=== PATIENT | male | born 1960 | race Caucasian/White ===

== ENCOUNTER 2017-06-19 11:27 | Inpatient (IN) | payer OTHER ==
[2017-06-19] MEDS ORDERED: DILTIAZEM 125 MG in SODIUM CHLORIDE 0.9% 100 ML IV SCH (13:30)
[2017-06-19] MEDS: HEPARIN SODIUM,PORCINE/D5W PMX 25,000 UNIT in DEXTROSE/WATER 1 500ML.BAG IV SCH (13:46)
--- NOTE | 2017-06-19 14:31 | P.CRDCN ---
History of Present Illness Consult reason: atrial fibrillation, shortness of breath History of present illness: Impression Atrial fibrillation with a rapid ventricular response associated with shortness of breath, symptoms for between 3-5 days Unable to lie flat last night in bed and came to the ER and was found to be in A. fib with RVR Remains in A. fib with RVR Hypertension, not taking his medications for a year and half Denies diabetes denies any other heart problems Denies palpitations in the past Patient presented with shortness of breath for the last 3-5 days. He initially thought it a viral syndrome or pneumonia. His breathing became worse day by day and last night he could not sleep flat in the for came to the ER. In the ER he was found to be in atrial fibrillation with RVR He's had a chest x-ray and a CT at [facility] awaiting for the final results Review of systems: No fever chills or rigors, no cough, phlegm or expectoration , no nausea, vomiting or diarrhea, no hematuria, dysuria, no musculoskeletal complaints, no strokes or seizures, no skin lesions.. His main complaint is shortness of breath with exertion and shortness of breath lying in bed he denies palpitations completely no syncope Currently on IV heparin and IV diltiazem Does not take any medications at home other than multivitamin and magnesium Social history 2 packs of cigarettes a day. Since last 2 days cut down since last 2 weeks. A 6 pack [place] Light every day before going to bed Daily cost around $20 a day for this habit Family history noncontributory On examination He is lying comfortably in bed at this time. Heart rates are about 120 beats a minute. Blood pressure is normal. No JVD thyromegaly or carotid bruits. Heart sounds are irregular no murmurs or gallops sounds are reduced bilaterally Extremities warm no edema Impression As above Plan Anticoagulated with ELIQUIS IV Cardizem followed by oral verapamil TSH is normal at [facility] Electrolytes are normal at [facility] Await computed tomography scan report Rate control and anticoagulation for now. 2-D echo and Doppler study Twelve-lead ECG shows atrial fibrillation with a heart rate of 110-120 beats a minute Medications and Allergies Home Medications Medication Instructions Recorded Confirmed Type RX: Magnesium 200 mg PO DAILY 06/19/17 06/19/17 History RX: Multivitamin [Men's 1 tab PO DAILY 06/19/17 06/19/17 History Multi-Vitamin] Allergies Allergy/AdvReac Type Severity Reaction Status Date / Time No Known Allergies Allergy Verified 06/19/17 13:23 Physical Exam Vitals: Intake and Output 06/18/17 06/19/17 06/19/17 22:59 06:59 14:59 Other: Weight 99.8 kg Patient Weight 06/20/17 06:59 Weight 99.8 kg Results Current Medications Generic Name Dose Route Start Last Admin Trade Name Freq PRN Reason Stop Dose Admin Heparin Sodium (Porcine) 0 unit 06/19/17 13:38 Heparin IV PER PROTOCOL PRN Low PTT Protocol Diltiazem HCl 125 mg/ Sodium 125 mls @ 15 mls/hr 06/19/17 13:30 06/19/17 13: 49 Chloride IV 15 mg/hr .Q8H20M SAMIR 15 mls/hr 15 MG/HR Administration Heparin Sodium/Dextrose 25,000 500 mls @ 19.99 mls/hr 06/19/17 13:30 13:46 unit/ IV Solution IV 10.02 units/kg/hr .Q24H SAMIR 19.99 mls/hr Protocol Administration 10.02 UNITS/KG/HR Intake and Output 06/18/17 06/19/17 06/19/17 22:59 06:59 14:59 Other: Weight 99.8 kg Patient Weight 06/20/17 06:59 Weight 99.8 kg
[2017-06-19 14:52] LABS: ALT 58 U/L (21-72); AST 28 U/L (17-59); Alkaline Phosphatase 73 U/L (38-126); Anion Gap 12 mmol/L; Blood Urea Nitrogen 18 mg/dL (9-20); Carbon Dioxide 19 mmol/L (22-30); Chloride 109 mmol/L (98-107); Cholesterol 127 mg/dL (<200); Glucose 99 mg/dL (74-99); HDL Cholesterol 46 mg/dL (40-60); Magnesium 1.9 mg/dL (1.6-2.3); Non-African American GFR(MDRD) >60 (>60 ml/min/1.73 sqM); Potassium 4.2 mmol/L (3.5-5.1); Sodium 140 mmol/L (137-145); Total Protein 6.7 g/dL (6.3-8.2)
[2017-06-19] MEDS ORDERED: LORazepam 1 MG TAB PO PRN (15:07)
[2017-06-19] MEDS ORDERED: TEMAZEPAM 15 MG CAP PO PRN (15:12)
[2017-06-19] MEDS ORDERED: HYDROcodone/APAP 5-325MG 1 EACH TAB PO PRN (15:12)
[2017-06-19 15:14] LABS: Creatine Kinase MB 0.7 ng/mL (0.0-2.4)
[2017-06-19 15:21] LABS: Troponin I 0.582 ng/mL (0.000-0.034)
[2017-06-19 15:27] LABS: INR 1.3 (<1.2)
[2017-06-19] MEDS ORDERED: LORazepam 2 MG/ML SYRINGE IV PRN ×3 (15:29)
[2017-06-19 15:32] LABS: Prothrombin Time 13.1 sec (9.0-12.0)
[2017-06-19 15:34] LABS: Partial Thromboplastin Time 29.3 sec (22.0-30.0)
--- NOTE | 2017-06-19 15:41 | XR ---
EXAMINATION TYPE: XR chest 1V portable DATE OF EXAM: 06/19/2017 CLINICAL HISTORY: CHF per order. Atrial fibrillation with abnormal cardiac lab values. TECHNIQUE: Single AP portable upright view of the chest is obtained. COMPARISON: Outside chest CT from earlier today. FINDINGS: There is cardiomegaly with mild central vascular congestion and developing patchy bibasila r atelectasis and/or infiltrates. No large pleural effusion or pneumothorax is seen bilaterally. Smal l to tiny bilateral pleural effusions on chest CT are less well seen on single frontal view x-ray. Os seous structures are intact. IMPRESSION: Suspect CHF exacerbation as there is cardiomegaly with central vascular congestion felt p resent. There is additional patchy bibasilar atelectasis and/or infiltrate noted.
[2017-06-19] MEDS: AZITHROMYCIN 500 MG in SODIUM CHLORIDE 0.9% 250 ML IVPB SCH (15:50)
[2017-06-19] MEDS: METOPROLOL SUCCINATE (ER) 50 MG TAB.ER.24H PO SCH ×2 (15:50→20:38)
[2017-06-19] MEDS: MAGNESIUM OXIDE 400 MG TAB PO SCH (15:50)
[2017-06-19] MEDS: IPRATROPIUM-ALBUTEROL 3 ML NEB INHALATION SCH ×2 (17:12→20:45)
[2017-06-19] MEDS ORDERED: WARFARIN 5 MG TAB PO ONE (18:00)
[2017-06-19 18:42] LABS: Glucose,Whole Blood 140 mg/dL (75-99)
[2017-06-19] MEDS ORDERED: NOREPINEPHRIN 4 MG-0.9% NS PMX 4 MG/250 ML ML IV SCH (19:30)
[2017-06-19] MEDS: THIAMINE 100 MG TAB PO SCH (20:38)
[2017-06-19 20:48] LABS: Creatine Kinase MB 0.8 ng/mL (0.0-2.4)
[2017-06-19 20:56] LABS: Troponin I 0.56 ng/mL (0.000-0.034)
[2017-06-19] MEDS: HEPARIN SODIUM,PORCINE 5,000 UNIT/ML 1 ML VIAL IV PRN (21:56)
[2017-06-19] MEDS ORDERED: NALOXONE 0.4 MG/ML 1 ML VIAL IV PRN (22:15)
[2017-06-20] MEDS ORDERED: Magnesium Replacement Protocol 1 EACH MISC MISCELLANE PRN (01:14)
[2017-06-20 02:19] LABS: Creatine Kinase MB 0.8 ng/mL (0.0-2.4)
[2017-06-20 02:21] LABS: Troponin I 0.501 ng/mL (0.000-0.034)
[2017-06-20 04:40] LABS: Basophils # (A) 0.1 k/uL (0-0.2); Basophils % (A) 1 %; CH 31.1; CHCM 34.2; Eosinophils # (A) 0.1 k/uL (0-0.7); Eosinophils % (A) 1 %; HCT 40.5 % (39.0-53.0); HDW 2.49; Luc # (Auto) 0.27; Luc % (Auto) 3; Lymphocytes # (A) 2.6 k/uL (1.0-4.8); Lymphocytes % (A) 27 %; MCH 31.7 pg (25.0-35.0); MCHC 34.7 g/dL (31.0-37.0); MCV 91.3 fL (80.0-100.0); Mean Platelet Volume 7.1; Monocytes # (A) 0.5 k/uL (0-1.0); Monocytes % (A) 5 %; Neutrophils # (A) 6.2 k/uL (1.3-7.7); Neutrophils % (A) 64 %; RBC 4.43 m/uL (4.30-5.90); RDW 12.4 % (11.5-15.5); WBC 9.6 k/uL (3.8-10.6); WBC (Perox) 10.06
[2017-06-20 04:49] LABS: INR 1.4 (<1.2)
[2017-06-20 04:50] LABS: Partial Thromboplastin Time 35.7 sec (22.0-30.0)
[2017-06-20 04:53] LABS: Anion Gap 11 mmol/L; Blood Urea Nitrogen 24 mg/dL (9-20); Calcium 8.6 mg/dL (8.4-10.2); Carbon Dioxide 18 mmol/L (22-30); Chloride 108 mmol/L (98-107); Glucose 99 mg/dL (74-99); Magnesium 1.9 mg/dL (1.6-2.3); Non-African American GFR(MDRD) >60 (>60 ml/min/1.73 sqM); Phosphorous 4.6 mg/dL (2.5-4.5); Potassium 4.2 mmol/L (3.5-5.1); Sodium 137 mmol/L (137-145)
[2017-06-20] MEDS: HEPARIN SODIUM,PORCINE 5,000 UNIT/ML 1 ML VIAL IV PRN (05:09)
[2017-06-20] MEDS: MAGNESIUM SULFATE-D5W PMX 1 GM in DEXTROSE/WATER 1 100ML.BAG IVPB SCH ×2 (05:51→06:52)
--- NOTE | 2017-06-20 07:40 | XR ---
EXAMINATION TYPE: XR chest 1V DATE OF EXAM: 06/20/2017 CLINICAL HISTORY: Difficulty breathing and CHF progress study. TECHNIQUE: Single AP portable upright view of the chest is obtained. COMPARISON: Chest x-ray and outside chest CT from one day earlier. FINDINGS: There is cardiomegaly with mild central vascular congestion redemonstrated. No large pleur al effusion or pneumothorax is seen bilaterally. Small to tiny bilateral pleural effusions on chest C T are less well seen on single frontal view x-ray. Osseous structures are intact. Trachea is mildly c oncentrically narrowed similar to prior. IMPRESSION: Overall stable findings, findings consistent with CHF exacerbation as there is cardiome danilo with central vascular congestion redemonstrated without significant interval change.
[2017-06-20] MEDS: IPRATROPIUM-ALBUTEROL 3 ML NEB INHALATION SCH ×4 (07:58→20:29)
[2017-06-20] MEDS: THIAMINE 100 MG TAB PO SCH ×2 (08:40→16:44)
[2017-06-20] MEDS: MULTIVITAMINS, THERA 1 EACH TAB PO SCH (08:40)
[2017-06-20] MEDS: MAGNESIUM OXIDE 400 MG TAB PO SCH (08:40)
[2017-06-20] MEDS: METOPROLOL SUCCINATE (ER) 50 MG TAB.ER.24H PO SCH (08:40)
[2017-06-20] MEDS: AZITHROMYCIN 500 MG in SODIUM CHLORIDE 0.9% 250 ML IVPB SCH (08:40)
--- NOTE | 2017-06-20 09:33 | HP ---
HISTORY AND PHYSICAL CHIEF COMPLAINTS: Shortness of breath and palpitations and pneumonia. HISTORY OF PRESENT ILLNESS: This is a 56-year-old gentleman with an past medical history of multiple medical illnesses including hypertension, not being followed by any primary physician in the outpatient setting was admitted to [facility] in [place] with complaints of shortness of breath and cough. The patient was thought to have pneumonia. Subsequently, the patient also had significant ETOH as well. Subsequently, the patient was found to be in atrial fibrillation with fast ventricular rate. The patient was started on Cardizem drip and transferred to [facility] for further evaluation and treatment. There is no history of fever, rigors. No history of headache, loss consultations or seizures. PAST MEDICAL HISTORY: Hypertension. MEDICATIONS: 1. Multivitamins. 2. Magnesium. ALLERGIES: None. FAMILY HISTORY: History of Crohn disease and diabetes mellitus in the family. SOCIAL HISTORY: Previous history of smoking and alcohol about 6 beers per day. REVIEW OF SYSTEMS: ENT: No diminished hearing or vision. CARDIOVASCULAR: As mentioned earlier. RESPIRATORY: As mentioned earlier. GI: No nausea. : No dysuria. NERVOUS SYSTEM: No numbness or weakness. ALLERGY/IMMUNOLOGY: No asthma or hayfever. MUSCULOSKELETAL: As mentioned earlier. HEMATOLOGY/ONCOLOGY: No history of anemia. ENDOCRINE: No history of diabetes or hypothyroidism. CONSTITUTIONAL: As mentioned earlier. DERMATOLOGY: Negative. RHEUMATOLOGY: Negative. PSYCHIATRY: As mentioned earlier. PHYSICAL EXAMINATION: The patient is alert and oriented x3. Pulse is 80 and regular, blood pressure is 86/68, respiration 18, temperature is normal, pulse ox 98% on room air. HEENT: Conjunctivae normal. Oral mucosa moist. NECK: No jugular venous distention. No carotid bruit. No lymph node enlargement. CARDIOVASCULAR: S1, S2. RESPIRATORY: Breath sounds diminished at bases. A few scattered rhonchi and crackles bilaterally, right more than left. ABDOMEN: Soft, nontender. No mass palpable. LEGS: No edema, no swelling. NERVOUS SYSTEM: Higher function as mentioned earlier. Moves all four limbs. No focal motor deficits. LYMPHATICS: No lymphadenopathy in the neck, axillae or groin. SKIN: No rash, ulcer or bleeding. LABS: INR is 1.3. Otherwise CO2 is 19, troponin 0.582. ASSESSMENT: 1. Shortness of breath for evaluation, possibly congestive heart failure exacerbation. 2. Troponin 0.0582, possible acute non ST-segment elevation myocardial infarction. 3. Rule out right lower lobe pneumonia. 4. Atrial fibrillation new onset with fast ventricular rate. 5. History of EtOH. 6. History of nicotine dependence. 7. Hypertension. RECOMMENDATIONS AND DISCUSSION: In this 56-year-old gentleman who presented with multiple complex medical issues, we will monitor the patient closely. Continue current treatment. Continue symptomatic treatment. We will monitor the patient closely. The patient was started on empiric antibiotics. Otherwise I would also recommend cardiology and pulmonology consultations. A 2D echo has been ordered as well. The most recent chest x-ray was personally reviewed by me, which showed bibasilar infiltrate. We will also order a BNP also. Otherwise overall prognosis guarded because of multiple complex medical issues. Alcoholic cardiomyopathy is a distinct possibility. Otherwise, we will continue the antibiotic coverage and continue to monitor. Monitor fluid and electrolyte balance as well. Further recommendations to follow. Coumadin has been initiated by Cardiology. Otherwise, I recommend the patient a psychosocial rehabilitation counselor consultation, alcohol rehab and as well as follow up with primary physician closely in the outpatient setting also. MMODL / IJN: [id number] /
--- NOTE | 2017-06-20 11:14 | ECHOF ---
Referral Reason:New afib MEASUREMENTS -------- HEIGHT: 185.4 cm WEIGHT: 99.8 kg BP: 140/73 IVSd: 1.3 cm (0.6 - 1.1) LVIDd: 5.9 cm (3.9 - 5.3) LVPWd: 1.4 cm (0.6 - 1.1) LVIDs: 4.8 cm LA Diam: 4.3 cm (2.7 - 3.8) RVIDd: 3.1 cm (< 3.3) LAESV Index (A-L): 42.88 ml/m Ao Diam: 3.4 cm (2.0 - 3.7) AV Cusp: 1.9 cm (1.5 - 2.6) EPSS: 1.7 cm RAP: 15.00 mmHg RVSP: 49.34 mmHg MV EF SLOPE: 106.57 mm/s (70 - 150) MV EXCURSION: 14.92 mm (> 18.000) FINDINGS -------- Atrial fibrillation. This was a technically adequate study. The left ventricular size is normal. There is moderate concentric left ventricular hypertrophy. Overall left ventricular systolic function is severely impaired with, an EF < 20%. The right ventricle is normal in size. LA is moderately dilated 34-39 ml/m2 The right atrium is normal in size. 1.5mg of Definity was utilized for enhancement of images There is mild aortic valve sclerosis. Mild mitral annular calcification present. Mild mitral regurgitation is present. Mild tricuspid regurgitation present. There is moderate pulmonary hypertension. The right ventricular systolic pressure, as measured by Doppler, is 49.34mmHg. The pulmonic valve was not well visualized. The aortic root size is normal. The inferior vena cava is dilated with poor inspiratory collapse which is consistent with estimated right atrial pressure of 15 mmHg. There is no pericardial effusion. CONCLUSIONS -------- 1. Atrial fibrillation. 2. There is mild aortic valve sclerosis. 3. Mild mitral annular calcification present. 4. Mild mitral regurgitation is present. 5. Mild tricuspid regurgitation present. 6. There is moderate pulmonary hypertension. 7. The right ventricular systolic pressure, as measured by Doppler, is 49.34mmHg. 8. The pulmonic valve was not well visualized. 9. The aortic root size is normal. 10. The inferior vena cava is dilated with poor inspiratory collapse which is consistent with estimated right atrial pressure of 15 mmHg. 11. There is no pericardial effusion. 12. This was a technically adequate study. 13. The left ventricular size is normal. 14. There is moderate concentric left ventricular hypertrophy. 15. Overall left ventricular systolic function is severely impaired with, an EF < 20%. 16. The right ventricle is normal in size. 17. LA is moderately dilated 34-39 ml/m2 18. The right atrium is normal in size. 19. 1.5mg of Definity was utilized for enhancement of images DIABETES EDUCATOR: Sheila Napoles RDCS
--- NOTE | 2017-06-20 11:14 | P.CNPUL ---
History of Present Illness Consult date: 06/20/17 Reason for consult: dyspnea History of present illness: A 56-year-old male patient who initially presented to [facility] because of increased shortness of breath. The patient was immediately identified to be in nature fibrillation with rapid ventricular response. His symptoms have been going on for about 3-5 days prior to him coming to the hospital. He was getting short of breath and he also complained of orthopnea where he was unable to lay down flat. For that reason, the patient got transferred to [facility]. Echocardiogram was done and I was told that the patient was found to have severe cardiomyopathy with an ejection fraction of less than 20%. At the same time the patient was placed on a Cardizem drip that was brought up to 15 mg an hour. He was still tachycardic. Based on that he was given Lopressor 50 mg by mouth 3 times a day. Following the addition of Lopressor, the patient became hypotensive and diaphoretic. His heart rate dropped down to the mid 60s and he became hypotensive. His systolic blood pressure dropped down to the 70s. At that point he got moved to the intensive care unit. The Cardizem drip was discontinued. He was given a bolus of 500 mL of normal saline. He responded gradually and his blood pressure is currently showing a systolic of above 100. Most recent BP is 104/88. His cardiac rhythm is still atrial fibrillation at the rate is controlled at low 100s. Denies having any chest pain. He shortness of breath is improved. No edema in lower extremities. No history of hyper or hypothyroidism. No history of sleep apnea. Troponins are 0.52 respectively. BNP level was 7370. His blood work showed a component of non-anion gap metabolic acidosis with a bicarb level of 18. His chest x-ray shows cardiomegaly along with pulmonary vessel congestion typical of an underlying CHF. No fever. No chills. No night sweats. He is a chronic alcoholic and he drinks sixpack [place] Light on a daily basis. Review of Systems Constitutional: Reports fatigue, Reports weakness Eyes: denies blurred vision, denies bulging eye, denies decreased vision Ears: deny: decreased hearing, ear discharge, earache Ears, nose, mouth and throat: Denies headache, Denies sore throat Cardiovascular: Reports decreased exercise tolerance, Reports dyspnea on exertion, Reports paroxysmal nocturnal dyspnea, Reports rapid heart beat, Reports shortness of breath Respiratory: Reports dyspnea Gastrointestinal: Denies abdominal pain, Denies diarrhea, Denies nausea, Denies vomiting Genitourinary: Reports as per HPI Musculoskeletal: Denies myalgias Musculoskeletal: absent: ankle pain, ankle stiffness, ankle swelling, as per HPI Integumentary: Denies pruritus, Denies rash Neurological: Denies numbness, Denies weakness Psychiatric: Denies anxiety, Denies depression Past Medical History Past Medical History: Hypertension Additional Past Medical History / Comment(s): Hypertension, alcoholism and smoker History of Any Multi-Drug Resistant Organisms: None Reported Past Surgical History: Orthopedic Surgery Past Anesthesia/Blood Transfusion Reactions: No Reported Reaction Past Psychological History: No Psychological Hx Reported Smoking Status: Former smoker Past Alcohol Use History: Daily Past Drug Use History: None Reported - Past Family History Father Family Medical History: Cancer, Coronary Artery Disease (CAD), Diabetes Mellitus Mother Family Medical History: Coronary Artery Disease (CAD), Myocardial Infarction (ID ) Medications and Allergies Home Medications Medication Instructions Recorded Confirmed Type Magnesium 200 mg PO DAILY 06/19/17 06/19/17 History Multivitamins, Thera [Multivitamin 1 tab PO DAILY 06/19/17 06/19/17 History (formulary)] Allergies Allergy/AdvReac Type Severity Reaction Status Date / Time No Known Allergies Allergy Verified 06/19/17 13:23 Physical Exam Vitals: Vital Signs Temp Pulse Pulse Pulse Resp BP BP 06/20/17 10:00 110 H 20 102/86 06/20/17 09:00 98.0 F 102 H 46 H 94/83 06/20/17 08:13 89 06/20/17 08:00 97 14 121/82 06/20/17 07:58 95 06/20/17 07:00 95 28 H 116/88 06/20/17 06:30 98 26 H 122/74 06/20/17 06:00 98 24 119/80 06/20/17 05:30 114 H 22 112/79 06/20/17 05:00 119 H 24 109/84 06/20/17 04:30 105 H 28 H 118/93 06/20/17 04:00 97.4 F L 99 27 H 118/88 06/20/17 03:30 106 H 28 H 108/84 06/20/17 03:00 101 H 18 103/88 06/20/17 02:30 98 22 106/74 06/20/17 02:00 103 H 20 111/92 06/20/17 01:30 93 21 101/76 06/20/17 01:00 96 20 92/78 06/20/17 00:30 91 20 103/63 06/20/17 00:00 98.0 F 90 22 102/82 06/19/17 23:30 83 18 106/79 06/19/17 23:00 83 18 93/73 06/19/17 22:30 78 20 103/71 06/19/17 22:00 99 20 98/68 06/19/17 21:30 75 18 92/66 06/19/17 21:00 80 18 84/68 06/19/17 20:30 97.4 F L 88 16 78/64 06/19/17 20:10 82 20 89/64 06/19/17 19:46 73 93/61 06/19/17 19:30 83 16 85/49 06/19/17 19:24 67 66/48 06/19/17 19:13 76 65/41 06/19/17 19:05 59 L 88/50 06/19/17 19:00 66 83/56 06/19/17 18:55 67 72/49 06/19/17 18:48 57 L 16 79/48 06/19/17 18:42 58 L 99/48 06/19/17 18:30 66 74/51 06/19/17 18:25 75 105/52 06/19/17 18:20 67 18 83/58 06/19/17 18:15 68 20 06/19/17 18:08 70/52 06/19/17 17:55 22 06/19/17 17:50 60 26 H 78/52 06/19/17 17:22 80 06/19/17 17:16 78 06/19/17 16:00 97.6 F 88 16 107/67 06/19/17 14:58 97.4 F L 124 H 113 H 16 132/91 06/19/17 13:17 97.8 F 124 H 113 H 16 132/91 Pulse Ox 06/20/17 10:00 96 06/20/17 09:00 98 06/20/17 08:13 06/20/17 08:00 94 L 06/20/17 07:58 94 L 06/20/17 07:00 96 06/20/17 06:30 98 06/20/17 06:00 95 06/20/17 05:30 94 L 06/20/17 05:00 99 06/20/17 04:30 99 06/20/17 04:00 95 06/20/17 03:30 95 06/20/17 03:00 98 06/20/17 02:30 98 06/20/17 02:00 96 06/20/17 01:30 97 06/20/17 01:00 93 L 06/20/17 00:30 96 06/20/17 00:00 96 06/19/17 23:30 95 06/19/17 23:00 93 L 06/19/17 22:30 99 06/19/17 22:00 98 06/19/17 21:30 96 06/19/17 21:00 98 06/19/17 20:30 99 06/19/17 20:10 06/19/17 19:46 06/19/17 19:30 97 06/19/17 19:24 06/19/17 19:13 06/19/17 19:05 06/19/17 19:00 06/19/17 18:55 06/19/17 18:48 96 06/19/17 18:42 06/19/17 18:30 06/19/17 18:25 06/19/17 18:20 95 06/19/17 18:15 96 06/19/17 18:08 06/19/17 17:55 97 06/19/17 17:50 90 L 06/19/17 17:22 06/19/17 17:16 06/19/17 16:00 93 L 06/19/17 14:58 96 06/19/17 13:17 97 Intake and Output 06/19/17 06/20/17 06/20/17 22:59 06:59 14:59 Intake Total 303.252 763.407 110 Output Total 175 50 Balance 303.252 588.407 60 Intake: IV 140 210 110 0.9 40 110 10 Magnesium Sulfate-D5w Pmx 100 100 1 gm In Dextrose/Water 1 100ml.bag @ 100 mls/hr IVPB Q1H SAMIR Rx#: [id number] cefTRIAXone 1,000 mg In 100 Sodium Chloride 0.9% 50 ml @ 100 mls/hr IVPB Q24H SAMIR Rx#:[id number] Intake, IV Titration 163.252 193.407 Amount Heparin Sodium,Porcine/ 163.252 193.407 D5w Pmx 25,000 unit In Dextrose/Water 1 500ml. bag @ 10.02 UNITS/KG/HR 19.99 mls/hr IV .Q24H SAMIR Rx#:[id number] Oral 360 Output: Urine 175 50 Other: Voiding Method Urinal Urinal # Bowel Movements 1 Weight 96.5 kg 97.6 kg 97.6 kg Patient Weight 06/21/17 06:59 Weight 97.6 kg Results Head exam was generally normal. There was no scleral icterus or corneal arcus. Mucous membranes were moist. Neck is supple and there is positive JVDs and there is no goiter or neck masses this point. Lung sounds are diminished and there is some few faint bibasilar cracks in lung bases bilaterally. No wheezes or rhonchi. Heart sounds are irregular and tachycardic still. There is an S3 gallop. No cervical murmurs appreciated.Abdominal exam revealed normal bowel sounds. The abdomen was soft, non-tender, and without masses, organomegaly, or appreciable enlargement of the abdominal aorta. My normal extremities neurologically the patient is intact and the patient is awake and alert. - Laboratory Findings CBC and BMP: 06/20/17 04:11 06/20/17 04:11 PT/INR, D-dimer PT 14.0 sec (9.0-12.0) H 06/20/17 04:11 INR 1.4 (<1.2) H 06/20/17 04:11 D-Dimer 1.05 mg/L FEU (<0.60) H 06/19/17 14:30 Abnormal lab findings: Abnormal Labs 06/19/17 06/19/17 06/19/17 14:30 14:30 14:30 PT 13.1 H INR 1.3 H APTT D-Dimer 1.05 H Chloride 109 H Carbon Dioxide 19 L BUN POC Glucose (mg/dL) Phosphorus Total Bilirubin 3.0 H Troponin I 0.582 H* 06/19/17 06/19/17 06/20/17 18:40 20:00 01:30 PT INR APTT D-Dimer Chloride Carbon Dioxide BUN POC Glucose (mg/dL) 140 H Phosphorus Total Bilirubin Troponin I 0.560 H* 0.501 H* 06/20/17 06/20/17 04:11 04:11 PT 14.0 H INR 1.4 H APTT 35.7 H D-Dimer Chloride 108 H Carbon Dioxide 18 L BUN 24 H POC Glucose (mg/dL) Phosphorus 4.6 H Total Bilirubin Troponin I - Diagnostic Findings Chest x-ray: image reviewed Assessment and Plan Plan: Assessment 1 new-onset atrial fibrillation with rapid ventricular response. The patient was on high dose Cardizem drip at 50 mg an hour. The patient developed significant hypotension and based on that the Cardizem drip was discontinued and the patient is currently on oral metoprolol 50 mg by mouth twice a day. He is anticoagulated IV heparin. 2 CHF with an ejection fraction of less than 20%, awaiting official echocardiogram 3 mild pulmonary edema secondary to CHF, currently the patient on oxygen at 2 L/ m nasal cannula 4 transient hypotension, drug induced in the setting of an underlying cardiomyopathy, recovered and the patient is currently on no pressors. 5 smoker 6 alcoholism 7 troponin leak Plan Continue oral Lopressor and medication adjustments will be kept up to cardiology. May need to use an NORIS inhibitor at a later stage once his blood pressure is stabilized further. Continue IV heparin and there are plans to switch this patient to warfarin at a the later stage. Awaiting full echocardiogram. May need a stress test or a cardiac catheterization at a later stage looking for any underlying atherosclerotic heart disease or ischemic cardiomyopathy. Currently the patient is free of any chest pain. We'll discussed this case with cardiology. He should be able to transfer back to telemetry for further monitoring. Watch for any signs of delirium tremens. Discontinue the Rocephin and Zithromax.
[2017-06-20] MEDS ORDERED: DEXTROSE 5% IN WATER 250 ML with AMIODARONE 300 MG IV ONE (11:51)
[2017-06-20] MEDS: APIXABAN 5 MG TAB PO SCH ×2 (12:38→21:08)
[2017-06-20] MEDS: SPIRONOLACTONE 25 MG TAB PO SCH (12:38)
[2017-06-20] MEDS: ALPRAZolam 0.25 MG TAB PO PRN (14:12)
[2017-06-20] MEDS: AMIODARONE 450 MG in DEXTROSE 5% IN WATER 250 ML IV SCH ×4 (14:40→22:30)
[2017-06-20] MEDS: HEPARIN SODIUM,PORCINE/D5W PMX 25,000 UNIT in DEXTROSE/WATER 1 500ML.BAG IV SCH (14:41)
--- NOTE | 2017-06-20 15:43 | P.PN ---
Subjective Events of the last 24 hours noted. Patient could not tolerate IV Cardizem and 50 mg of metoprolol. 2-D echo revealed very severe LV dysfunction of less than 20%, global hypokinesis and He presented to the hospital very symptomatic with atrial fibrillation with RVR On detailed questioning and after speaking to his he drinks more than just 6 beers a day, every evening Dilated left ventricle with global hypokinesis Borderline troponins indicative of his heart failure status, decompensated, with very poor inotropic reserve as evidenced by lack of tolerance to standard doses of medications On examination his blood pressure ranges from 96-170 mmHg respirations are 20 24 bpm pulse rate 130 beats a minute atrial fibrillation with RVR Breath sounds are reduced bilaterally Heart sounds S1 and S2 are soft and irregular abdomen soft nontender Impression Severe dilated cardiomyopathy with global hypokinesis with an ejection fraction of less than 20%, alcohol-related myocardial injury Congestive heart failure, systolic class III Intolerant of low-dose beta blockers and IV Cardizem both of which are on hold History of smoking Regular alcohol use on a daily basis, confirmed by his Plan Anticoagulated with ELIQUIS and then stop heparin after a few hours IV amiodarone 300 mg IV bolus slowly over one to 2 hours and then infusion of amiodarone I will plan on electrical cardioversion after about 48 hours Hopefully in sinus rhythm his heart failure status will improve This is a very sick gentleman with a very poor inotropic reserve I had a detailed discussion with his and she stated that she has noted that he is unable to carry on with his usual activities for several months but worse since the last one month and according to the patient about 3-5 days prior to admission he became very short of breath. Presumably it is then when he went into atrial fibrillation With the loss of atrial kick his heart failure to could turn for the worse secondary to underlying severe cardio myopathy TSH is normal Complete abstinence from alcohol recommended This is a very sick patient and I explained very clearly to the patient's in the presence of the patient Objective - Vital Signs Vital signs: Vital Signs Temp 98.0 F 06/20/17 12:00 Pulse 130 H 06/20/17 15:00 Resp 25 H 06/20/17 15:00 BP 96/84 06/20/17 15:00 Pulse Ox 99 06/20/17 15:00 Intake & Output 06/19/17 06/20/17 06/20/17 18:59 06:59 18:59 Intake Total 1066.659 750 Output Total 175 450 Balance 891.659 300 Weight 95.4 kg 97.6 kg 97.6 kg Intake: IV 350 260 0.9 150 160 Magnesium Sulfate-D5w Pmx 100 100 1 gm In Dextrose/Water 1 100ml.bag @ 100 mls/hr IVPB Q1H SAMIR Rx#: [id number] cefTRIAXone 1,000 mg In 100 Sodium Chloride 0.9% 50 ml @ 100 mls/hr IVPB Q24H SAMIR Rx#:[id number] Intake, IV Titration 356.659 250 Amount Azithromycin 500 mg In 250 Sodium Chloride 0.9% 250 ml @ 125 mls/hr IVPB DAILY SAMIR Rx#:[id number] Heparin Sodium,Porcine/ 356.659 D5w Pmx 25,000 unit In Dextrose/Water 1 500ml. bag @ 10.02 UNITS/KG/HR 19.99 mls/hr IV .Q24H SAMIR Rx#:[id number] Oral 360 240 Output: Urine 175 450 Other: Voiding Method Urinal Urinal # Bowel Movements 1 - Labs CBC & Chem 7: 06/20/17 04:11 06/20/17 04:11 Labs: Abnormal Lab Results - Last 24 Hours (Table) 06/19/17 06/19/17 06/20/17 Range/Units 18:40 20:00 01:30 PT (9.0-12.0) sec INR (<1.2) APTT (22.0-30.0) sec Chloride (98-107) mmol/L Carbon Dioxide (22-30) mmol/L BUN (9-20) mg/dL POC Glucose (mg/dL) 140 H (75-99) mg/dL Phosphorus (2.5-4.5) mg/dL Troponin I 0.560 H* 0.501 H* (0.000-0.034) ng/mL 06/20/17 06/20/17 06/20/17 Range/Units 04:11 04:11 11:09 PT 14.0 H (9.0-12.0) sec INR 1.4 H (<1.2) APTT 35.7 H 48.7 H (22.0-30.0) sec Chloride 108 H (98-107) mmol/L Carbon Dioxide 18 L (22-30) mmol/L BUN 24 H (9-20) mg/dL POC Glucose (mg/dL) (75-99) mg/dL Phosphorus 4.6 H (2.5-4.5) mg/dL Troponin I (0.000-0.034) ng/mL
[2017-06-20] MEDS: METOPROLOL TARTRATE 12.5 MG TAB PO SCH (21:04)
--- NOTE | 2017-06-20 21:42 | PN ---
PROGRESS NOTE DATE OF SERVICE: 06/20/2017 This is a progress note. This 56-year-old gentleman admitted with shortness of breath and as well as atrial fibrillation also had CHF also. The ejection fraction found to be 10 to 20% indicating possibly cardiomyopathy. The cardiomyopathy could be alcoholic in nature. The patient is intolerant to beta blockers and Cardizem which resulted in hypertension. Patient was transferred to ICU overnight. The patient was started on Amiodarone. At this time Cardiology following the patient closely. PAST MEDICAL HISTORY: Past medical history reviewed. REVIEW OF SYMPTOMS: Cardio system: As mentioned earlier. RESPIRATORY: As mentioned earlier. GI no nausea or vomiting. no dysuria. Central nervous system: No numbness or weakness. Allergy/Immunology: No asthma or hayfever. Musculoskeletal: As mentioned earlier. Hematology/Oncology: No history of anemia. MEDICATIONS: Current medications are reviewed and include: 1. [place] q.6h p.r.n. 2. DuoNeb q.i.d. and p.r.n. 3. Eliquis 5 mg p.o. b.i.d. 4. Heparin. 5. Ativan. 6. Lopressor 12.5 mg b.i.d. 7. Narcan p.r.n. 8. Levophed drip overnight as well. .. 9. Aldactone. 10.Restoril. 11.Vitamin B1. PHYSICAL EXAMINATION: The patient is alert and oriented times three. Pulse 126. Irregular. Blood pressure 170/92. Respiratory rate 14. Temperature normal. Pulse ox 98% on room air. HEENT: Conjunctivae normal. Oral mucosa moist. Neck is jugular venous distention at the root of the neck. Cardiovascular is S1, S2. Tachycardic and muffled and S3 present. Ejection systolic murmur present. Respiratory: Breath sounds diminished at the bases. Bilateral scattered rhonchi present. A few crackles also heard. Abdomen is soft, nontender. No mass palpable. Legs no edema. No swelling. Central nervous system: Higher functions as mentioned earlier. Moves all four limbs. No focal deficits. Lymphatics: No lymph nodes palpable in the neck, axillae or groin. Skin: No ulcer, rash or bleeding. LABORATORY DATA: At this time shows CBC within normal limits. An APTT 32.7, and BUN is 24, BNP is 7370. Troponin 0.510. ASSESSMENT: 1. Shortness of breath with possible congestive heart failure acute exacerbation with acute on chronic diastolic dysfunction. Ejection fraction 20% with possibly cardiomyopathy dilated. 2. Possible dilated cardiomyopathy secondary to alcohol. 3. Troponin 0.0582. Rule out acute non ST segment elevation myocardial infarction. 4. Atrial fibrillation new onset with fast ventricular rate. 5. Hypotension with cardiogenic shock. 6. History of ETOH. 7. History of nicotine dependence. 8. Hypertension. RECOMMENDATIONS AND DISCUSSION: Recommend to continue current medications, continue symptomatic treatment. Otherwise, at this time, monitor fluid and electrolytes balance closely. Antiarrhythmics. Beta blockers to be avoided. Amiodarone is initiated. The patient is started on Eliquis too. Otherwise continue to monitor. Continue for further evaluation. Cardiology evaluation as well. Prognosis guarded because of multiple complex medical issues. Further recommendations to follow. Please send a copy to my office. MMODL / IJN: [id number] /
[2017-06-21] MEDS: ALPRAZolam 0.25 MG TAB PO PRN (04:35)
[2017-06-21 04:57] LABS: Basophils # (A) 0.1 k/uL (0-0.2); Basophils % (A) 1 %; CH 32.7; CHCM 35.5; Eosinophils # (A) 0.1 k/uL (0-0.7); Eosinophils % (A) 1 %; HCT 42.5 % (39.0-53.0); HDW 2.49; HGB 14.4 gm/dL (13.0-17.5); Luc # (Auto) 0.26; Luc % (Auto) 3; Lymphocytes # (A) 2.7 k/uL (1.0-4.8); Lymphocytes % (A) 27 %; MCH 31.5 pg (25.0-35.0); MCV 92.6 fL (80.0-100.0); Mean Platelet Volume 7.7; Monocytes # (A) 0.7 k/uL (0-1.0); Monocytes % (A) 7 %; Neutrophils # (A) 6.4 k/uL (1.3-7.7); Neutrophils % (A) 63 %; RBC 4.59 m/uL (4.30-5.90); RDW 13.2 % (11.5-15.5); WBC 10.2 k/uL (3.8-10.6); WBC (Perox) 10.84
[2017-06-21 05:04] LABS: INR 1.7 (<1.2); Prothrombin Time 16.7 sec (9.0-12.0)
[2017-06-21 05:25] LABS: ALT 561 U/L (21-72); AST 705 U/L (17-59); Alkaline Phosphatase 110 U/L (38-126); Anion Gap 10 mmol/L; Blood Urea Nitrogen 24 mg/dL (9-20); Calcium 8.9 mg/dL (8.4-10.2); Carbon Dioxide 18 mmol/L (22-30); Chloride 108 mmol/L (98-107); Glucose 100 mg/dL (74-99); Magnesium 2.1 mg/dL (1.6-2.3); Non-African American GFR(MDRD) >60 (>60 ml/min/1.73 sqM); Potassium 4.5 mmol/L (3.5-5.1); Sodium 136 mmol/L (137-145); Total Bilirubin 1.5 mg/dL (0.2-1.3); Total Protein 6.3 g/dL (6.3-8.2)
--- NOTE | 2017-06-21 07:07 | XR ---
EXAMINATION TYPE: XR chest 1V DATE OF EXAM: 06/21/2017 CLINICAL HISTORY: Difficulty breathing progress study. TECHNIQUE: Single AP portable upright view of the chest is obtained. COMPARISON: Chest x-ray from one day earlier FINDINGS: There is cardiomegaly with central vascular congestion that remains present. No large pleu ral effusion or pneumothorax is seen bilaterally. Small to tiny bilateral pleural effusions on recent chest CT are less well seen on single frontal view x-ray. Osseous structures are intact. Trachea is mildly concentrically narrowed similar to prior near level of clavicles. IMPRESSION: Overall stable findings, cardiomegaly with central vascular congestion suggesting CHF e xacerbation all redemonstrated. Underlying infiltrates not excluded particularly in the lung bases.
[2017-06-21] MEDS: IPRATROPIUM-ALBUTEROL 3 ML NEB INHALATION SCH ×4 (08:12→19:52)
[2017-06-21] MEDS ORDERED: FUROSEMIDE 10 MG/ML 4 ML VIAL IV STA (08:23)
[2017-06-21] MEDS: SPIRONOLACTONE 25 MG TAB PO SCH (08:26)
[2017-06-21] MEDS: MAGNESIUM OXIDE 400 MG TAB PO SCH (08:26)
[2017-06-21] MEDS: APIXABAN 5 MG TAB PO SCH ×2 (08:26→21:42)
[2017-06-21] MEDS: AMIODARONE 450 MG in DEXTROSE 5% IN WATER 250 ML IV SCH ×4 (08:49→10:38)
[2017-06-21] MEDS: METOPROLOL TARTRATE 12.5 MG TAB PO SCH ×2 (09:31→21:42)
--- NOTE | 2017-06-21 09:40 | P.PN ---
Subjective A 56-year-old male patient who initially presented to [facility] because of increased shortness of breath. The patient was immediately identified to be in nature fibrillation with rapid ventricular response. His symptoms have been going on for about 3-5 days prior to him coming to the hospital. He was getting short of breath and he also complained of orthopnea where he was unable to lay down flat. For that reason, the patient got transferred to [facility]. Echocardiogram was done and I was told that the patient was found to have severe cardiomyopathy with an ejection fraction of less than 20%. At the same time the patient was placed on a Cardizem drip that was brought up to 15 mg an hour. He was still tachycardic. Based on that he was given Lopressor 50 mg by mouth 3 times a day. Following the addition of Lopressor, the patient became hypotensive and diaphoretic. His heart rate dropped down to the mid 60s and he became hypotensive. His systolic blood pressure dropped down to the 70s. At that point he got moved to the intensive care unit. The Cardizem drip was discontinued. He was given a bolus of 500 mL of normal saline. He responded gradually and his blood pressure is currently showing a systolic of above 100. Most recent BP is 104/88. His cardiac rhythm is still atrial fibrillation at the rate is controlled at low 100s. Denies having any chest pain. He shortness of breath is improved. No edema in lower extremities. No history of hyper or hypothyroidism. No history of sleep apnea. Troponins are 0.52 respectively. BNP level was 7370. His blood work showed a component of non-anion gap metabolic acidosis with a bicarb level of 18. His chest x-ray shows cardiomegaly along with pulmonary vessel congestion typical of an underlying CHF. No fever. No chills. No night sweats. He is a chronic alcoholic and he drinks sixpack [place] on a daily basis. On 06/21/2017 I'm seeing this patient in follow-up. The patient's critically ill. The patient is in acute heart failure and he presented with A. fib RVR. This morning he is able to sit up on a chair. He has orthopnea and he gets uncomfortable when he lays down flat. He still has neck veins and his chest x- ray still showing pulmonary edema. He has a nagging dry cough. His cardiac rhythm has slowed down is currently in a flutter at the rate of 113. He was started on amiodarone drip which is running at 1 mg/m. He will be loaded and subsequently maintained on oral amiodarone. He is also on metoprolol 12.5 mg by mouth twice a day. He was given a dose of Lasix this morning and he diuresed more than 700 mL of urine. His echocardiogram showed ejection fraction of less than 20%. Left atrium was moderately dilated. The right ventricle systolic pressure was 49 mmHg. No pericardial effusion. It was moderate degree of concentric left ventricular hypertrophy. The patient has no signs of delirium tremens. His AST and ALTs elevated probably related to shock liver in the setting of an acute heart failure. In terms of anticoagulation, the patient was taken off IV heparin and he was started another course. I discussed this case with Dr. Quintana. He is being contemplated for cardioversion/BISI Objective - Vital Signs Vital signs: Vital Signs Temp 97.5 F L 06/21/17 04:00 Pulse 111 H 06/21/17 07:00 Resp 29 H 06/21/17 07:00 BP 116/68 06/21/17 04:00 Pulse Ox 98 06/21/17 07:00 Intake & Output 06/20/17 06/21/17 06/21/17 18:59 06:59 18:59 Intake Total 1050 1340.000 70 Output Total 550 325 Balance 500 1015.000 70 Weight 97.6 kg 98.1 kg Intake: IV 320 120 10 0.9 220 120 10 Magnesium Sulfate-D5w Pmx 100 1 gm In Dextrose/Water 1 100ml.bag @ 100 mls/hr IVPB Q1H SAMIR Rx#: [id number] Intake, IV Titration 250 500.000 Amount Amiodarone 450 mg In 500.000 Dextrose 5% in Water 250 ml @ 1 MG/MIN 33.33 mls/ hr IV .Q7H31M SAMIR Rx#: [id number] Azithromycin 500 mg In 250 Sodium Chloride 0.9% 250 ml @ 125 mls/hr IVPB DAILY SAMIR Rx#:[id number] Oral 480 720 60 Output: Urine 550 325 Other: Voiding Method Urinal Urinal # Voids 0 0 # Bowel Movements 1 1 - Exam Head exam was generally normal. There was no scleral icterus or corneal arcus. Mucous membranes were moist. Neck is supple and there is positive JVDs and there is no goiter or neck masses this point. Lung sounds are diminished and there is some few faint bibasilar cracks in lung bases bilaterally. No wheezes or rhonchi. Heart sounds are irregular and tachycardic still. There is an S3 gallop. No cervical murmurs appreciated.Abdominal exam revealed normal bowel sounds. The abdomen was soft, non-tender, and without masses, organomegaly, or appreciable enlargement of the abdominal aorta. My normal extremities neurologically the patient is intact and the patient is awake and alert. - Labs CBC & Chem 7: 06/21/17 04:43 06/21/17 04:43 Labs: Abnormal Lab Results - Last 24 Hours (Table) 06/20/17 06/21/17 06/21/17 Range/Units 11:09 04:43 04:43 PT 16.7 H (9.0-12.0) sec INR 1.7 H (<1.2) APTT 48.7 H (22.0-30.0) sec Sodium 136 L (137-145) mmol/L Chloride 108 H (98-107) mmol/L Carbon Dioxide 18 L (22-30) mmol/L BUN 24 H (9-20) mg/dL Glucose 100 H (74-99) mg/dL Total Bilirubin 1.5 H (0.2-1.3) mg/dL AST 705 H (17-59) U/L ALT 561 H (21-72) U/L Assessment and Plan Plan: Assessment 1 severe cardiomyopathy with an ejection fraction of less than 20%. Rule out alcoholic cardiomyopathy with secondary pulmonary hypertension. The patient continues to be in acute heart failure. His chest x-ray is consistent with pulmonary edema. He has positive neck veins. Blood pressure is adequate and the patient was given a dose of diuretics with adequate urine output this morning. His cardiac rhythm is in a flutter. 2 A. fib with RVR and currently the patient is on a 2:1 flutter rhythm with some degree of tachycardia with a heart rate in the 120. 3 mild pulmonary edema secondary to CHF, currently the patient on oxygen at 2 L/ m nasal cannula 4 transient hypotension, drug induced in the setting of an underlying cardiomyopathy, recovered and the patient is currently on no pressors. 5 smoker 6 alcoholism, no signs of delirium tremens 7 troponin leak 8 shock liver secondary to cardiomyopathy with history of liver function tests. 9 cough. Plan We'll continue amiodarone loading. We'll continue metoprolol 12.5 mg by mouth twice a day. The patient was diuresed. The patient is being considered for cardioversion. The concern is that he may not be able to handle a BISI to rule out any intracardiac clots prior to the cardioversion. It final decision will be done by Dr. Quintana from cardiology. May consider the use of inotropes such as dobutamine if his cardiac rhythm and blood pressure tolerates. Monitor liver function tests. Keep the patient ICU for now. Continue anticoagulation. Watch for any signs of delirium tremens. We'll continue to follow. Condition is obviously critical.
[2017-06-21] MEDS: DOBUTamine DRIP 500 MG in DEXTROSE/WATER 1 250ML.BAG IV SCH (10:38)
[2017-06-21] MEDS: CHLORPHEN-HYDROcod 8-10mg/5ml 5 ML ORAL.SYRG PO SCH ×2 (13:19→21:43)
[2017-06-21] MEDS: MULTIVITAMINS, THERA 1 EACH TAB PO SCH (13:19)
[2017-06-21] MEDS: THIAMINE 100 MG TAB PO SCH ×2 (13:20→17:48)
--- NOTE | 2017-06-21 13:25 | P.PN ---
Subjective Patient is not doing well today he did he was quite short of breath. Prominent JVD even sitting up. Atrial fibrillation has now changed to atrial flutter heart rate about 110-120 beats a minute on IV amiodarone. Liver enzymes have increased. Yesterday he was hypotensive. Could not tolerate diltiazem drip and could not tolerate switching over to Toprol Severe LV dysfunction, global Regular and heavy alcohol use,, daily Admitted with atrial fibrillation, symptomatic, with RVR Intolerant of IV Cardizem/switch over to beta blockers On examination crackles at the bases bilaterally JVD noted in the sitting up position Blood pressure 113 mmHg systolic Heart sounds are tachycardic Impression Acute and chronic congestive heart failure, severe Severe LV dysfunction, global Regular and heavy alcohol use,, daily Admitted with atrial fibrillation, symptomatic, with RVR Intolerant of IV Cardizem/switch over to beta blockers Plan Hold off on beta blockers Low-dose spironolactone Given 1 dose of IV Lasix He tolerated this Later I started low dose dobutamine infusion Will watch liver functions Switch to by mouth amiodarone after IV amiodarone Patient's condition is critical Objective - Vital Signs Vital signs: Vital Signs Temp 98.0 F 06/21/17 08:00 Pulse 110 H 06/21/17 12:00 Resp 22 06/21/17 12:00 BP 102/75 06/21/17 12:00 Pulse Ox 98 06/21/17 12:00 Intake & Output 06/20/17 06/21/17 06/21/17 18:59 06:59 18:59 Intake Total 1050 1340.000 155 Output Total 500 867 7978 Balance 500 1015.000 -3095 Weight 97.6 kg 98.1 kg 98.1 kg Intake: IV 320 120 45 0.9 220 120 45 Magnesium Sulfate-D5w Pmx 100 1 gm In Dextrose/Water 1 100ml.bag @ 100 mls/hr IVPB Q1H SAMIR Rx#: [id number] Intake, IV Titration 250 500.000 Amount Amiodarone 450 mg In 500.000 Dextrose 5% in Water 250 ml @ 1 MG/MIN 33.33 mls/ hr IV .Q7H31M SAMIR Rx#: [id number] Azithromycin 500 mg In 250 Sodium Chloride 0.9% 250 ml @ 125 mls/hr IVPB DAILY SAMIR Rx#:[id number] Oral 480 720 110 Output: Urine 988 122 4361 Other: Voiding Method Urinal Urinal Urinal # Voids 0 0 # Bowel Movements 1 1 - Labs CBC & Chem 7: 06/21/17 04:43 06/21/17 04:43 Labs: Abnormal Lab Results - Last 24 Hours (Table) 06/21/17 06/21/17 Range/Units 04:43 04:43 PT 16.7 H (9.0-12.0) sec INR 1.7 H (<1.2) Sodium 136 L (137-145) mmol/L Chloride 108 H (98-107) mmol/L Carbon Dioxide 18 L (22-30) mmol/L BUN 24 H (9-20) mg/dL Glucose 100 H (74-99) mg/dL Total Bilirubin 1.5 H (0.2-1.3) mg/dL AST 705 H (17-59) U/L ALT 561 H (21-72) U/L
[2017-06-21] MEDS ORDERED: FUROSEMIDE 10 MG/ML 4 ML VIAL IV ONE (17:00)
[2017-06-21] MEDS: AMIODARONE 200 MG TAB PO SCH ×2 (17:47→21:42)
--- NOTE | 2017-06-21 22:40 | PN ---
PROGRESS NOTE DATE OF SERVICE: 06/21/2017 INTERVAL HISTORY: This is a 56-year-old gentleman admitted to the hospital with shortness of breath, CHF exacerbation. Patient has significant severe dilated cardiomyopathy. Ejection fraction 20%. The patient also had atrial fibrillation, fast ventricular rate. Today the rhythm was converted to atrial flutter with varying block. The patient has dilated cardiomyopathy, possibly related to alcohol. Cardiology is following the patient closely. The patient also had a cardiogenic shock. The patient is unable to tolerate beta blockers. The patient was started on amiodarone IV which is transitioned to p.o. The patient also received 1 dose of Lasix. Dobutamine has been initiated. Patient still being monitored closely in the ICU. PAST MEDICAL HISTORY: History reviewed. REVIEW OF SYSTEM: Cardio system: As mentioned earlier. Respiratory system: Short of breath. GI: No nausea or vomiting. . No dysuria. Nervous system: Diffusely weak. CURRENT MEDICATIONS: Reviewed and include currently: 1. [place] 5 mg q.6h p.r.n. 2. DuoNeb q.i.d. and p.r.n. 4. Eliquis 5 mg p.o. b.i.d. 6. Dobutamine drip. 7. Lasix 40 once a day. 8. Ativan p.r.n. 9. Lopressor. 10.Magnesium. 11.Narcan. 12.Restoril. 13.Vitamin B1. PHYSICAL EXAM: Patient is alert, oriented times three. Pulse is 114 and regular. Blood pressure 120/79, respiratory 26, temperature is normal. Pulse ox 99% on room air. HEENT : Conjunctivae normal. Oral mucosa moist. Neck JVD present. No lymph node enlargement. Cardiovascular: S1, S2 tachycardia. Ejection systolic murmur present. No S3, S4. Respiratory: Breath sounds diminished in the bases. Bilateral scattered rhonchi and crackles. Few. ABDOMEN: Soft, nontender. LEGS: Minimal edema. Central nervous system: Higher functions as mentioned earlier. Moves all four limbs. No focal motor sensory deficits. Lymphatics: No lymph nodes palpable in the neck, axillae or groin. Skin: No ulcer, rash or bleeding. LAB DATA: CBC within normal limits. INR 1.7, sodium 136, AST 705, ALT is 561. ASSESSMENT: 1. Shortness with possible congestive heart failure acute exacerbation with acute on chronic systolic dysfunction ejection fraction 20% with possibly dilated cardiomyopathy secondary to alcohol. 2. Troponin 0.582 indeterminate possibly secondary to congestive heart failure. 3. Atrial fibrillation new onset with fast ventricular rate noted and atrial flutter with fast ventricular rate. 4. Hypotension with cardiogenic shock. 5. History EtOH. 6. History of nicotine dependence. 7. Increased AST ALT possibly hepatitis indicating shocked liver. 8. FULL CODE. RECOMMENDATIONS AND DISCUSSION: In this 56-year-old gentleman who presented with multiple complex medical issues , we will monitor the patient closely. Continue the current treatment. Continue with Dobutamine. We will monitor heart rate closely. Continue with amiodarone. We will repeat labs including liver function tests. Otherwise current medications to be continued. Patient also started on Eliquis for anticoagulation. Small dose of Aldactone also been initiated by Cardiology. The prognosis is guarded because of multiple complex medical issues. I would also add folic acid to the current regimen. Alcohol cessation. [facility] protocol. Further recommendations to follow. PAUL / IJN: [id number] / MTDD
[2017-06-22 04:25] LABS: Basophils # (A) 0.1 k/uL (0-0.2); Basophils % (A) 1 %; CHCM 36.4; Eosinophils # (A) 0.2 k/uL (0-0.7); Eosinophils % (A) 2 %; HCT 44.9 % (39.0-53.0); HDW 2.57; HGB 15.5 gm/dL (13.0-17.5); Luc # (Auto) 0.27; Luc % (Auto) 3; Lymphocytes % (A) 19 %; MCH 31.4 pg (25.0-35.0); MCHC 34.6 g/dL (31.0-37.0); MCV 90.9 fL (80.0-100.0); Mean Platelet Volume 7.4; Monocytes # (A) 0.7 k/uL (0-1.0); Monocytes % (A) 6 %; Neutrophils # (A) 7.7 k/uL (1.3-7.7); Neutrophils % (A) 70 %; RBC 4.94 m/uL (4.30-5.90); RDW 13.1 % (11.5-15.5); WBC 10.9 k/uL (3.8-10.6)
[2017-06-22 04:31] LABS: INR 1.6 (<1.2); Prothrombin Time 15.5 sec (9.0-12.0)
[2017-06-22 04:47] LABS: ALT 421 U/L (21-72); AST 203 U/L (17-59); Alkaline Phosphatase 99 U/L (38-126); Anion Gap 11 mmol/L; Blood Urea Nitrogen 22 mg/dL (9-20); Calcium 9.1 mg/dL (8.4-10.2); Carbon Dioxide 24 mmol/L (22-30); Chloride 102 mmol/L (98-107); Glucose 81 mg/dL (74-99); Magnesium 1.7 mg/dL (1.6-2.3); Non-African American GFR(MDRD) >60 (>60 ml/min/1.73 sqM); Phosphorous 4.7 mg/dL (2.5-4.5); Potassium 3.8 mmol/L (3.5-5.1); Sodium 137 mmol/L (137-145); Total Bilirubin 1.9 mg/dL (0.2-1.3); Total Protein 6.3 g/dL (6.3-8.2)
[2017-06-22] MEDS ORDERED: Potassium Replacement Protocol 1 EACH MISC MISCELLANE PRN (05:28)
[2017-06-22] MEDS: MAGNESIUM SULFATE-D5W PMX 1 GM in DEXTROSE/WATER 1 100ML.BAG IVPB SCH ×2 (05:55→08:13)
[2017-06-22] MEDS ORDERED: POTASSIUM CHLORIDE ER 20 MEQ TAB.ER PO SCH (06:00)
[2017-06-22] MEDS: ALPRAZolam 0.25 MG TAB PO PRN ×2 (06:11→20:44)
[2017-06-22] MEDS: MAGNESIUM OXIDE 400 MG TAB PO SCH (08:13)
[2017-06-22] MEDS: METOPROLOL TARTRATE 12.5 MG TAB PO SCH ×2 (08:14→20:42)
[2017-06-22] MEDS: APIXABAN 5 MG TAB PO SCH ×2 (08:14→20:42)
[2017-06-22] MEDS: AMIODARONE 200 MG TAB PO SCH ×2 (08:14→20:42)
[2017-06-22] MEDS: SPIRONOLACTONE 25 MG TAB PO SCH (08:15)
[2017-06-22] MEDS ORDERED: FUROSEMIDE 10 MG/ML 2 ML VIAL IV ONE ×2 (08:16→20:00)
[2017-06-22] MEDS: IPRATROPIUM-ALBUTEROL 3 ML NEB INHALATION SCH ×4 (08:23→18:55)
--- NOTE | 2017-06-22 08:24 | P.PN ---
Subjective Principal diagnosis: Dilated cardiomyopathy with severe LV dysfunction Atrial flutter History of EtOH abuse Acute onset systolic congestive heart failure Patient is relatively stable this morning. Remains in atrial flutter with a heart rate of around 120s to 150 bpm somewhat hypotensive with systolic pressures in the 90s. He isn't dobutamine and had been on it for more than 48 hours. He received a dose of Lasix yesterday. Currently on anticoagulant all dose of beta kari diuretic amiodarone I'm going to stop the IV dobutamine at this time and digoxin give him a small dose of Lasix. His INR is around 1.6 I reviewed his labs Objective - Vital Signs Vital signs: Vital Signs Temp 98.4 F 06/22/17 08:00 Pulse 136 H 06/22/17 08:00 Resp 27 H 06/22/17 08:00 BP 94/55 06/22/17 08:00 Pulse Ox 97 06/22/17 08:00 Intake & Output 06/21/17 06/22/17 06/22/17 18:59 06:59 18:59 Intake Total 425 1312.077 31.438 Output Total 4750 4100 Balance -4325 -2787.923 31.438 Weight 98.1 kg 92.4 kg Intake: IV 65 215 10 0.9 65 115 10 Magnesium Sulfate-D5w Pmx 100 1 gm In Dextrose/Water 1 100ml.bag @ 100 mls/hr IVPB Q1H SAMIR Rx#: [id number] Intake, IV Titration 137.077 21.438 Amount DOBUTamine DRIP 500 mg In 137.077 21.438 Dextrose/Water 1 250ml. bag @ 2.5 MCG/KG/MIN 7.35 mls/hr IV .Q24H SAMIR Rx#: [id number] Oral 360 960 Output: Urine 4750 4100 Other: Voiding Method Urinal Urinal # Voids 0 0 # Bowel Movements 0 - Exam General: The patient is awake and alert, in no distress, and does not appear acutely ill. Skin: Skin is warm and dry and no rashes or lesions are noted. Eye: Pupils are equal, round and reactive to light, extra-ocular movements are intact; there is normal conjunctiva bilaterally. Ears, nose, mouth and throat: There are moist mucous membranes and no oral lesions. Neck: The neck is supple, there is no tenderness or JVD. Cardiovascular: Irregular systolic murmur at the left lower sternal border Respiratory: Lungs are clear to auscultation, respirations are non-labored, breath sounds are equal. Gastrointestinal: Soft, non-distended, non-tender abdomen without masses or organomegaly noted. There is no rebound or guarding present. Bowel sounds are unremarkable. Back: There is no tenderness to palpation in the midline. There is no obvious deformity. Musculoskeletal: Normal ROM, no tenderness, There is no pedal edema. There is no calf tenderness or swelling. Extremities: No edema. Vascular: Posterior tibial pulses are normal .Dorsalis pedis is palpable. Neurological: CN II-XII intact. There are no obvious motor or sensory deficits. Speech is normal. Psychiatric: Cooperative, appropriate mood & affect, normal judgment. - Labs CBC & Chem 7: 06/22/17 04:07 06/22/17 04:07 Labs: Abnormal Lab Results - Last 24 Hours (Table) 06/22/17 06/22/17 06/22/17 Range/Units 04:07 04:07 04:07 WBC 10.9 H (3.8-10.6) k/uL PT 15.5 H (9.0-12.0) sec INR 1.6 H (<1.2) BUN 22 H (9-20) mg/dL Phosphorus 4.7 H (2.5-4.5) mg/dL Total Bilirubin 1.9 H (0.2-1.3) mg/dL AST 203 H (17-59) U/L ALT 421 H (21-72) U/L Albumin 3.4 L (3.5-5.0) g/dL Assessment and Plan Plan: Atrial flutter with poorly controlled ventricular rate Acute exacerbation of chronic systolic heart failure Dilated cardiomyopathy with severe LV systolic dysfunction I'm going to start the patient on digoxin stop the dobutamine continue the amiodarone beta blockers and the anticoagulant. I will continue the Lasix.
--- NOTE | 2017-06-22 08:34 | XR ---
EXAMINATION TYPE: XR chest 1V portable DATE OF EXAM: 06/22/2017 COMPARISON: 06/21/2017 HISTORY: Shortness of breath FINDINGS: There are bilateral pleural effusions with cardiomegaly and bibasilar infiltrate. There is a diffuse interstitial pattern. Arthropathy of the shoulders. IMPRESSION: 1. Bilateral infiltrate and small effusion correlate for mild central venous congestion and CHF.
[2017-06-22] MEDS: DIGOXIN 250 MCG TAB PO SCH (09:26)
--- NOTE | 2017-06-22 11:37 | P.PN ---
Subjective Principal diagnosis: Atrial fibrillation with RVR, severe cardiomyopathy, congestive heart failure. A 56-year-old male patient who initially presented to [facility] because of increased shortness of breath. The patient was immediately identified to be in nature fibrillation with rapid ventricular response. His symptoms have been going on for about 3-5 days prior to him coming to the hospital. He was getting short of breath and he also complained of orthopnea where he was unable to lay down flat. For that reason, the patient got transferred to [facility]. Echocardiogram was done and I was told that the patient was found to have severe cardiomyopathy with an ejection fraction of less than 20%. At the same time the patient was placed on a Cardizem drip that was brought up to 15 mg an hour. He was still tachycardic. Based on that he was given Lopressor 50 mg by mouth 3 times a day. Following the addition of Lopressor, the patient became hypotensive and diaphoretic. His heart rate dropped down to the mid 60s and he became hypotensive. His systolic blood pressure dropped down to the 70s. At that point he got moved to the intensive care unit. The Cardizem drip was discontinued. He was given a bolus of 500 mL of normal saline. He responded gradually and his blood pressure is currently showing a systolic of above 100. Most recent BP is 104/88. His cardiac rhythm is still atrial fibrillation at the rate is controlled at low 100s. Denies having any chest pain. He shortness of breath is improved. No edema in lower extremities. No history of hyper or hypothyroidism. No history of sleep apnea. Troponins are 0.52 respectively. BNP level was 7370. His blood work showed a component of non-anion gap metabolic acidosis with a bicarb level of 18. His chest x-ray shows cardiomegaly along with pulmonary vessel congestion typical of an underlying CHF. No fever. No chills. No night sweats. He is a chronic alcoholic and he drinks sixpack [employer] Light on a daily basis. On 06/21/2017 I'm seeing this patient in follow-up. The patient's critically ill. The patient is in acute heart failure and he presented with A. fib RVR. This morning he is able to sit up on a chair. He has orthopnea and he gets uncomfortable when he lays down flat. He still has neck veins and his chest x- ray still showing pulmonary edema. He has a nagging dry cough. His cardiac rhythm has slowed down is currently in a flutter at the rate of 113. He was started on amiodarone drip which is running at 1 mg/m. He will be loaded and subsequently maintained on oral amiodarone. He is also on metoprolol 12.5 mg by mouth twice a day. He was given a dose of Lasix this morning and he diuresed more than 700 mL of urine. His echocardiogram showed ejection fraction of less than 20%. Left atrium was moderately dilated. The right ventricle systolic pressure was 49 mmHg. No pericardial effusion. It was moderate degree of concentric left ventricular hypertrophy. The patient has no signs of delirium tremens. His AST and ALTs elevated probably related to shock liver in the setting of an acute heart failure. In terms of anticoagulation, the patient was taken off IV heparin and he was started another course. I discussed this case with Dr. Quintana. He is being contemplated for cardioversion/BISI On 06/22/2017, patient remains in the ICU, feels better, much improved compared to how he felt upon admission. Patient has less shortness of breath, able to lay flat, no chest pain, continues to have some palpitations. Patient is on oral amiodarone, has been responding well to diuretics, off Dobutrex, and still in A. fib with RVR/atrial flutter rate of 120. Patient does have poor LV function ejection fraction is 20%. No signs of delirium so far. Liver enzymes were noted to be elevated. Chest x-ray showed evidence of mild congestive changes. Cardiology staff is considering cardioversion/BISI. Labs were reviewed showed normal CBC. INR is 1.6 electrolytes and renal profile are normal. Liver enzymes are improving AST is down to 203 and his ALT is down to 421. Objective - Vital Signs Vital signs: Vital Signs Temp 98.4 F 06/22/17 08:00 Pulse 121 H 06/22/17 10:00 Resp 24 06/22/17 10:00 BP 106/77 06/22/17 10:00 Pulse Ox 94 L 06/22/17 10:00 Intake & Output 06/21/17 06/22/17 06/22/17 18:59 06:59 18:59 Intake Total 425 1312.077 141.438 Output Total 4750 4100 1500 Balance -9832 -7737.923 -1358.562 Weight 98.1 kg 92.4 kg 92.4 kg Intake: IV 65 215 120 0.9 65 115 20 Magnesium Sulfate-D5w Pmx 100 100 1 gm In Dextrose/Water 1 100ml.bag @ 100 mls/hr IVPB Q1H SAMIR Rx#: [id number] Intake, IV Titration 137.077 21.438 Amount DOBUTamine DRIP 500 mg In 137.077 21.438 Dextrose/Water 1 250ml. bag @ 2.5 MCG/KG/MIN 7.35 mls/hr IV .Q24H SAMIR Rx#: [id number] Oral 360 960 Output: Urine 4750 4100 1500 Other: Voiding Method Urinal Urinal Urinal # Voids 0 0 0 # Bowel Movements 0 0 - Exam Physical Exam: Revealed a 56-year-old white male in no distress. HEENT:[Neck is supple.] [No neck masses.] [No thyromegaly.] [No JVD.] Chest: [Diminished breath sounds and minimal crackles at the bases..] Cardiac Exam: [Tachycardic, irregular, no S3 gallop. Abdomen: [Soft, nontender, no megaly, no rebound, no guarding, normal bowel sounds.] Extremities: [No clubbing, no edema, no cyanosis.] Neurological Exam: [No focal neurologic deficit.] - Labs CBC & Chem 7: 06/22/17 04:07 06/22/17 04:07 Labs: Abnormal Lab Results - Last 24 Hours (Table) 06/22/17 06/22/17 06/22/17 Range/Units 04:07 04:07 04:07 WBC 10.9 H (3.8-10.6) k/uL PT 15.5 H (9.0-12.0) sec INR 1.6 H (<1.2) BUN 22 H (9-20) mg/dL Phosphorus 4.7 H (2.5-4.5) mg/dL Total Bilirubin 1.9 H (0.2-1.3) mg/dL AST 203 H (17-59) U/L ALT 421 H (21-72) U/L Albumin 3.4 L (3.5-5.0) g/dL Assessment and Plan Plan: 1 severe cardiomyopathy with an ejection fraction of less than 20%. Rule out alcoholic cardiomyopathy with secondary pulmonary hypertension. The patient continues to be in acute heart failure. His chest x-ray is consistent with pulmonary edema. He has positive neck veins. Patient remains in atrial flutter. Good response to diuretics over the last 24 hours. Hence we'll continue diuretics as ordered. 2 A. fib with RVR and currently the patient is on a 2:1 flutter rhythm with some degree of tachycardia with a heart rate in the 120. 3 mild pulmonary edema secondary to CHF, currently the patient on oxygen at 2 L/ m nasal cannula. Continue diuretics 4 transient hypotension, drug induced in the setting of an underlying cardiomyopathy, recovered and the patient is currently on no pressors. 5 smoker 6 alcoholism, no signs of delirium tremens 7 troponin leak 8 shock liver secondary to cardiomyopathy with history of liver function tests. Liver enzymes are improving. Recommendation: Continue present meds as listed, continue amiodarone, off Dobutrex, considering cardioversion/BSII. Patient could be potentially transfer to a monitor bed on [facility] if agreeable with cardiology. Continue to follow. Time with Patient: Less than 30
[2017-06-22] MEDS: DOBUTamine DRIP 500 MG in DEXTROSE/WATER 1 250ML.BAG IV SCH (12:15)
[2017-06-22] MEDS: FOLIC ACID 1 MG TAB PO SCH (12:16)
[2017-06-22] MEDS: THIAMINE 100 MG TAB PO SCH ×2 (12:16→18:47)
[2017-06-22] MEDS: CHLORPHEN-HYDROcod 8-10mg/5ml 5 ML ORAL.SYRG PO SCH (12:16)
[2017-06-22] MEDS: MULTIVITAMINS, THERA 1 EACH TAB PO SCH (12:16)
--- NOTE | 2017-06-22 15:20 | P.PN ---
Subjective Date of service 06/22/2017 Progress note being dictated for Dr. Murrieta. Interval history: This is a 56-year-old gentleman admitted with acute CHF exacerbation, severely dilated cardiomyopathy, secondary to alcohol abuse, cardiogenic shock and multiple other medical issues. Diuresed on Lasix. Breathing better today, Chest x-ray reporting bilateral infiltrate and small effusion, mild congestive changes. Dobutrex discontinued this morning .Telemetry Atrial flutter with fast ventricular rate,120's. Digoxin added to med regime in addition to amiodarone. Cardiology discussing potential cardioversion/BISI. LFTs improving, T bili 1.9. INR 1.6. Past medical history reviewed. Review of systems: CONSTITUTIONAL: No fever, no malaise, no fatigue. HEENT: No recent visual problems or hearing problems. Denied any sore throat. CARDIOVASCULAR: No chest pain, orthopnea, PND, no palpitations, no syncope. PULMONARY: No shortness of breath, no cough, no hemoptysis. GASTROINTESTINAL: No diarrhea, no nausea, no vomiting, no abdominal pain. Normoactive bowel sounds. NEUROLOGICAL: No headaches, no weakness, no numbness. HEMATOLOGICAL: Denies any bleeding or petechiae. GENITOURINARY: Denies any burning micturition, frequency, or urgency. MUSCULOSKELETAL/RHEUMATOLOGICAL: Denies any joint pain, swelling, or any muscle pain. ENDOCRINE: Denies any polyuria or polydipsia. PSYCHIATRIC: No anxiety, no depression The rest of the 14 point review of systems is negative Active Medications Generic Name Dose Route Start Last Admin Trade Name Freq PRN Reason Stop Dose Admin Hydrocodone Bitart/Acetaminophen 1 each 06/19/17 15:12 [place] 5-325 PO Q6HR PRN Pain Albuterol/Ipratropium 3 ml 06/19/17 16:00 06/22/17 12:00 Duoneb 0.5 Mg-3 Mg/3 Ml Soln INHALATION Not Given RT-QID SAMIR Alprazolam 0.25 mg 06/19/17 15:12 06/22/17 06:11 Xanax PO 0.25 mg TID PRN Administration Anxiety Amiodarone HCl 200 mg 06/21/17 13:30 06/22/17 08:14 Cordarone PO 200 mg BID SAMIR Administration Apixaban 5 mg 06/20/17 12:00 06/22/17 08:14 Eliquis PO 5 mg BID SAMIR Administration Chlorphenir/Hydrocodone Polistirex 5 ml 06/21/17 10:45 06/22/17 12:16 Tussionex PO 5 ml Q12H SAMIR Administration Digoxin 250 mcg 06/22/17 09:00 06/22/17 09:26 Lanoxin PO 250 mcg DAILY SAMIR Administration Folic Acid 1 mg 06/22/17 12:00 06/22/17 12:16 Folic Acid PO 1 mg DAILY@1200 SAMIR Administration Furosemide 20 mg 06/22/17 20:00 Lasix IV 06/22/17 20:01 ONCE ONE Norepinephrine Bitartrate 4 mg in 250 mls @ 0 mls/hr 06/19/17 19:30 Levophed-0.9% Nacl 4 Mg/250ml Pmx IV .Q0M [facility] Protocol Titrate Dobutamine HCl/Dextrose 500 mg 250 mls @ 7.35 mls/hr 06/21/17 09:59 06/22/17 12:15 / IV Solution IV Not Given .Q24H SAMIR 2.5 MCG/KG/MIN Lorazepam 1 mg 06/19/17 15:07 06/20/17 21:07 Ativan PO 1 mg Q2HR PRN Administration Anxiety Lorazepam 1 mg 06/19/17 15:29 Ativan IV Q2HR PRN CIWA 8 or 9 Lorazepam 1 mg 06/19/17 15:29 Ativan IV Q1HR PRN CIWA 10 to 15 Magnesium Oxide 400 mg 06/19/17 15:30 06/22/17 08:13 Mag-Ox PO 400 mg DAILY SAMIR Administration Metoprolol Tartrate 12.5 mg 06/20/17 21:00 06/22/17 08:14 Lopressor PO Not Given BID [facility] Miscellaneous Information 1 each 06/20/17 01:14 Magnesium Per Protocol MISCELLANE DAILY PRN Per Protocol Protocol Miscellaneous Information 1 each 06/22/17 05:28 Potassium Per Protocol MISCELLANE DAILY PRN Per Protocol Protocol Multivitamins 1 each 06/20/17 12:00 06/22/17 12:16 Theragran PO 1 each DAILY@1200 SAMIR Administration Naloxone HCl 0.2 mg 06/19/17 22:15 Narcan IV Q2M PRN Opioid Reversal Spironolactone 12.5 mg 06/20/17 12:00 06/22/17 08:15 Aldactone PO 12.5 mg DAILY SAMIR Administration Temazepam 15 mg 06/19/17 15:12 Restoril PO HS PRN Insomnia Thiamine HCl 100 mg 06/19/17 17:00 06/22/17 12:16 Vitamin B-1 PO 100 mg BID@1200,1700 SAMIR Administration Objective - Vital Signs Vital signs: Vital Signs Temp 97.7 F 06/22/17 11:00 Pulse 123 H 06/22/17 14:00 Resp 23 06/22/17 14:00 BP 78/67 06/22/17 14:00 Pulse Ox 97 06/22/17 14:00 Intake & Output 06/21/17 06/22/17 06/22/17 18:59 06:59 18:59 Intake Total 425 1312.077 386.438 Output Total 4750 4100 1999 Balance -4325 -2787.923 -1613.562 Weight 98.1 kg 92.4 kg 92.4 kg Intake: IV 65 215 125 0.9 65 115 25 Magnesium Sulfate-D5w Pmx 100 100 1 gm In Dextrose/Water 1 100ml.bag @ 100 mls/hr IVPB Q1H SAMIR Rx#: [id number] Intake, IV Titration 137.077 21.438 Amount DOBUTamine DRIP 500 mg In 137.077 21.438 Dextrose/Water 1 250ml. bag @ 2.5 MCG/KG/MIN 7.35 mls/hr IV .Q24H SAMIR Rx#: [id number] Oral 360 960 240 Output: Urine 4750 4100 1999 Other: Voiding Method Urinal Urinal Urinal # Voids 0 0 0 # Bowel Movements 0 0 - Exam PHYSICAL EXAM: VITAL SIGNS: [As above] GENERAL: Sitting up in bed, no acute distress HEENT: Conjunctivae normal. eyes normal. Oral mucosa moist. No lymph node enlargement NECK: No JVD. No thyroid enlargement. No LNs CARDIOVASCULAR: S1, S2 muffled, tachycardic, positive systolic murmur, trace edema RESPIRATION: Breath sounds diminished in the bases. Fine bibasilar crackles No rhonchi. ABDOMEN: Soft, nontender . No guarding. no masses palpable. No ascites, No hepatosplenomegaly.Bowel sounds heard. LEGS: tracce edema. no swelling PSYCHIATRY: Alert and oriented 3, mood and affect normal. NERVOUS SYSTEM: Cranial N 2-12 grossly normal. Moves all 4 limbs. Diffuse weakness No focal deficits. No sensory deficit. Skin: no ulcer no rash Lymphatic system. No LN neck axilla or groin. - Labs CBC & Chem 7: 06/22/17 04:07 06/22/17 04:07 Labs: Abnormal Lab Results - Last 24 Hours (Table) 06/22/17 06/22/17 06/22/17 Range/Units 04:07 04:07 04:07 WBC 10.9 H (3.8-10.6) k/uL PT 15.5 H (9.0-12.0) sec INR 1.6 H (<1.2) BUN 22 H (9-20) mg/dL Phosphorus 4.7 H (2.5-4.5) mg/dL Total Bilirubin 1.9 H (0.2-1.3) mg/dL AST 203 H (17-59) U/L ALT 421 H (21-72) U/L Albumin 3.4 L (3.5-5.0) g/dL Assessment and Plan Plan: 1. Acute on chronic CHF systolic dysfunction, 20% with possible dilated cardiomyopathy secondary to alcohol. 2. [ Troponin 0.582, indeterminate, possibly secondary to CHF]. 3. [ Atrial fibrillation, new onset with fast ventricular rate, currently atrial flutter with fast ventricular rate]. 4. Hypotension with cardiogenic shock[]. 5. EtOH abuse]. 6. nicotine dependence]. 7. [ Elevated LFTs possibly hepatitis indicating shock liver, improving. Plan: Continue current medication regime ,Lasix, monitoring and symptomatic treatment. Continue on CIWA protocol. Scheduled for transfer out of ICU later this afternoon as Dobutrex has been off since this morning, as per bin filler. Antiarrhythmics as per cardiology with the addition of digoxin in addition to amiodarone. Potential Cardioversion/BISI. Maintain anticoagulation with Eliquis. Prognosis guarded given multiple complex medical issues. The impression and plan of care has been dictated as directed. : I performed a H&P examination of this patient and discussed the same with the dictator. I agree with the dictator's note. Any additional findings/opinions/ etc. will be noted.
[2017-06-23] MEDS: CHLORPHEN-HYDROcod 8-10mg/5ml 5 ML ORAL.SYRG PO SCH ×3 (03:15→11:09)
[2017-06-23 04:32] LABS: Basophils # (A) 0.1 k/uL (0-0.2); Basophils % (A) 1 %; CHCM 36.2; Eosinophils # (A) 0.3 k/uL (0-0.7); Eosinophils % (A) 3 %; HCT 48.1 % (39.0-53.0); HDW 2.66; HGB 16.6 gm/dL (13.0-17.5); Luc # (Auto) 0.42; Luc % (Auto) 4; Lymphocytes # (A) 2.2 k/uL (1.0-4.8); Lymphocytes % (A) 21 %; MCH 31.6 pg (25.0-35.0); MCHC 34.5 g/dL (31.0-37.0); MCV 91.5 fL (80.0-100.0); Mean Platelet Volume 7.3; Monocytes % (A) 9 %; Neutrophils # (A) 6.6 k/uL (1.3-7.7); Neutrophils % (A) 63 %; RBC 5.26 m/uL (4.30-5.90); RDW 13.4 % (11.5-15.5); WBC 10.6 k/uL (3.8-10.6); WBC (Perox) 10.71
[2017-06-23 04:37] LABS: INR 1.4 (<1.2); Prothrombin Time 13.3 sec (9.0-12.0)
[2017-06-23 04:50] LABS: ALT 412 U/L (21-72); AST 187 U/L (17-59); Alkaline Phosphatase 96 U/L (38-126); Anion Gap 11 mmol/L; Blood Urea Nitrogen 20 mg/dL (9-20); Calcium 9.1 mg/dL (8.4-10.2); Carbon Dioxide 27 mmol/L (22-30); Chloride 101 mmol/L (98-107); Glucose 86 mg/dL (74-99); Magnesium 1.9 mg/dL (1.6-2.3); Non-African American GFR(MDRD) >60 (>60 ml/min/1.73 sqM); Phosphorous 5.5 mg/dL (2.5-4.5); Sodium 139 mmol/L (137-145); Total Bilirubin 1.4 mg/dL (0.2-1.3); Total Protein 6.7 g/dL (6.3-8.2)
[2017-06-23] MEDS: IPRATROPIUM-ALBUTEROL 3 ML NEB INHALATION SCH ×4 (07:16→20:21)
[2017-06-23] MEDS: MAGNESIUM SULFATE-D5W PMX 1 GM in DEXTROSE/WATER 1 100ML.BAG IVPB SCH ×2 (07:35→08:48)
[2017-06-23] MEDS: MAGNESIUM OXIDE 400 MG TAB PO SCH (07:35)
[2017-06-23] MEDS: METOPROLOL TARTRATE 12.5 MG TAB PO SCH ×4 (07:36→22:56)
[2017-06-23] MEDS: APIXABAN 5 MG TAB PO SCH ×2 (07:36→21:13)
[2017-06-23] MEDS: SPIRONOLACTONE 25 MG TAB PO SCH (07:36)
[2017-06-23] MEDS: DIGOXIN 250 MCG TAB PO SCH (07:36)
[2017-06-23] MEDS: AMIODARONE 200 MG TAB PO SCH (07:36)
[2017-06-23] MEDS: DOBUTamine DRIP 500 MG in DEXTROSE/WATER 1 250ML.BAG IV SCH (07:37)
[2017-06-23] MEDS ORDERED: FUROSEMIDE 10 MG/ML 4 ML VIAL IV STA (09:18)
--- NOTE | 2017-06-23 10:17 | XR ---
EXAMINATION TYPE: XR chest 1V portable DATE OF EXAM: 06/23/2017 COMPARISON: 06/22/2017 HISTORY: Shortness of breath TECHNIQUE: Single frontal view of the chest is obtained. FINDINGS: Left-sided consolidation and pleural effusion is slightly progressed. Right lung clear. No pneumothorax or overt failure. Heart prominent but stable. Arthropathy shoulders. IMPRESSION: 1. Mild progression of left lower lobe infiltrate and small effusion. 2. Interstitium is improved correlate for resolving venous congestion.
--- NOTE | 2017-06-23 10:22 | P.PN ---
Subjective Progress note being dictated for Dr. Murrieta. 06/22/17 Interval history: This is a 56-year-old gentleman admitted with acute CHF exacerbation, severely dilated cardiomyopathy, secondary to alcohol abuse, cardiogenic shock and multiple other medical issues. Diuresed on Lasix. Breathing better today, Chest x-ray reporting bilateral infiltrate and small effusion, mild congestive changes. Dobutrex discontinued this morning .Telemetry Atrial flutter with fast ventricular rate,120's. Digoxin added to med regime in addition to amiodarone. Cardiology discussing potential cardioversion/BISI. LFTs improving, T bili 1.9. INR 1.6. 06/23/17: Remains in atrial flutter ranging from 100s to 140s, denies chest pain, or palpitations. Cardiology discussing possible cardioversion. Denies increasing shortness of breath, able to lay flat during sleep. LFTs and TB bili continue to improve. INR 1.4. Diuresed yesterday with 24-hour I&O reflecting a negative fluid balance. Chest x-ray suggestive of increasing left pleural effusion. Past medical history reviewed. Review of systems: CONSTITUTIONAL: Feeling more rested, slept throughout the day yesterday; states prior to admission had not been able to sleep for days. HEENT: No recent visual problems or hearing problems. Denied any sore throat. CARDIOVASCULAR: No chest pain, orthopnea, PND, no palpitations, no syncope. PULMONARY: No shortness of breath, no cough, no hemoptysis. Able to lay flat without increasing shortness of breath GASTROINTESTINAL: No diarrhea, no nausea, no vomiting, no abdominal pain. Normoactive bowel sounds. NEUROLOGICAL: No headaches, no weakness, no numbness. HEMATOLOGICAL: Denies any bleeding or petechiae. GENITOURINARY: Denies any burning micturition, frequency, or urgency. MUSCULOSKELETAL/RHEUMATOLOGICAL: Denies any joint pain, swelling, or any muscle pain. ENDOCRINE: Denies any polyuria or polydipsia. PSYCHIATRIC: No anxiety, no depression The rest of the 14 point review of systems is negative Active Medications Hydrocodone Bitart/Acetaminophen ([place] 5-325) 1 each PO Q6HR PRN PRN Reason: Pain Albuterol/Ipratropium (Duoneb 0.5 Mg-3 Mg/3 Ml Soln) 3 ml INHALATION RT-QID [facility] Last Admin: 06/23/17 07:16 Dose: Not Given Alprazolam (Xanax) 0.25 mg PO TID PRN PRN Reason: Anxiety Last Admin: 06/22/17 20:44 Dose: 0.25 mg Amiodarone HCl (Cordarone) 200 mg PO BID [facility] Last Admin: 06/23/17 07:36 Dose: 200 mg Apixaban (Eliquis) 5 mg PO BID [facility] Last Admin: 06/23/17 07:36 Dose: 5 mg Chlorphenir/Hydrocodone Polistirex (Tussionex) 5 ml PO Q12H [facility] Last Admin: 06/23/17 04:34 Dose: 5 ml Digoxin (Lanoxin) 250 mcg PO DAILY [facility] Last Admin: 06/23/17 07:36 Dose: 250 mcg Folic Acid (Folic Acid) 1 mg PO DAILY@1200 [facility] Last Admin: 06/22/17 12:16 Dose: 1 mg Norepinephrine Bitartrate (Levophed-0.9% Nacl 4 Mg/250ml Pmx) 4 mg in 250 mls @ 0 mls/hr IV .Q0M [facility]; Titrate PRN Reason: Protocol Dobutamine HCl/Dextrose 500 mg (/ IV Solution) 250 mls @ 7.35 mls/hr IV .Q24H [facility] PRN Reason: 2.5 MCG/KG/MIN Last Admin: 06/23/17 07:37 Dose: Not Given Lorazepam (Ativan) 1 mg PO Q2HR PRN PRN Reason: Anxiety Last Admin: 06/20/17 21:07 Dose: 1 mg Lorazepam (Ativan) 1 mg IV Q2HR PRN PRN Reason: CIWA 8 or 9 Lorazepam (Ativan) 1 mg IV Q1HR PRN PRN Reason: CIWA 10 to 15 Magnesium Oxide (Mag-Ox) 400 mg PO DAILY [facility] Last Admin: 06/23/17 07:35 Dose: 400 mg Metoprolol Tartrate (Lopressor) 12.5 mg PO BID [facility] Last Admin: 06/23/17 07:36 Dose: Not Given Miscellaneous Information (Magnesium Per Protocol) 1 each MISCELLANE DAILY PRN ; Protocol PRN Reason: Per Protocol Miscellaneous Information (Potassium Per Protocol) 1 each MISCELLANE DAILY PRN ; Protocol PRN Reason: Per Protocol Multivitamins (Theragran) 1 each PO DAILY@1200 [facility] Last Admin: 06/22/17 12:16 Dose: 1 each Naloxone HCl (Narcan) 0.2 mg IV Q2M PRN PRN Reason: Opioid Reversal Spironolactone (Aldactone) 12.5 mg PO DAILY [facility] Last Admin: 06/23/17 07:36 Dose: 12.5 mg Temazepam (Restoril) 15 mg PO HS PRN PRN Reason: Insomnia Thiamine HCl (Vitamin B-1) 100 mg PO BID@1200,1700 [facility] Last Admin: 06/22/17 18:47 Dose: 100 mg Objective - Vital Signs Vital signs: Vital Signs Temp 97.4 F L 06/23/17 08:00 Pulse 115 H 06/23/17 09:00 Resp 28 H 06/23/17 09:00 BP 104/73 06/23/17 09:00 Pulse Ox 95 06/23/17 09:00 Intake & Output 06/22/17 06/23/17 06/23/17 18:59 06:59 18:59 Intake Total 723.212 3700 290 Output Total 2940 950 150 Balance -2358.562 265 140 Weight 92.4 kg 88.9 kg 88.9 kg Intake: IV 140 135 30 0.9 40 35 30 Magnesium Sulfate-D5w Pmx 100 100 1 gm In Dextrose/Water 1 100ml.bag @ 100 mls/hr IVPB Q1H [facility] Rx#: [id number] Intake, IV Titration 21.438 200 Amount DOBUTamine DRIP 500 mg In 21.438 Dextrose/Water 1 250ml. bag @ 2.5 MCG/KG/MIN 7.35 mls/hr IV .Q24H [facility] Rx#: [id number] Magnesium Sulfate-D5w Pmx 200 1 gm In Dextrose/Water 1 100ml.bag @ 100 mls/hr IVPB Q1H [facility] Rx#: [id number] Oral 420 1080 60 Output: Urine 2940 950 150 Other: Voiding Method Urinal Urinal Urinal # Voids 0 1 0 # Bowel Movements 0 0 0 - Exam PHYSICAL EXAM: VITAL SIGNS: [As above] GENERAL: Sitting up in bed, no acute distress HEENT: Conjunctivae normal. eyes normal. Oral mucosa moist. No lymph node enlargement NECK: No JVD. No thyroid enlargement. No LNs CARDIOVASCULAR: S1, S2 muffled, tachycardic, positive systolic murmur, trace edema RESPIRATION: Breath sounds diminished in the bases. Fine bibasilar crackles No rhonchi. ABDOMEN: Soft, nontender . No guarding. no masses palpable. No ascites, No hepatosplenomegaly.Bowel sounds heard. LEGS: tracce edema. no swelling PSYCHIATRY: Alert and oriented 3, mood and affect normal. NERVOUS SYSTEM: Cranial N 2-12 grossly normal. Moves all 4 limbs. Diffuse weakness No focal deficits. No sensory deficit. Skin: no ulcer no rash Lymphatic system. No LN neck axilla or groin. - Labs CBC & Chem 7: 06/23/17 04:05 06/23/17 04:05 Labs: Abnormal Lab Results - Last 24 Hours (Table) 06/23/17 06/23/17 Range/Units 04:05 04:05 PT 13.3 H (9.0-12.0) sec INR 1.4 H (<1.2) Phosphorus 5.5 H (2.5-4.5) mg/dL Total Bilirubin 1.4 H (0.2-1.3) mg/dL AST 187 H (17-59) U/L ALT 412 H (21-72) U/L Assessment and Plan Plan: 1. Acute on chronic CHF systolic dysfunction, 20% with possible dilated cardiomyopathy secondary to alcohol. 2. [ Troponin 0.582, indeterminate, possibly secondary to CHF]. 3. [ Atrial fibrillation, new onset with fast ventricular rate, currently atrial flutter with fast ventricular rate]. 4. Hypotension with cardiogenic shock[]. 5. EtOH abuse]. 6. nicotine dependence]. 7. [ Elevated LFTs possibly hepatitis indicating shock liver, improving. 8. Left pleural effusion per chest x-ray Plan: Continue current medication regime ,CIWA protocol, Eliquis,monitoring and symptomatic treatment. Further diuresing as per environmental services technician .Antiarrhythmics as per cardiology.potential Cardioversion/BISI. Close monitoring of LFTs , coags , with repeat labs ordered for a.m. Prognosis guarded given multiple complex medical issues. The impression and plan of care has been dictated as directed. : I performed a H&P examination of this patient and discussed the same with the dictator. I agree with the dictator's note. Any additional findings/opinions/ etc. will be noted.
[2017-06-23] MEDS: THIAMINE 100 MG TAB PO SCH ×2 (11:10→17:39)
[2017-06-23] MEDS: MULTIVITAMINS, THERA 1 EACH TAB PO SCH (11:10)
[2017-06-23] MEDS: FOLIC ACID 1 MG TAB PO SCH (11:10)
--- NOTE | 2017-06-23 11:27 | P.PN ---
Subjective Patient remains in atrial flutter with a heart rate of around 100 2240 bpm he is more stable this morning. Hemodynamically stable. Does not seem to be any respiratory distress. Blood pressure is well maintained. He is an amiodarone 200 twice a day and eliquis 5 mg twice a day. We'll keep the patient denies U for now given the heart rate. Patient is on digoxin and metoprolol. Stage III might have to cardiovert the patient. Objective - Vital Signs Vital signs: Vital Signs Temp 97.6 F 06/23/17 11:00 Pulse 145 H 06/23/17 11:00 Resp 15 06/23/17 11:00 BP 105/72 06/23/17 11:00 Pulse Ox 95 06/23/17 11:00 Intake & Output 06/22/17 06/23/17 06/23/17 18:59 06:59 18:59 Intake Total 238.390 2732 330 Output Total 2940 950 1150 Balance -2358.562 265 -820 Weight 92.4 kg 88.9 kg 88.9 kg Intake: IV 140 135 70 0.9 40 35 70 Magnesium Sulfate-D5w Pmx 100 100 1 gm In Dextrose/Water 1 100ml.bag @ 100 mls/hr IVPB Q1H [facility] Rx#: [id number] Intake, IV Titration 21.438 200 Amount DOBUTamine DRIP 500 mg In 21.438 Dextrose/Water 1 250ml. bag @ 2.5 MCG/KG/MIN 7.35 mls/hr IV .Q24H [facility] Rx#: [id number] Magnesium Sulfate-D5w Pmx 200 1 gm In Dextrose/Water 1 100ml.bag @ 100 mls/hr IVPB Q1H [facility] Rx#: [id number] Oral 420 1080 60 Output: Urine 2940 950 1150 Other: Voiding Method Urinal Urinal Urinal # Voids 0 1 0 # Bowel Movements 0 0 0 - Exam Patient is comfortable at rest heart rate is elevated blood pressure is 110/70 respirators 18 chest exam reveals diminished air entry at the bases heart exam reveals first and second heart sounds are regular rhythm abdomen is soft exam extremities did not reveal any edema per for pulses are felt - Labs CBC & Chem 7: 06/23/17 04:05 06/23/17 04:05 Labs: Abnormal Lab Results - Last 24 Hours (Table) 06/23/17 06/23/17 Range/Units 04:05 04:05 PT 13.3 H (9.0-12.0) sec INR 1.4 H (<1.2) Phosphorus 5.5 H (2.5-4.5) mg/dL Total Bilirubin 1.4 H (0.2-1.3) mg/dL AST 187 H (17-59) U/L ALT 412 H (21-72) U/L Assessment and Plan Plan: Atrial flutter with poorly controlled ventricular rate Hypotension Will continue the patient on current medications including the anticoagulant will discuss with Dr. Quintana his primary inorganic chemist about cardioversion or atrial flutter ablation
--- NOTE | 2017-06-23 11:52 | P.PN ---
Subjective Principal diagnosis: Atrial fibrillation with RVR, severe cardiomyopathy, congestive heart failure. A 56-year-old male patient who initially presented to [facility] because of increased shortness of breath. The patient was immediately identified to be in nature fibrillation with rapid ventricular response. His symptoms have been going on for about 3-5 days prior to him coming to the hospital. He was getting short of breath and he also complained of orthopnea where he was unable to lay down flat. For that reason, the patient got transferred to [facility]. Echocardiogram was done and I was told that the patient was found to have severe cardiomyopathy with an ejection fraction of less than 20%. At the same time the patient was placed on a Cardizem drip that was brought up to 15 mg an hour. He was still tachycardic. Based on that he was given Lopressor 50 mg by mouth 3 times a day. Following the addition of Lopressor, the patient became hypotensive and diaphoretic. His heart rate dropped down to the mid 60s and he became hypotensive. His systolic blood pressure dropped down to the 70s. At that point he got moved to the intensive care unit. The Cardizem drip was discontinued. He was given a bolus of 500 mL of normal saline. He responded gradually and his blood pressure is currently showing a systolic of above 100. Most recent BP is 104/88. His cardiac rhythm is still atrial fibrillation at the rate is controlled at low 100s. Denies having any chest pain. He shortness of breath is improved. No edema in lower extremities. No history of hyper or hypothyroidism. No history of sleep apnea. Troponins are 0.52 respectively. BNP level was 7370. His blood work showed a component of non-anion gap metabolic acidosis with a bicarb level of 18. His chest x-ray shows cardiomegaly along with pulmonary vessel congestion typical of an underlying CHF. No fever. No chills. No night sweats. He is a chronic alcoholic and he drinks sixpack [place] on a daily basis. On 06/21/2017 I'm seeing this patient in follow-up. The patient's critically ill. The patient is in acute heart failure and he presented with A. fib RVR. This morning he is able to sit up on a chair. He has orthopnea and he gets uncomfortable when he lays down flat. He still has neck veins and his chest x- ray still showing pulmonary edema. He has a nagging dry cough. His cardiac rhythm has slowed down is currently in a flutter at the rate of 113. He was started on amiodarone drip which is running at 1 mg/m. He will be loaded and subsequently maintained on oral amiodarone. He is also on metoprolol 12.5 mg by mouth twice a day. He was given a dose of Lasix this morning and he diuresed more than 700 mL of urine. His echocardiogram showed ejection fraction of less than 20%. Left atrium was moderately dilated. The right ventricle systolic pressure was 49 mmHg. No pericardial effusion. It was moderate degree of concentric left ventricular hypertrophy. The patient has no signs of delirium tremens. His AST and ALTs elevated probably related to shock liver in the setting of an acute heart failure. In terms of anticoagulation, the patient was taken off IV heparin and he was started another course. I discussed this case with Dr. Quintana. He is being contemplated for cardioversion/BISI On 06/22/2017, patient remains in the ICU, feels better, much improved compared to how he felt upon admission. Patient has less shortness of breath, able to lay flat, no chest pain, continues to have some palpitations. Patient is on oral amiodarone, has been responding well to diuretics, off Dobutrex, and still in A. fib with RVR/atrial flutter rate of 120. Patient does have poor LV function ejection fraction is 20%. No signs of delirium so far. Liver enzymes were noted to be elevated. Chest x-ray showed evidence of mild congestive changes. Cardiology staff is considering cardioversion/BISI. Labs were reviewed showed normal CBC. INR is 1.6 electrolytes and renal profile are normal. Liver enzymes are improving AST is down to 203 and his ALT is down to 421. On 06/23/2017, patient is doing quite well. Remains in A. fib/atrial flutter, rate is in the range of 110. Patient is yet to be cardioverted, remains on multiple meds including amiodarone, relatively asymptomatic, chest x-ray however is showing a new left pleural effusion and resolving to some extent the venous congestion. CBC is relatively normal basic metabolic profile is normal renal profile is normal. Objective - Vital Signs Vital signs: Vital Signs Temp 97.6 F 06/23/17 11:00 Pulse 145 H 06/23/17 11:00 Resp 15 06/23/17 11:41 BP 105/72 06/23/17 11:00 Pulse Ox 95 06/23/17 11:00 Intake & Output 06/22/17 06/23/17 06/23/17 18:59 06:59 18:59 Intake Total 602.542 1459 330 Output Total 2940 950 1700 Balance -2358.562 265 -1370 Weight 92.4 kg 88.9 kg 88.9 kg Intake: IV 140 135 70 0.9 40 35 70 Magnesium Sulfate-D5w Pmx 100 100 1 gm In Dextrose/Water 1 100ml.bag @ 100 mls/hr IVPB Q1H [facility] Rx#: [id number] Intake, IV Titration 21.438 200 Amount DOBUTamine DRIP 500 mg In 21.438 Dextrose/Water 1 250ml. bag @ 2.5 MCG/KG/MIN 7.35 mls/hr IV .Q24H [facility] Rx#: [id number] Magnesium Sulfate-D5w Pmx 200 1 gm In Dextrose/Water 1 100ml.bag @ 100 mls/hr IVPB Q1H [facility] Rx#: [id number] Oral 420 1080 60 Output: Urine 2940 950 1700 Other: Voiding Method Urinal Urinal Urinal # Voids 0 1 0 # Bowel Movements 0 0 0 - Exam Physical Exam: Revealed a 56-year-old white male in no distress. HEENT:[Neck is supple.] [No neck masses.] [No thyromegaly.] [No JVD.] Chest: [Diminished breath sounds and minimal crackles at the bases..] Cardiac Exam: [Tachycardic, irregular, no S3 gallop. Abdomen: [Soft, nontender, no megaly, no rebound, no guarding, normal bowel sounds.] Extremities: [No clubbing, no edema, no cyanosis.] Neurological Exam: [No focal neurologic deficit.] - Labs CBC & Chem 7: 06/23/17 04:05 06/23/17 04:05 Labs: Abnormal Lab Results - Last 24 Hours (Table) 06/23/17 06/23/17 Range/Units 04:05 04:05 PT 13.3 H (9.0-12.0) sec INR 1.4 H (<1.2) Phosphorus 5.5 H (2.5-4.5) mg/dL Total Bilirubin 1.4 H (0.2-1.3) mg/dL AST 187 H (17-59) U/L ALT 412 H (21-72) U/L Assessment and Plan Plan: 1 severe cardiomyopathy with an ejection fraction of less than 20%. Rule out alcoholic cardiomyopathy with secondary pulmonary hypertension. The patient continues to be in acute heart failure. His chest x-ray is consistent mild congestive heart failure and left pleural effusion . Patient remains in atrial flutter. Good response to diuretics over the last 24 hours. Lasix was restarted because of his left pleural effusion and mild congestive changes does on the chest x-ray. 2 A. fib with RVR and currently the patient is on a 2:1 flutter rhythm with some degree of tachycardia with a heart rate in the 120. 3 mild pulmonary edema secondary to CHF, currently the patient on oxygen at 2 L/ m nasal cannula. Continue diuretics 4 transient hypotension, drug induced in the setting of an underlying cardiomyopathy, recovered and the patient is currently on no pressors. 5 smoker 6 alcoholism, no signs of delirium tremens 7 troponin leak 8 shock liver secondary to cardiomyopathy with history of liver function tests. Liver enzymes are improving. Recommendation: Continue present meds as listed, continue amiodarone, off Dobutrex, considering cardioversion/BISI. Patient could be potentially transfer to a monitor bed on selective if agreeable with cardiology. Continue to follow. Time with Patient: Less than 30
[2017-06-23] MEDS ORDERED: DEXTROSE 5% IN WATER 250 ML with AMIODARONE 300 MG IV ONE (13:11)
--- NOTE | 2017-06-23 13:17 | CDI ---
In responding to this query, please exercise your independent professional judgment. The [facility] Coding Staff and Clinical Documentation Specialists appreciate your assistance in clarifying documentation, maintaining compliance with coding guidelines, accurately documenting patients condition and capturing severity of illness. The fact that a question is asked does not imply that any particular answer is desired or expected. Communication forms are a method of clarifying documentation and are not made part of the Legal Health Record. Thank you in advance for your clarification. Last Revision, August 2015 Juan C Tellez [address] [place] [address] Documentation Clarification Form Date: 06/23/2017 1:08:00 PM From: Hazel Virk RN, CCDS Admit Date: 06/19/2017 1:03:00 PM Patient Name: Chace Jones Visit Number: [id number] Dr. Grady Ramos Atrial fibrillation is documented in the H&P, Cardiology Consult and Progress Notes. 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 Chronic/Permanent Paroxysmal Persistent Other, please specify Unable to determine Please document in your progress notes and discharge summary in order to capture severity of illness and risk of mortality. Include clinical findings that support your diagnosis. FYI: Press F11 to launch patient chart Place X here if this finding has no clinical significance, is not applicable or if you are not able to provide any additional documentation. IOND
--- NOTE | 2017-06-23 13:22 | CDI ---
In responding to this query, please exercise your independent professional judgment. The [facility] Coding Staff and Clinical Documentation Specialists appreciate your assistance in clarifying documentation, maintaining compliance with coding guidelines, accurately documenting patients condition and capturing severity of illness. The fact that a question is asked does not imply that any particular answer is desired or expected. Communication forms are a method of clarifying documentation and are not made part of the Legal Health Record. Thank you in advance for your clarification. Last Revision, August 2015 Juan C Tellez [address] [facility] [facility] [place] [address] Documentation Clarification Form Date: 06/23/2017 1:18:00 PM From: Hazel Virk RN, CCDS Admit Date: 06/19/2017 1:03:00 PM Patient Name: Chace Jones Visit Number: [id number] Dr. Grady Ramos Atrial Flutter is documented in the Cardiology Progress notes and requires further specificity . History/Risk factors: Dilated cardiomyopathy, ETOH, Cardiogenic shock and shock liver this admission Clinical Indicators: EKG/telemetry: afib Treatment: Amio 200mg PO BID s/p bolus and Gtt Eliquis 5mg PO BIDConsults: In your professional opinion, can you please clarify the type of atrial flutter if known? Typical/Type I Atypical/Type II Other, please specify Unable to determine Please document in your progress notes and discharge summary in order to capture severity of illness and risk of mortality. Include clinical findings that support your diagnosis. FYI: Press F11 to launch patient chart Place X here if this finding has no clinical significance, is not applicable or if you are not able to provide any additional documentation. MTDD
[2017-06-23] MEDS: ASPIRIN 81 MG CHEW PO SCH (13:25)
--- NOTE | 2017-06-23 13:51 | P.PN ---
Subjective Patient interviewed and examined did he does have bilateral crackles today. Yesterday his lungs were clear. His heart rate is now 140 246 beats a minute and he remains in atrial flutter. He is on oral amiodarone Blood pressure 110 systolic. He states he is still able to lie flat in bed I feel yesterday he was actually doing better and did he does not have an obvious JVD today I had a detailed discussion with him his nurse and I called his and spoke to her. Medical treatment for atrial flutter, which includes electrical cardioversion, in this situation carries a very high recurrence rate The patient will most likely be back in atrial flutter with worsening heart failure I would recommend definitive treatment with atrial flutter as long as he is able to tolerate anesthesia The biggest risk here is anesthesia rather than the actual procedure Yesterday his rates were 110-120 beats a minute but today his rates have climbed once again to 142-146 beats a minute Plan IV amiodarone drip once again for rate control He received 1 dose of IV Lasix this morning and I will repeat that again at about 6 PM Low-dose by mouth Lopressor for this is unlikely to result in rate control in the setting of atrial flutter with underlying severe cardiomyopathy IV Lasix drip tomorrow at 9 AM 10 mg an hour as long as his blood pressure is above 100 mmHg we did discuss with dizziness Atrial flutter ablation tomorrow/ Patient understands that he may need general anesthesia In the after midnight except medications and ELIQUIS must NOT be held either tonight or tomorrow morning Discussed with Dr. Braga with the [facility], [place] physician at this time Objective - Vital Signs Vital signs: Vital Signs Temp 97.6 F 06/23/17 11:00 Pulse 145 H 06/23/17 12:00 Resp 26 H 06/23/17 12:00 BP 104/91 06/23/17 12:00 Pulse Ox 97 06/23/17 12:00 Intake & Output 06/22/17 06/23/17 06/23/17 18:59 06:59 18:59 Intake Total 253.207 5697 350 Output Total 2940 950 2200 Balance -2358.562 265 -1850 Weight 92.4 kg 88.9 kg 88.9 kg Intake: IV 140 135 90 0.9 40 35 90 Magnesium Sulfate-D5w Pmx 100 100 1 gm In Dextrose/Water 1 100ml.bag @ 100 mls/hr IVPB Q1H [facility] Rx#: [id number] Intake, IV Titration 21.438 200 Amount DOBUTamine DRIP 500 mg In 21.438 Dextrose/Water 1 250ml. bag @ 2.5 MCG/KG/MIN 7.35 mls/hr IV .Q24H [facility] Rx#: [id number] Magnesium Sulfate-D5w Pmx 200 1 gm In Dextrose/Water 1 100ml.bag @ 100 mls/hr IVPB Q1H [facility] Rx#: [id number] Oral 420 1080 60 Output: Urine 2940 950 2200 Other: Voiding Method Urinal Urinal Urinal # Voids 0 1 0 # Bowel Movements 0 0 0 - Labs CBC & Chem 7: 06/23/17 04:05 06/23/17 04:05 Labs: Abnormal Lab Results - Last 24 Hours (Table) 06/23/17 06/23/17 Range/Units 04:05 04:05 PT 13.3 H (9.0-12.0) sec INR 1.4 H (<1.2) Phosphorus 5.5 H (2.5-4.5) mg/dL Total Bilirubin 1.4 H (0.2-1.3) mg/dL AST 187 H (17-59) U/L ALT 412 H (21-72) U/L
[2017-06-23] MEDS: SODIUM CHLORIDE 0.9% 1,000 ML IV SCH (14:00)
[2017-06-23] MEDS: AMIODARONE 450 MG in DEXTROSE 5% IN WATER 250 ML IV SCH ×4 (16:00→23:26)
[2017-06-23] MEDS ORDERED: HYDROmorphone 1 MG/ML 1 ML SYRINGE IVP STA (16:32)
[2017-06-23] MEDS ORDERED: FUROSEMIDE 10 MG/ML 4 ML VIAL IV ONE (18:00)
[2017-06-23] MEDS: ALPRAZolam 0.25 MG TAB PO PRN (21:13)
[2017-06-24 05:07] LABS: Basophils # (A) 0.1 k/uL (0-0.2); Basophils % (A) 1 %; CH 31.8; CHCM 35.6; Eosinophils # (A) 0.2 k/uL (0-0.7); Eosinophils % (A) 2 %; HCT 49.2 % (39.0-53.0); HDW 2.73; HGB 17.4 gm/dL (13.0-17.5); Luc % (Auto) 4; Lymphocytes # (A) 2.1 k/uL (1.0-4.8); Lymphocytes % (A) 22 %; MCH 31.8 pg (25.0-35.0); MCHC 35.4 g/dL (31.0-37.0); MCV 89.7 fL (80.0-100.0); Mean Platelet Volume 6.7; Monocytes # (A) 0.7 k/uL (0-1.0); Monocytes % (A) 7 %; Neutrophils # (A) 6.2 k/uL (1.3-7.7); Neutrophils % (A) 64 %; RBC 5.48 m/uL (4.30-5.90); RDW 12.5 % (11.5-15.5); WBC 9.7 k/uL (3.8-10.6); WBC (Perox) 9.94
[2017-06-24 05:21] LABS: INR 1.3 (<1.2)
[2017-06-24 05:22] LABS: ALT 503 U/L (21-72); AST 268 U/L (17-59); Alkaline Phosphatase 95 U/L (38-126); Anion Gap 14 mmol/L; Blood Urea Nitrogen 20 mg/dL (9-20); Calcium 9.5 mg/dL (8.4-10.2); Carbon Dioxide 22 mmol/L (22-30); Chloride 99 mmol/L (98-107); Glucose 96 mg/dL (74-99); Magnesium 1.9 mg/dL (1.6-2.3); Non-African American GFR(MDRD) >60 (>60 ml/min/1.73 sqM); Phosphorous 5.7 mg/dL (2.5-4.5); Potassium 4.2 mmol/L (3.5-5.1); Sodium 135 mmol/L (137-145); Total Bilirubin 1.2 mg/dL (0.2-1.3); Total Protein 6.9 g/dL (6.3-8.2)
[2017-06-24] MEDS: MAGNESIUM SULFATE-D5W PMX 1 GM in DEXTROSE/WATER 1 100ML.BAG IVPB SCH ×2 (06:32→16:56)
[2017-06-24] MEDS: IPRATROPIUM-ALBUTEROL 3 ML NEB INHALATION SCH ×4 (07:17→19:32)
[2017-06-24 08:14] LABS: Glucose,Whole Blood 111 mg/dL (75-99)
[2017-06-24] MEDS ORDERED: FUROSEMIDE 250 MG in SODIUM CHLORIDE 0.9% 225 ML IVP SCH (09:00)
--- NOTE | 2017-06-24 09:06 | XR ---
EXAMINATION TYPE: XR chest 1V portable DATE OF EXAM: 06/24/2017 COMPARISON: 06/23/2017 HISTORY: Abnormal x-ray TECHNIQUE: Single frontal view of the chest is obtained. FINDINGS: Left-sided consolidation and pleural effusion is mildly improved. Right lung clear. No pne umothorax or overt failure. Heart prominent but stable. Arthropathy shoulders. IMPRESSION: 1. Mild improvement of left lower lobe infiltrate and small effusion.
[2017-06-24] MEDS: DIGOXIN 250 MCG TAB PO SCH (09:57)
[2017-06-24] MEDS: ASPIRIN 81 MG CHEW PO SCH (09:57)
[2017-06-24] MEDS: APIXABAN 5 MG TAB PO SCH ×2 (09:57→20:32)
[2017-06-24] MEDS: METOPROLOL TARTRATE 12.5 MG TAB PO SCH ×2 (10:50→20:33)
--- NOTE | 2017-06-24 11:14 | P.PN ---
Subjective Principal diagnosis: Atrial fibrillation with RVR, severe cardiomyopathy, congestive heart failure. A 56-year-old male patient who initially presented to [facility] because of increased shortness of breath. The patient was immediately identified to be in nature fibrillation with rapid ventricular response. His symptoms have been going on for about 3-5 days prior to him coming to the hospital. He was getting short of breath and he also complained of orthopnea where he was unable to lay down flat. For that reason, the patient got transferred to [facility]. Echocardiogram was done and I was told that the patient was found to have severe cardiomyopathy with an ejection fraction of less than 20%. At the same time the patient was placed on a Cardizem drip that was brought up to 15 mg an hour. He was still tachycardic. Based on that he was given Lopressor 50 mg by mouth 3 times a day. Following the addition of Lopressor, the patient became hypotensive and diaphoretic. His heart rate dropped down to the mid 60s and he became hypotensive. His systolic blood pressure dropped down to the 70s. At that point he got moved to the intensive care unit. The Cardizem drip was discontinued. He was given a bolus of 500 mL of normal saline. He responded gradually and his blood pressure is currently showing a systolic of above 100. Most recent BP is 104/88. His cardiac rhythm is still atrial fibrillation at the rate is controlled at low 100s. Denies having any chest pain. He shortness of breath is improved. No edema in lower extremities. No history of hyper or hypothyroidism. No history of sleep apnea. Troponins are 0.52 respectively. BNP level was 7370. His blood work showed a component of non-anion gap metabolic acidosis with a bicarb level of 18. His chest x-ray shows cardiomegaly along with pulmonary vessel congestion typical of an underlying CHF. No fever. No chills. No night sweats. He is a chronic alcoholic and he drinks sixpack [place] on a daily basis. On 06/21/2017 I'm seeing this patient in follow-up. The patient's critically ill. The patient is in acute heart failure and he presented with A. fib RVR. This morning he is able to sit up on a chair. He has orthopnea and he gets uncomfortable when he lays down flat. He still has neck veins and his chest x- ray still showing pulmonary edema. He has a nagging dry cough. His cardiac rhythm has slowed down is currently in a flutter at the rate of 113. He was started on amiodarone drip which is running at 1 mg/m. He will be loaded and subsequently maintained on oral amiodarone. He is also on metoprolol 12.5 mg by mouth twice a day. He was given a dose of Lasix this morning and he diuresed more than 700 mL of urine. His echocardiogram showed ejection fraction of less than 20%. Left atrium was moderately dilated. The right ventricle systolic pressure was 49 mmHg. No pericardial effusion. It was moderate degree of concentric left ventricular hypertrophy. The patient has no signs of delirium tremens. His AST and ALTs elevated probably related to shock liver in the setting of an acute heart failure. In terms of anticoagulation, the patient was taken off IV heparin and he was started another course. I discussed this case with Dr. Quintana. He is being contemplated for cardioversion/BISI On 06/22/2017, patient remains in the ICU, feels better, much improved compared to how he felt upon admission. Patient has less shortness of breath, able to lay flat, no chest pain, continues to have some palpitations. Patient is on oral amiodarone, has been responding well to diuretics, off Dobutrex, and still in A. fib with RVR/atrial flutter rate of 120. Patient does have poor LV function ejection fraction is 20%. No signs of delirium so far. Liver enzymes were noted to be elevated. Chest x-ray showed evidence of mild congestive changes. Cardiology staff is considering cardioversion/BISI. Labs were reviewed showed normal CBC. INR is 1.6 electrolytes and renal profile are normal. Liver enzymes are improving AST is down to 203 and his ALT is down to 421. On 06/23/2017, patient is doing quite well. Remains in A. fib/atrial flutter, rate is in the range of 110. Patient is yet to be cardioverted, remains on multiple meds including amiodarone, relatively asymptomatic, chest x-ray however is showing a new left pleural effusion and resolving to some extent the venous congestion. CBC is relatively normal basic metabolic profile is normal renal profile is normal. Patient was reevaluated today on 06/24/2017, continues to do well, his cardiac rhythm remains atrial fib/flutter rate seems to be better controlled, and is below 100. Hemodynamically the patient is stable. No specific complaints no cough no wheezing no shortness of breath. CBC is relatively normal basic metabolic profile is normal INR is 1.3. Patient is scheduled to undergo cardioversion sometime today. Objective - Vital Signs Vital signs: Vital Signs Temp 97.7 F 06/23/17 15:00 Pulse 91 06/24/17 07:00 Resp 17 06/24/17 07:00 BP 95/70 06/24/17 07:00 Pulse Ox 97 06/24/17 07:00 Intake & Output 06/23/17 06/24/17 06/24/17 18:59 06:59 18:59 Intake Total 663.3 762.753 80 Output Total 2920 800 0 Balance -2256.7 -37.247 80 Weight 88.9 kg 91.2 kg Intake: IV 120 55 80 0.9 120 55 80 Intake, IV Titration 483.3 347.753 Amount Amiodarone 450 mg In 33.3 247.753 Dextrose 5% in Water 250 ml @ 1 MG/MIN 33.33 mls/ hr IV .Q7H31M [facility] Rx#: [id number] Dextrose 5% in Water 250 250 ml @ 128 mls/hr IV .Q2H ONE with Amiodarone 300 mg Rx#:[id number] Magnesium Sulfate-D5w Pmx 200 1 gm In Dextrose/Water 1 100ml.bag @ 100 mls/hr IVPB Q1H [facility] Rx#: [id number] Magnesium Sulfate-D5w Pmx 100 1 gm In Dextrose/Water 1 100ml.bag @ 100 mls/hr IVPB Q1H [facility] Rx#: [id number] Oral 60 360 Output: Urine 2920 800 0 Other: Voiding Method Urinal Urinal # Voids 0 0 # Bowel Movements 0 0 - Exam Physical Exam: Revealed a 56-year-old white male in no distress. HEENT:[Neck is supple.] [No neck masses.] [No thyromegaly.] [No JVD.] Chest: [Diminished breath sounds and minimal crackles at the bases..] Cardiac Exam: [Tachycardic, irregular, no S3 gallop. Abdomen: [Soft, nontender, no megaly, no rebound, no guarding, normal bowel sounds.] Extremities: [No clubbing, no edema, no cyanosis.] Neurological Exam: [No focal neurologic deficit.] - Labs CBC & Chem 7: 06/24/17 04:20 06/24/17 04:20 Labs: Abnormal Lab Results - Last 24 Hours (Table) 06/24/17 06/24/17 06/24/17 Range/Units 04:20 04:20 08:12 PT 13.0 H (9.0-12.0) sec INR 1.3 H (<1.2) Sodium 135 L (137-145) mmol/L POC Glucose (mg/dL) 111 H (75-99) mg/dL Phosphorus 5.7 H (2.5-4.5) mg/dL AST 268 H (17-59) U/L ALT 503 H (21-72) U/L Assessment and Plan Plan: 1 severe cardiomyopathy with an ejection fraction of less than 20%. Rule out alcoholic cardiomyopathy with secondary pulmonary hypertension. The patient continues to be in acute heart failure. His chest x-ray is consistent mild congestive heart failure and left pleural effusion . Patient remains in atrial flutter. Good response to diuretics over the last 24 hours. Lasix was restarted because of his left pleural effusion and mild congestive changes does on the chest x-ray. 2 A. fib with RVR and currently the patient is on a 2:1 flutter rhythm with some degree of tachycardia with a heart rate in the 120. 3 mild pulmonary edema secondary to CHF, currently the patient on oxygen at 2 L/ m nasal cannula. Continue diuretics 4 transient hypotension, drug induced in the setting of an underlying cardiomyopathy, recovered and the patient is currently on no pressors. 5 smoker 6 alcoholism, no signs of delirium tremens 7 troponin leak 8 shock liver secondary to cardiomyopathy with history of liver function tests. Liver enzymes are improving. Recommendation: Continue present meds as listed, patient is scheduled to undergo cardioversion today. We'll continue to follow. Time with Patient: Less than 30
[2017-06-24] MEDS ORDERED: fentaNYL (PF) 50 MCG/ML 2 ML AMP ONE (12:05)
[2017-06-24] MEDS ORDERED: SODIUM CHLORIDE 0.9% 1,000 ML IV ONE (12:05)
[2017-06-24] MEDS ORDERED: MIDAZOLAM 2 MG/2 ML VIAL ONE (12:05)
[2017-06-24] MEDS ORDERED: HEPARIN SODIUM,PORCINE 5,000 UNIT/ML 1 ML VIAL ONE (12:05)
[2017-06-24] MEDS ORDERED: FUROSEMIDE 10 MG/ML 2 ML VIAL ONE (12:05)
[2017-06-24] MEDS ORDERED: LIDOCAINE 2% INJ 20 MG/ML SQ ONE (12:36)
[2017-06-24] MEDS ORDERED: HEPARIN SODIUM (1,000 UNIT/ML) 1,000 UNIT in SODIUM CHLORIDE 0.9% 1,000 ML IRRIGATION ONE (12:39)
[2017-06-24] MEDS ORDERED: ACETAMINOPHEN TAB 325 MG TAB PO PRN (14:40)
--- NOTE | 2017-06-24 15:06 | P.PCN ---
Preoperative Diagnosis: Procedure Diagnostic EP study and efficacy ablation for atrial flutter Indication for procedure Severe heart failure with congestive as well as a low flow state CHF class IV Atrial fibrillation with RVR, on IV amiodarone, now with atrial flutter with RVR , unresponsive to therapy, difficult rate control Very severe LV dysfunction, global Cardiac shock few days back with ischemic liver injury secondary to hypotension After a very detailed discussion and careful deliberation the decision was made to perform an EP study and radiofrequency ablation for atrial flutter without cardiodepressant anesthetic drugs Procedure details Patient was brought to the EP lab in a fasting state. Written informed consent was obtained prior to the procedure conscious sedation was performed by anesthesia. 2 venous sheaths in the right groin, 1 venous sheaths in the left groin. Patient was in tachycardia the start of the study. Tachycardia cycle length 273 ms QRS 101 ms, QT 378 ms. Later when he was in sinus rhythm after successful ablation sinus cycle length was 841 ms. In sinus rhythm AH intervals 61 ms and HV interval 73 ms, TX interval 280 ms Intracardiac echocardiography was performed. Smoke was noted in the left and right atria. Right atrial appendage and left atrial appendage were interrogated and there was no evidence for any definite intracardiac mass or thrombus Coronary sinus catheter was first place and concentric activation was noted with a cycle length of 273 ms consistent with atrial flutter. Entrainment mapping was performed from the cavo tricuspid isthmus. Post-pacing interval was within 30 ms of the tachycardia cycle length with concealed entrainment 3-D mapping of the right atrial isthmus with intracardiac echo and with CARTO mapping RF ablation from the tricuspid annulus to the eustachian ridge was performed with termination of the tachycardia. Following that the line was completed anatomically and then interrogated with differential pacing didn't bidirectional block was proven Atrial, coronary sinus and ventricular pacing was then performed. Parahisian pacing was performed and a barbara response is noted Sinus recovery times a 605 100 ms were 1078 and 1076 ms. Corresponding corrected sinus node recovery times were within normal limits. No delta waves no slow pathway noted with atrial pacing. AV node Wenckebach block 420 ms. VA Wenckebach block 540 ms. All catheters were removed patient was transferred back to the ICU. Procedure was performed with conscious sedation. He tolerated the procedure well without any acute complications and blood pressure improved after atrial flutter was terminated. 5000 units of IV heparin was given prior to starting ablation. He was already in ELIQUIS 5 mg twice daily Plan Patient transferred back to ICU, continue ELIQUIS 5 g twice daily, oral amiodarone 200 mg twice daily, metoprolol 12.5 g twice daily, spironolactone 25 mg by mouth daily Gradually maximize beta blockers and then add NORIS inhibitor as if the patient can tolerate it from a blood pressure standpoint Continue amiodarone 200 mg twice daily by mouth Digoxin should be reduced to 0.125 g by mouth daily Postoperative Diagnosis: Procedure(s) Performed: Implants: Anesthesia: MAC Pathology: none sent Condition: stable Disposition: ICU Indications for Procedure: Operative Findings: Description of Procedure:
--- NOTE | 2017-06-24 16:15 | P.PN ---
Subjective Progress note being dictated for Dr. Murrieta. 06/22/17 Interval history: This is a 56-year-old gentleman admitted with acute CHF exacerbation, severely dilated cardiomyopathy, secondary to alcohol abuse, cardiogenic shock and multiple other medical issues. Diuresed on Lasix. Breathing better today, Chest x-ray reporting bilateral infiltrate and small effusion, mild congestive changes. Dobutrex discontinued this morning .Telemetry Atrial flutter with fast ventricular rate,120's. Digoxin added to med regime in addition to amiodarone. Cardiology discussing potential cardioversion/BISI. LFTs improving, T bili 1.9. INR 1.6. 06/23/17: Remains in atrial flutter ranging from 100s to 140s, denies chest pain, or palpitations. Cardiology discussing possible cardioversion. Denies increasing shortness of breath, able to lay flat during sleep. LFTs and TB bili continue to improve. INR 1.4. Diuresed yesterday with 24-hour I&O reflecting a negative fluid balance. Chest x-ray suggestive of increasing left pleural effusion. 06/24/2017 INR 1.3. Remains in atrial flutter, rate better controlled currently in the 100s. Scheduled for ablation with cardiology today. O2 sats of 97-98% on 3 L nasal cannula. Denies increased shortness of breath or cough. Past medical history reviewed. Review of systems: CONSTITUTIONAL: Slept well, no specific complaints. HEENT: No recent visual problems or hearing problems. Denied any sore throat. CARDIOVASCULAR: No chest pain, orthopnea, PND, no palpitations, no syncope. PULMONARY: No shortness of breath, no cough, no hemoptysis. Able to lay flat without increasing shortness of breath GASTROINTESTINAL: No diarrhea, no nausea, no vomiting, no abdominal pain. Normoactive bowel sounds. NEUROLOGICAL: No headaches, no weakness, no numbness. HEMATOLOGICAL: Denies any bleeding or petechiae. GENITOURINARY: Denies any burning micturition, frequency, or urgency. MUSCULOSKELETAL/RHEUMATOLOGICAL: Denies any joint pain, swelling, or any muscle pain. ENDOCRINE: Denies any polyuria or polydipsia. PSYCHIATRIC: No anxiety, no depression The rest of the 14 point review of systems is negative Active Medications Generic Name Dose Route Start Last Admin Trade Name Freq PRN Reason Stop Dose Admin Acetaminophen 650 mg 06/24/17 14:40 06/24/17 15:45 Tylenol Tab PO 650 mg Q6HR PRN Administration Mild Pain Hydrocodone Bitart/Acetaminophen 1 each 06/19/17 15:12 [place] 5-325 PO Q6HR PRN Pain Albuterol/Ipratropium 3 ml 06/19/17 16:00 06/24/17 15:36 Duoneb 0.5 Mg-3 Mg/3 Ml Soln INHALATION Not Given RT-QID SAMIR Alprazolam 0.25 mg 06/19/17 15:12 06/23/17 21:13 Xanax PO 0.25 mg TID PRN Administration Anxiety Amiodarone HCl 200 mg 06/24/17 21:00 Cordarone PO BID [facility] Apixaban 5 mg 06/20/17 12:00 06/24/17 09:57 Eliquis PO 5 mg BID [facility] Administration Aspirin 81 mg 06/23/17 13:15 06/24/17 09:57 Aspirin PO 81 mg DAILY [facility] Administration Chlorphenir/Hydrocodone Polistirex 5 ml 06/21/17 10:45 06/23/17 11:09 Tussionex PO 5 ml Q12H [facility] Administration Digoxin 125 mcg 06/25/17 09:00 Lanoxin PO DAILY [facility] Folic Acid 1 mg 06/22/17 12:00 06/23/17 11:10 Folic Acid PO 1 mg DAILY@1200 [facility] Administration Norepinephrine Bitartrate 4 mg in 250 mls @ 0 mls/hr 06/19/17 19:30 Levophed-0.9% Nacl 4 Mg/250ml Pmx IV .Q0M [facility] Protocol Titrate Lorazepam 1 mg 06/19/17 15:07 06/20/17 21:07 Ativan PO 1 mg Q2HR PRN Administration Anxiety Lorazepam 1 mg 06/19/17 15:29 Ativan IV Q2HR PRN CIWA 8 or 9 Lorazepam 1 mg 06/19/17 15:29 Ativan IV Q1HR PRN CIWA 10 to 15 Magnesium Oxide 400 mg 06/19/17 15:30 06/23/17 07:35 Mag-Ox PO 400 mg DAILY [facility] Administration Metoprolol Tartrate 12.5 mg 06/24/17 21:00 Lopressor PO BID [facility] Miscellaneous Information 1 each 06/20/17 01:14 Magnesium Per Protocol MISCELLANE DAILY PRN Per Protocol Protocol Miscellaneous Information 1 each 06/22/17 05:28 Potassium Per Protocol MISCELLANE DAILY PRN Per Protocol Protocol Multivitamins 1 each 06/20/17 12:00 06/23/17 11:10 Theragran PO 1 each DAILY@1200 [facility] Administration Naloxone HCl 0.2 mg 06/19/17 22:15 Narcan IV Q2M PRN Opioid Reversal Sodium Chloride 12 ml 06/24/17 21:00 Saline Flush IV Q12HR [facility] Spironolactone 25 mg 06/25/17 09:00 Aldactone PO DAILY [facility] Temazepam 15 mg 06/19/17 15:12 Restoril PO HS PRN Insomnia Thiamine HCl 100 mg 06/19/17 17:00 06/23/17 17:39 Vitamin B-1 PO 100 mg BID@1200,1700 [facility] Administration Objective - Vital Signs Vital signs: Vital Signs Temp 97.4 F L 06/24/17 15:30 Pulse 77 06/24/17 15:30 Resp 25 H 06/24/17 15:30 BP 110/88 06/24/17 15:30 Pulse Ox 98 06/24/17 15:36 Intake & Output 06/23/17 06/24/17 06/24/17 18:59 06:59 18:59 Intake Total 663.3 762.753 685 Output Total 2920 800 0 Balance -2256.7 -37.247 685 Weight 88.9 kg 91.2 kg Intake: IV 120 55 685 0.9 120 55 85 Intake, IV Titration 483.3 347.753 Amount Amiodarone 450 mg In 33.3 247.753 Dextrose 5% in Water 250 ml @ 1 MG/MIN 33.33 mls/ hr IV .Q7H31M [facility] Rx#: [id number] Dextrose 5% in Water 250 250 ml @ 128 mls/hr IV .Q2H ONE with Amiodarone 300 mg Rx#:[id number] Magnesium Sulfate-D5w Pmx 200 1 gm In Dextrose/Water 1 100ml.bag @ 100 mls/hr IVPB Q1H [facility] Rx#: [id number] Magnesium Sulfate-D5w Pmx 100 1 gm In Dextrose/Water 1 100ml.bag @ 100 mls/hr IVPB Q1H [facility] Rx#: [id number] Oral 60 360 Output: Urine 2920 800 0 Other: Voiding Method Urinal Urinal # Voids 0 0 0 # Bowel Movements 0 0 0 ABP, PAP, CO, CI - Last Documented Pulmonary Artery Pressure - Exam PHYSICAL EXAM: VITAL SIGNS: [As above] GENERAL: Sitting up in bed, no acute distress HEENT: Conjunctivae normal. eyes normal. Oral mucosa moist. No lymph node enlargement NECK: No JVD. No thyroid enlargement. No LNs CARDIOVASCULAR: S1, S2, irregular , mild tachycardia, positive systolic murmur , trace edema RESPIRATION: Breath sounds diminished in the bases. Fine bibasilar crackles No rhonchi, no wheezing. ABDOMEN: Soft, nontender . No guarding. no masses palpable. No ascites, No hepatosplenomegaly.Bowel sounds heard. LEGS: no edema. no swelling PSYCHIATRY: Alert and oriented 3, mood and affect normal. NERVOUS SYSTEM: Cranial N 2-12 grossly normal. Moves all 4 limbs. Diffuse weakness No focal deficits. No sensory deficit. Skin: no ulcer no rash Lymphatic system. No LN neck axilla or groin. - Labs CBC & Chem 7: 06/24/17 04:20 06/24/17 04:20 Labs: Abnormal Lab Results - Last 24 Hours (Table) 06/24/17 06/24/17 06/24/17 Range/Units 04:20 04:20 08:12 PT 13.0 H (9.0-12.0) sec INR 1.3 H (<1.2) Sodium 135 L (137-145) mmol/L POC Glucose (mg/dL) 111 H (75-99) mg/dL Phosphorus 5.7 H (2.5-4.5) mg/dL AST 268 H (17-59) U/L ALT 503 H (21-72) U/L Assessment and Plan Plan: 1. Acute on chronic CHF systolic dysfunction, 20% with possible dilated cardiomyopathy secondary to alcohol. 2. [ Troponin 0.582, indeterminate, possibly secondary to CHF]. 3. [ Atrial fibrillation, new onset with fast ventricular rate, currently atrial flutter,fast ventricular rate]. 4. Hypotension with cardiogenic shock, resolved 5. EtOH abuse]. 6. nicotine dependence]. 7. [ Elevated LFTs possibly hepatitis indicating shock liver, improving. 8. Left pleural effusion per chest x-ray Plan: Continue current medication regime ,Amiodarone, CIWA protocol,monitoring and symptomatic treatment. Ablation pending .conversion of amiodarone drip to oral as per cardiology.Close monitoring of LFTs , coags, with repeat labs ordered for a.m. Prognosis guarded given multiple complex medical issues. The impression and plan of care has been dictated as directed. : I performed a H&P examination of this patient and discussed the same with the dictator. I agree with the dictator's note. Any additional findings/opinions/ etc. will be noted.
[2017-06-24] MEDS: AMIODARONE 450 MG in DEXTROSE 5% IN WATER 250 ML IV SCH ×4 (16:54→16:55)
[2017-06-24] MEDS: FOLIC ACID 1 MG TAB PO SCH (16:56)
[2017-06-24] MEDS: MULTIVITAMINS, THERA 1 EACH TAB PO SCH (16:56)
[2017-06-24] MEDS: THIAMINE 100 MG TAB PO SCH ×2 (16:56→20:11)
[2017-06-24] MEDS: MAGNESIUM OXIDE 400 MG TAB PO SCH (16:56)
[2017-06-24] MEDS: CHLORPHEN-HYDROcod 8-10mg/5ml 5 ML ORAL.SYRG PO SCH ×2 (16:57→23:27)
[2017-06-24] MEDS: ALPRAZolam 0.25 MG TAB PO PRN (19:54)
[2017-06-24] MEDS: AMIODARONE 200 MG TAB PO SCH (20:32)
[2017-06-25 06:00] LABS: INR 1.3 (<1.2); Prothrombin Time 12.8 sec (9.0-12.0)
[2017-06-25 06:06] LABS: CH 31.5; CHCM 35.2; HCT 45.2 % (39.0-53.0); HGB 15.7 gm/dL (13.0-17.5); MCH 31.3 pg (25.0-35.0); MCHC 34.9 g/dL (31.0-37.0); MCV 89.7 fL (80.0-100.0); RBC 5.04 m/uL (4.30-5.90); RDW 12.5 % (11.5-15.5); WBC 10.1 k/uL (3.8-10.6)
[2017-06-25 06:16] LABS: ALT 487 U/L (21-72); AST 264 U/L (17-59); Alkaline Phosphatase 84 U/L (38-126); Anion Gap 11 mmol/L; Blood Urea Nitrogen 21 mg/dL (9-20); Calcium 9.1 mg/dL (8.4-10.2); Carbon Dioxide 21 mmol/L (22-30); Chloride 102 mmol/L (98-107); Glucose 91 mg/dL (74-99); Magnesium 1.9 mg/dL (1.6-2.3); Non-African American GFR(MDRD) >60 (>60 ml/min/1.73 sqM); Phosphorous 4.5 mg/dL (2.5-4.5); Potassium 4.5 mmol/L (3.5-5.1); Sodium 134 mmol/L (137-145); Total Bilirubin 1.5 mg/dL (0.2-1.3); Total Protein 6.6 g/dL (6.3-8.2)
[2017-06-25] MEDS ORDERED: Magnesium Replacement Protocol 1 EACH MISC MISCELLANE PRN (06:38)
[2017-06-25] MEDS: MAGNESIUM SULFATE-D5W PMX 1 GM in DEXTROSE/WATER 1 100ML.BAG IVPB SCH ×2 (07:16→08:21)
[2017-06-25] MEDS: IPRATROPIUM-ALBUTEROL 3 ML NEB INHALATION SCH ×4 (07:53→20:00)
[2017-06-25] MEDS: ASPIRIN 81 MG CHEW PO SCH (08:22)
[2017-06-25] MEDS: AMIODARONE 200 MG TAB PO SCH ×2 (08:22→20:13)
[2017-06-25] MEDS: APIXABAN 5 MG TAB PO SCH ×2 (08:22→20:12)
[2017-06-25] MEDS: METOPROLOL TARTRATE 12.5 MG TAB PO SCH ×2 (08:23→20:12)
[2017-06-25] MEDS: DIGOXIN 125 MCG TAB PO SCH (08:23)
[2017-06-25] MEDS: MAGNESIUM OXIDE 400 MG TAB PO SCH (08:23)
[2017-06-25] MEDS: SPIRONOLACTONE 25 MG TAB PO SCH (08:24)
--- NOTE | 2017-06-25 11:07 | P.PN ---
Subjective Principal diagnosis: Atrial fibrillation with RVR, severe cardiomyopathy, congestive heart failure. A 56-year-old male patient who initially presented to [facility] because of increased shortness of breath. The patient was immediately identified to be in nature fibrillation with rapid ventricular response. His symptoms have been going on for about 3-5 days prior to him coming to the hospital. He was getting short of breath and he also complained of orthopnea where he was unable to lay down flat. For that reason, the patient got transferred to [facility]. Echocardiogram was done and I was told that the patient was found to have severe cardiomyopathy with an ejection fraction of less than 20%. At the same time the patient was placed on a Cardizem drip that was brought up to 15 mg an hour. He was still tachycardic. Based on that he was given Lopressor 50 mg by mouth 3 times a day. Following the addition of Lopressor, the patient became hypotensive and diaphoretic. His heart rate dropped down to the mid 60s and he became hypotensive. His systolic blood pressure dropped down to the 70s. At that point he got moved to the intensive care unit. The Cardizem drip was discontinued. He was given a bolus of 500 mL of normal saline. He responded gradually and his blood pressure is currently showing a systolic of above 100. Most recent BP is 104/88. His cardiac rhythm is still atrial fibrillation at the rate is controlled at low 100s. Denies having any chest pain. He shortness of breath is improved. No edema in lower extremities. No history of hyper or hypothyroidism. No history of sleep apnea. Troponins are 0.52 respectively. BNP level was 7370. His blood work showed a component of non-anion gap metabolic acidosis with a bicarb level of 18. His chest x-ray shows cardiomegaly along with pulmonary vessel congestion typical of an underlying CHF. No fever. No chills. No night sweats. He is a chronic alcoholic and he drinks sixpack [place] [employer] on a daily basis. On 06/21/2017 I'm seeing this patient in follow-up. The patient's critically ill. The patient is in acute heart failure and he presented with A. fib RVR. This morning he is able to sit up on a chair. He has orthopnea and he gets uncomfortable when he lays down flat. He still has neck veins and his chest x- ray still showing pulmonary edema. He has a nagging dry cough. His cardiac rhythm has slowed down is currently in a flutter at the rate of 113. He was started on amiodarone drip which is running at 1 mg/m. He will be loaded and subsequently maintained on oral amiodarone. He is also on metoprolol 12.5 mg by mouth twice a day. He was given a dose of Lasix this morning and he diuresed more than 700 mL of urine. His echocardiogram showed ejection fraction of less than 20%. Left atrium was moderately dilated. The right ventricle systolic pressure was 49 mmHg. No pericardial effusion. It was moderate degree of concentric left ventricular hypertrophy. The patient has no signs of delirium tremens. His AST and ALTs elevated probably related to shock liver in the setting of an acute heart failure. In terms of anticoagulation, the patient was taken off IV heparin and he was started another course. I discussed this case with Dr. Quintana. He is being contemplated for cardioversion/BISI On 06/22/2017, patient remains in the ICU, feels better, much improved compared to how he felt upon admission. Patient has less shortness of breath, able to lay flat, no chest pain, continues to have some palpitations. Patient is on oral amiodarone, has been responding well to diuretics, off Dobutrex, and still in A. fib with RVR/atrial flutter rate of 120. Patient does have poor LV function ejection fraction is 20%. No signs of delirium so far. Liver enzymes were noted to be elevated. Chest x-ray showed evidence of mild congestive changes. Cardiology staff is considering cardioversion/BISI. Labs were reviewed showed normal CBC. INR is 1.6 electrolytes and renal profile are normal. Liver enzymes are improving AST is down to 203 and his ALT is down to 421. On 06/23/2017, patient is doing quite well. Remains in A. fib/atrial flutter, rate is in the range of 110. Patient is yet to be cardioverted, remains on multiple meds including amiodarone, relatively asymptomatic, chest x-ray however is showing a new left pleural effusion and resolving to some extent the venous congestion. CBC is relatively normal basic metabolic profile is normal renal profile is normal. Patient was reevaluated today on 06/24/2017, continues to do well, his cardiac rhythm remains atrial fib/flutter rate seems to be better controlled, and is below 100. Hemodynamically the patient is stable. No specific complaints no cough no wheezing no shortness of breath. CBC is relatively normal basic metabolic profile is normal INR is 1.3. Patient is scheduled to undergo cardioversion sometime today. Patient was reevaluated today on 06/25/2017, he seems to be doing quite well, he underwent EP study and the efficacy see ablation for atrial flutter. Patient did extremely well, and obviously his procedure was successful. Back in the ICU this morning, in sinus rhythm, relatively asymptomatic. No cough no wheezing no shortness of breath. Labs were noted and they seem to be relatively unremarkable including CBC and basic metabolic profile. Objective - Vital Signs Vital signs: Vital Signs Temp 98.1 F 06/25/17 08:00 Pulse 63 06/25/17 10:00 Resp 17 06/25/17 10:00 BP 81/58 06/25/17 10:00 Pulse Ox 97 06/25/17 10:00 Intake & Output 06/24/17 06/25/17 06/25/17 18:59 06:59 18:59 Intake Total 725 110 240 Output Total 1050 725 250 Balance -325 -615 -10 Weight 85.6 kg 85.6 kg Intake: IV 725 110 140 0.9 125 110 40 Magnesium Sulfate-D5w Pmx 100 1 gm In Dextrose/Water 1 100ml.bag @ 100 mls/hr IVPB Q1H SAMIR Rx#: [id number] Intake, IV Titration 100 Amount Magnesium Sulfate-D5w Pmx 100 1 gm In Dextrose/Water 1 100ml.bag @ 100 mls/hr IVPB Q1H SAMIR Rx#: [id number] Output: Urine 1050 725 250 Other: Voiding Method Urinal Urinal Urinal # Voids 0 0 0 # Bowel Movements 0 0 - Exam Physical Exam: Revealed a 56-year-old white male in no distress. HEENT:[Neck is supple.] [No neck masses.] [No thyromegaly.] [No JVD.] Chest: [Diminished breath sounds and minimal crackles at the bases..] Cardiac Exam: [Normal S1 and S2, no gallops. Abdomen: [Soft, nontender, no megaly, no rebound, no guarding, normal bowel sounds.] Extremities: [No clubbing, no edema, no cyanosis.] Neurological Exam: [No focal neurologic deficit.] - Labs CBC & Chem 7: 06/25/17 05:00 06/25/17 05:00 Labs: Abnormal Lab Results - Last 24 Hours (Table) 06/25/17 06/25/17 Range/Units 05:00 05:00 PT 12.8 H (9.0-12.0) sec INR 1.3 H (<1.2) Sodium 134 L (137-145) mmol/L Carbon Dioxide 21 L (22-30) mmol/L BUN 21 H (9-20) mg/dL Total Bilirubin 1.5 H (0.2-1.3) mg/dL AST 264 H (17-59) U/L ALT 487 H (21-72) U/L Albumin 3.4 L (3.5-5.0) g/dL Assessment and Plan Plan: 1 severe cardiomyopathy with an ejection fraction of less than 20%. Rule out alcoholic cardiomyopathy with secondary pulmonary hypertension. The patient continues to be in acute heart failure. His chest x-ray is consistent mild congestive heart failure and left pleural effusion . Patient remains in atrial flutter. Good response to diuretics over the last 24 hours. Lasix was restarted because of his left pleural effusion and mild congestive changes does on the chest x-ray. 2 A. fib with RVR and currently the patient is on a 2:1 flutter rhythm with some degree of tachycardia with a heart rate in the 120. 3 mild pulmonary edema secondary to CHF, currently the patient on oxygen at 2 L/ m nasal cannula. Continue diuretics 4 transient hypotension, drug induced in the setting of an underlying cardiomyopathy, recovered and the patient is currently on no pressors. 5 smoker 6 alcoholism, no signs of delirium tremens 7 troponin leak 8 shock liver secondary to cardiomyopathy with history of liver function tests. Liver enzymes are improving. 9 status post ablation for atrial flutter, successful, postoperative day #1. Recommendation: Continue present meds as listed, and to be transferred to a monitored bed on selective today, we will continue to follow. Time with Patient: Less than 30
[2017-06-25 12:32] VITALS: BMI 24.9
[2017-06-25] MEDS: CHLORPHEN-HYDROcod 8-10mg/5ml 5 ML ORAL.SYRG PO SCH ×2 (13:45→21:43)
[2017-06-25] MEDS: FOLIC ACID 1 MG TAB PO SCH (14:58)
[2017-06-25] MEDS: MULTIVITAMINS, THERA 1 EACH TAB PO SCH (14:58)
[2017-06-25] MEDS: THIAMINE 100 MG TAB PO SCH ×2 (14:59→18:07)
--- NOTE | 2017-06-25 15:48 | P.PN ---
Subjective This is a pleasant 56-year-old gentleman with history of alcohol abuse presented to the emergency department with shortness of breath, atrial fibrillation and elevated troponin. Patient was found to be in severe heart failure with an ejection fraction of less than 20%. Atrial fibrillation with rapid ventricular response that converted to atrial flutter with rapid ventricular response, unresponsive to drug therapy. Patient subsequently underwent EP study and successful ablation yesterday by Dr. Noel. He was transferred out of ICU this afternoon. He is resting comfortably in bed his breathing is much improved. Patient overall is feeling quite a bit better. Objective - Vital Signs Vital signs: Vital Signs Temp 98.1 F 06/25/17 08:00 Pulse 63 06/25/17 10:00 Resp 17 06/25/17 10:00 BP 81/58 06/25/17 10:00 Pulse Ox 97 06/25/17 10:00 Intake & Output 06/24/17 06/25/17 06/25/17 18:59 06:59 18:59 Intake Total 725 110 360 Output Total 1050 725 250 Balance -325 -615 110 Weight 85.6 kg 85.6 kg Intake: IV 725 110 140 0.9 125 110 40 Magnesium Sulfate-D5w Pmx 100 1 gm In Dextrose/Water 1 100ml.bag @ 100 mls/hr IVPB Q1H SAMIR Rx#: [id number] Intake, IV Titration 100 Amount Magnesium Sulfate-D5w Pmx 100 1 gm In Dextrose/Water 1 100ml.bag @ 100 mls/hr IVPB Q1H SAMIR Rx#: [id number] Oral 120 Output: Urine 1050 725 250 Other: Voiding Method Urinal Urinal Urinal # Voids 0 0 0 # Bowel Movements 0 0 - Exam PHYSICAL EXAMINATION: HEENT: Head is atraumatic, normocephalic. Pupils equal, round. Neck is supple. There is no elevated jugular venous pressure. HEART EXAMINATION: Heart sounds regular, S1 and S2 normal. No murmur or gallop heard. CHEST EXAMINATION: Lungs are clear to auscultation and precussion. No chest wall tenderness is noted on palpation or with deep breathing. ABDOMEN: Soft, nontender. Bowel sounds are heard. No organomegaly noted. EXTREMITIES: 2+ peripheral pulses with no evidence of peripheral edema and no calf tenderness noted. NEUROLOGIC patient is awake, alert and oriented x3. . - Labs CBC & Chem 7: 06/25/17 05:00 06/25/17 05:00 Labs: Abnormal Lab Results - Last 24 Hours (Table) 06/25/17 06/25/17 Range/Units 05:00 05:00 PT 12.8 H (9.0-12.0) sec INR 1.3 H (<1.2) Sodium 134 L (137-145) mmol/L Carbon Dioxide 21 L (22-30) mmol/L BUN 21 H (9-20) mg/dL Total Bilirubin 1.5 H (0.2-1.3) mg/dL AST 264 H (17-59) U/L ALT 487 H (21-72) U/L Albumin 3.4 L (3.5-5.0) g/dL Assessment and Plan Plan: Assessment and plan #1 atrial flutter with rapid ventricular response, status post successful ablation #2 cardiomyopathy with symptoms of heart failure on admission, ejection fraction less than 20% #3 hypotension #4 alcohol abuse From cardiology , medications were reviewed and we'll continue the same. Patient will be continued to be monitored overnight on telemetry. Likely will be discharged home tomorrow and will follow-up as an outpatient with Dr. Noel in the office. The above dictated assessment and findings were discussed with signing physician. The impression and plan of care have been directed as dictated. Berta Aquino, Nurse Practitioner, acting as scribe for signing physician.
--- NOTE | 2017-06-25 17:54 | P.PN ---
Subjective Progress note being dictated for Dr. Murrieta. 06/22/17 Interval history: This is a 56-year-old gentleman admitted with acute CHF exacerbation, severely dilated cardiomyopathy, secondary to alcohol abuse, cardiogenic shock and multiple other medical issues. Diuresed on Lasix. Breathing better today, Chest x-ray reporting bilateral infiltrate and small effusion, mild congestive changes. Dobutrex discontinued this morning .Telemetry Atrial flutter with fast ventricular rate,120's. Digoxin added to med regime in addition to amiodarone. Cardiology discussing potential cardioversion/BIIS. LFTs improving, T bili 1.9. INR 1.6. 06/23/17: Remains in atrial flutter ranging from 100s to 140s, denies chest pain, or palpitations. Cardiology discussing possible cardioversion. Denies increasing shortness of breath, able to lay flat during sleep. LFTs and TB bili continue to improve. INR 1.4. Diuresed yesterday with 24-hour I&O reflecting a negative fluid balance. Chest x-ray suggestive of increasing left pleural effusion. 06/24/2017 INR 1.3. Remains in atrial flutter, rate better controlled currently in the 100s. Scheduled for ablation with cardiology today. O2 sats of 97-98% on 3 L nasal cannula. Denies increased shortness of breath or cough. 06/25/2017 underwent successful ablation yesterday, converted to sinus rhythm . Tolerated procedure well. Telemetry reports continued sinus rhythm. Ambulating in room, tolerating increase in exertion well. INR 1.3. Maintaining MAP 65 to 84. LFTs improving. Maintaining O2 sats in the mid 90s on room air. Denies chest pain, palpitations or increasing shortness of breath. Objective - Vital Signs Vital signs: Vital Signs Temp 98.1 F 06/25/17 08:00 Pulse 63 06/25/17 10:00 Resp 17 06/25/17 10:00 BP 81/58 06/25/17 10:00 Pulse Ox 95 06/25/17 15:42 Intake & Output 06/24/17 06/25/17 06/25/17 18:59 06:59 18:59 Intake Total 725 110 360 Output Total 1050 725 250 Balance -325 -615 110 Weight 85.6 kg 85.6 kg Intake: IV 725 110 140 0.9 125 110 40 Magnesium Sulfate-D5w Pmx 100 1 gm In Dextrose/Water 1 100ml.bag @ 100 mls/hr IVPB Q1H SAMIR Rx#: [id number] Intake, IV Titration 100 Amount Magnesium Sulfate-D5w Pmx 100 1 gm In Dextrose/Water 1 100ml.bag @ 100 mls/hr IVPB Q1H SAMIR Rx#: [id number] Oral 120 Output: Urine 1050 725 250 Other: Voiding Method Urinal Urinal Urinal # Voids 0 0 0 # Bowel Movements 0 0 - Exam PHYSICAL EXAM: VITAL SIGNS: [As above] GENERAL: Sitting up in bed, no acute distress HEENT: Conjunctivae normal. eyes normal. Oral mucosa moist. No lymph node enlargement NECK: No JVD. No thyroid enlargement. No LNs CARDIOVASCULAR: S1, S2, regular , positive systolic murmur, no edema RESPIRATION: Breath sounds diminished in the bases. Fine bibasilar crackles No rhonchi, no wheezing. ABDOMEN: Soft, nontender . No guarding. no masses palpable. No ascites, No hepatosplenomegaly.Bowel sounds heard. LEGS: no edema. no swelling PSYCHIATRY: Alert and oriented 3, mood and affect normal. NERVOUS SYSTEM: Cranial N 2-12 grossly normal. Moves all 4 limbs. Diffuse weakness No focal deficits. No sensory deficit. Skin: no ulcer no rash Lymphatic system. No LN neck axilla or groin. - Labs CBC & Chem 7: 06/25/17 05:00 06/25/17 05:00 Labs: Abnormal Lab Results - Last 24 Hours (Table) 06/25/17 06/25/17 Range/Units 05:00 05:00 PT 12.8 H (9.0-12.0) sec INR 1.3 H (<1.2) Sodium 134 L (137-145) mmol/L Carbon Dioxide 21 L (22-30) mmol/L BUN 21 H (9-20) mg/dL Total Bilirubin 1.5 H (0.2-1.3) mg/dL AST 264 H (17-59) U/L ALT 487 H (21-72) U/L Albumin 3.4 L (3.5-5.0) g/dL Assessment and Plan Plan: 1. Acute on chronic CHF systolic dysfunction, 20% with possible dilated cardiomyopathy secondary to alcohol. 2. [ Troponin 0.582, indeterminate, possibly secondary to CHF]. 3. [ Atrial fibrillation, new onset with fast ventricular rate, currently atrial flutter,fast ventricular rate, status post successful ablation, currently sinus rhythm]. 4. Hypotension with cardiogenic shock, resolved 5. EtOH abuse]. 6. nicotine dependence]. 7. [ Elevated LFTs possibly hepatitis indicating shock liver, improving. 8. Left pleural effusion per chest x-ray Plan: Continue current medication regime ,Amiodarone, CIWA protocol,monitoring and symptomatic treatment. Patient continues to do well post ablation. Transferred out of ICU to telemetry unit. Discharge planning in progress for this weekend. Further recommendations to follow. The impression and plan of care has been dictated as directed. : I performed a H&P examination of this patient and discussed the same with the dictator. I agree with the dictator's note. Any additional findings/opinions/ etc. will be noted.
[2017-06-25] MEDS: ALPRAZolam 0.25 MG TAB PO PRN (20:12)
[2017-06-25] MEDS: SODIUM CHLORIDE 0.9% 1,000 ML IV SCH (21:48)
[2017-06-26 06:32] LABS: CH 31.4; CHCM 34.8; HCT 44.2 % (39.0-53.0); HGB 15.2 gm/dL (13.0-17.5); MCH 31.1 pg (25.0-35.0); MCHC 34.4 g/dL (31.0-37.0); MCV 90.5 fL (80.0-100.0); Mean Platelet Volume 6.6; RBC 4.88 m/uL (4.30-5.90); RDW 12.4 % (11.5-15.5); WBC 8.6 k/uL (3.8-10.6)
[2017-06-26 06:48] LABS: ALT 397 U/L (21-72); AST 166 U/L (17-59); Alkaline Phosphatase 84 U/L (38-126); Anion Gap 9 mmol/L; Blood Urea Nitrogen 19 mg/dL (9-20); Calcium 9.2 mg/dL (8.4-10.2); Carbon Dioxide 26 mmol/L (22-30); Chloride 101 mmol/L (98-107); Glucose 83 mg/dL (74-99); Magnesium 2.1 mg/dL (1.6-2.3); Non-African American GFR(MDRD) >60 (>60 ml/min/1.73 sqM); Phosphorous 4.4 mg/dL (2.5-4.5); Potassium 4.4 mmol/L (3.5-5.1); Sodium 136 mmol/L (137-145); Total Bilirubin 1.5 mg/dL (0.2-1.3); Total Protein 6.6 g/dL (6.3-8.2)
[2017-06-26] MEDS: IPRATROPIUM-ALBUTEROL 3 ML NEB INHALATION SCH ×2 (08:25→12:17)
[2017-06-26] MEDS: AMIODARONE 200 MG TAB PO SCH (09:28)
[2017-06-26] MEDS: APIXABAN 5 MG TAB PO SCH (09:28)
[2017-06-26] MEDS: METOPROLOL TARTRATE 12.5 MG TAB PO SCH (09:29)
[2017-06-26] MEDS: MAGNESIUM OXIDE 400 MG TAB PO SCH (09:29)
[2017-06-26] MEDS: SPIRONOLACTONE 25 MG TAB PO SCH (09:29)
[2017-06-26] MEDS: DIGOXIN 125 MCG TAB PO SCH (09:29)
[2017-06-26] MEDS: ASPIRIN 81 MG CHEW PO SCH (09:29)
--- NOTE | 2017-06-26 11:19 | P.PN ---
Subjective This is a pleasant 56-year-old gentleman with history of alcohol abuse presented to the emergency department with shortness of breath, atrial fibrillation and elevated troponin. Patient was found to be in severe heart failure with an ejection fraction of less than 20%. Atrial fibrillation with rapid ventricular response that converted to atrial flutter with rapid ventricular response, unresponsive to drug therapy. Patient subsequently underwent EP study and successful ablation yesterday by Dr. Noel. He was transferred out of ICU yesterday afternoon. He is resting comfortably in bed his breathing is much improved. Patient overall is feeling quite a bit better. Objective - Vital Signs Vital signs: Vital Signs Temp 97.5 F L 06/26/17 04:00 Pulse 67 06/26/17 08:00 Resp 16 06/26/17 08:00 BP 89/53 06/26/17 04:00 Pulse Ox 93 L 06/26/17 04:00 Intake & Output 06/25/17 06/26/17 06/26/17 18:59 06:59 18:59 Intake Total 720 200 240 Output Total 250 Balance 470 200 240 Weight 85.6 kg 89.6 kg Intake: IV 140 0.9 40 Magnesium Sulfate-D5w Pmx 100 1 gm In Dextrose/Water 1 100ml.bag @ 100 mls/hr IVPB Q1H [facility]IR Rx#: [id number] Intake, IV Titration 100 Amount Magnesium Sulfate-D5w Pmx 100 1 gm In Dextrose/Water 1 100ml.bag @ 100 mls/hr IVPB Q1H SAMIR Rx#: [id number] Oral 480 200 240 Output: Urine 250 Other: Voiding Method Urinal Toilet Toilet # Voids 1 1 - Exam PHYSICAL EXAMINATION: HEENT: Head is atraumatic, normocephalic. Pupils equal, round. Neck is supple. There is no elevated jugular venous pressure. HEART EXAMINATION: Heart sounds regular, S1 and S2 normal. No murmur or gallop heard. CHEST EXAMINATION: Lungs are clear to auscultation and precussion. No chest wall tenderness is noted on palpation or with deep breathing. ABDOMEN: Soft, nontender. Bowel sounds are heard. No organomegaly noted. EXTREMITIES: 2+ peripheral pulses with no evidence of peripheral edema and no calf tenderness noted. Bilateral groin puncture sites soft without ecchymosis or hematoma. NEUROLOGIC patient is awake, alert and oriented x3. . - Labs CBC & Chem 7: 06/26/17 05:32 06/26/17 05:32 Labs: Abnormal Lab Results - Last 24 Hours (Table) 06/26/17 Range/Units 05:32 Sodium 136 L (137-145) mmol/L Total Bilirubin 1.5 H (0.2-1.3) mg/dL AST 166 H (17-59) U/L ALT 397 H (21-72) U/L Assessment and Plan Plan: Assessment and plan #1 atrial flutter with rapid ventricular response, status post successful ablation #2 cardiomyopathy with symptoms of heart failure on admission, ejection fraction less than 20% #3 hypotension #4 alcohol abuse From cardiology , medications were reviewed and we'll continue the same. Patient may be discharged home today and follow up in the office on Wednesday, July 02 as scheduled. The above dictated assessment and findings were discussed with signing physician. The impression and plan of care have been directed as dictated. Berta Aquino, Nurse Practitioner, acting as scribe for signing physician.
[2017-06-26 12:04] VITALS: TEMP 97.7
[2017-06-26 12:08] VITALS: BP 108/57
[2017-06-26 12:09] VITALS: PULSE 61; RESP 17
--- NOTE | 2017-06-26 18:05 | P.DS ---
Providers Date of admission: 06/19/17 13:03 Attending physician: Megan Murrieta Consults: 06/19/17 13:23 Consult Physician Urgent Consulting Provider: Toi Noel Consult Reason/Comments: new afib rvr Do you want consulting provider notified?: Already Contacted 06/19/17 15:04 Consult Physician Routine Consulting Provider: Rosy Lee Consult Reason/Comments: pneumonia Do you want consulting provider notified?: Yes Primary care physician: Megan Murrieta Hospital Course: This 56-year-old gentleman was admitted with a CHF acute exacerbation. Patient was found to have cardiomyopathy with ejection fraction 20% possibly secondary to alcohol. Patient also had indeterminate troponin secondary to CHF. Patient also had atrial fibrillation with a fast ventricular rate. The rhythm turn into atrial flutter fast heart rate.. Cardiology performed a cardiac ablation. Rhythm change in normal sinus rhythm. Patient was otherwise treated symptomatically. EtOH cessation advice given. Patient was monitored in ICU initially. Please refer to the multiple notes and consultations for further details. Overall patient made significant improvement. Recommend an outpatient follow-up with the primary physician and cardiology. Patient and family and understands and agrees. On exam vitals stable. Cardio S1 and S2 regular normal. Respiratory system clear to auscultation. Abdomen soft nontender. Final diagnosis 1. CHF acute exacerbation with acute on chronic systolic dysfunction ejection fraction 20% from the dilated cardio myopathy secondary to alcohol. 2. Troponin 0.582 indeterminate possibly secondary to CHF. 3. Atrial fibrillation new onset of Fassbender chlorate connoted needed to clear to fast ventricular rate converted normal sinus rhythm after cardiac ablation. 4. Hypotension possibly cartilage shock improved. 5. History of EtOH abuse. 7. History and nicotine dependence. 8. Elevated LFTs possibly hepatitis Cosper a shock liver and alcohol improved. 8. Left pleural effusion per chest x-ray stable. Plan - Discharge Summary New Discharge Prescriptions: New Amiodarone [Cordarone] 200 mg PO BID #180 tab Apixaban [Eliquis] 5 mg PO BID tab Aspirin 81 mg PO DAILY Digoxin [Lanoxin] 125 mcg PO DAILY #90 tab Magnesium Oxide [Mag-Ox] 400 mg PO DAILY #90 tab Metoprolol Tartrate [Lopressor] 12.5 mg PO BID #180 tab Spironolactone [Aldactone] 25 mg PO DAILY #90 tab Folic Acid 1 mg PO DAILY@1200 #30 tab LORazepam [Ativan] 1 mg PO Q8H PRN #20 tab PRN Reason: Anxiety Thiamine [Vitamin B-1] 100 mg PO BID@1200,1700 #30 tab Continue Multivitamins, Thera [Multivitamin (formulary)] 1 tab PO DAILY Discontinued Magnesium 200 mg PO DAILY Discharge Medication List Multivitamins, Thera [Multivitamin (formulary)] 1 tab PO DAILY 06/19/17 [History ] Amiodarone [Cordarone] 200 mg PO BID #180 tab 06/26/17 [Rx] Apixaban [Eliquis] 5 mg PO BID tab 06/26/17 [Rx] Aspirin 81 mg PO DAILY 06/26/17 [Rx] Digoxin [Lanoxin] 125 mcg PO DAILY #90 tab 06/26/17 [Rx] Folic Acid 1 mg PO DAILY@1200 #30 tab 06/26/17 [Rx] LORazepam [Ativan] 1 mg PO Q8H PRN #20 tab 06/26/17 [Rx] Magnesium Oxide [Mag-Ox] 400 mg PO DAILY #90 tab 06/26/17 [Rx] Metoprolol Tartrate [Lopressor] 12.5 mg PO BID #180 tab 06/26/17 [Rx] Spironolactone [Aldactone] 25 mg PO DAILY #90 tab 06/26/17 [Rx] Thiamine [Vitamin B-1] 100 mg PO BID@1200,1700 #30 tab 06/26/17 [Rx] Follow up Appointment(s)/Referral(s): Berta Aquino NPC [Nurse Practitioner] - 07/02/17 10:00 am Champ Swenson MD [REFERRING] - 3 Days Ambulatory/Diagnostic Orders: Complete Blood Count w/diff [LAB.AMB] Location: Determined By Patient Patient Instructions/Handouts: Heart Failure (DC), Atrial Fibrillation (DC) Activity/Diet/Wound Care/Special Instructions: diet cardiac act limited till f/u no etoh, smoking to attend aa Discharge Disposition: HOME SELF-CARE
== END 2017-06-26 16:18 | disposition home or self-care (01) | DRG 273 ==
LOC: 6SEL 13:03 → 6ICU 20:09 → 6SEL 06-25 10:03
PROVIDERS: ADMIT Hospitalist; ATTEND Hospitalist
PROC: 02583ZZ Destruction of Conduction Mechanism, Percutaneous Approach (ICD-10-PCS; principal; 2017-06-24 12:00)
PROC: 4A0234Z Measurement of Cardiac Electrical Activity, Percutaneous Approach (ICD-10-PCS; principal; 2017-06-24 12:00)
DX: I48.91 Unspecified atrial fibrillation (principal); K72.00 Acute and subacute hepatic failure without coma; R57.0 Cardiogenic shock; I50.23 Acute on chronic systolic (congestive) heart failure; E87.2 Acidosis; G72.1 Alcoholic myopathy; I11.0 Hypertensive heart disease with heart failure; I48.92 Unspecified atrial flutter; I42.0 Dilated cardiomyopathy; F10.20 Alcohol dependence, uncomplicated; F17.200 Nicotine dependence, unspecified, uncomplicated; I95.2 Hypotension due to drugs; Z79.01 Long term (current) use of anticoagulants; Z79.899 Other long term (current) drug therapy; Z82.49 Family history of ischemic heart disease and other diseases of the circulatory system; Z83.3 Family history of diabetes mellitus; T44.7X5A Adverse effect of beta-adrenoreceptor antagonists, initial encounter
CPT/HCPCS: 71010; 80048; 80053; 80061; 82272; 82553; 83735; 83880; 84100; 84443; 84484; 85025; 85027; 85379; 85610; 85730; 87324; 93306; 93613; 93656; 93662; 94640

== ENCOUNTER 2018-10-08 14:16 | Inpatient (IN) | payer OTHER ==
--- NOTE | 2018-10-08 15:13 | ED ---
General Adult HPI - General Chief complaint: Arrhythmia/Palpitations Stated complaint: RAPID HEART RATE Time Seen by Provider: 10/08/18 14:20 Source: patient, EMS, RN notes reviewed Mode of arrival: EMS Limitations: no limitations - History of Present Illness Initial comments: This is a 67-year-old male who presents emergency department with past medical history significant for atrial fibrillation. Patient got this morning he noticed his heart was racing fast and somewhat short of breath. Patient to the hospital near him and they determined he had A. fib with rapid ventricular response up with him on a Cardizem drip. They called here wanted the patient transferred and seen by his associate director of nursing. Patient states she's feeling better now that his heart rate is down to 100. Patient denies any chest pain. Patient denies any recent fever chills per patient states he did drink quite a bit of coffee this morning which is abnormal about having had any breakfast. Patient states he has had no abdominal pain he denies any nausea vomiting. Patient denies any swelling to his legs or calf tenderness. Patient is also on eliquis. - Related Data Home Medications Medication Instructions Recorded Confirmed Multivitamins, Thera [Multivitamin 1 tab PO DAILY 06/19/17 06/19/17 (formulary)] Previous Rx's Medication Instructions Recorded Amiodarone [Cordarone] 200 mg PO BID #180 tab 06/26/17 Apixaban [Eliquis] 5 mg PO BID tab 06/26/17 Aspirin 81 mg PO DAILY 06/26/17 Digoxin [Lanoxin] 125 mcg PO DAILY #90 tab 06/26/17 Folic Acid 1 mg PO DAILY@1200 #30 tab 06/26/17 LORazepam [Ativan] 1 mg PO Q8H PRN #20 tab 06/26/17 Magnesium Oxide [Mag-Ox] 400 mg PO DAILY #90 tab 06/26/17 Metoprolol Tartrate [Lopressor] 12.5 mg PO BID #180 tab 06/26/17 Spironolactone [Aldactone] 25 mg PO DAILY #90 tab 06/26/17 Thiamine [Vitamin B-1] 100 mg PO BID@1200,1700 #30 tab 06/26/17 Allergies Allergy/AdvReac Type Severity Reaction Status Date / Time No Known Allergies Allergy Verified 06/19/17 13:23 Review of Systems ROS Statement: Those systems with pertinent positive or pertinent negative responses have been documented in the HPI. ROS Other: All systems not noted in ROS Statement are negative. Past Medical History Past Medical History: Hypertension Additional Past Medical History / Comment(s): Hypertension, alcoholism and smoker History of Any Multi-Drug Resistant Organisms: None Reported Past Surgical History: Cardiac Ablation, Orthopedic Surgery Additional Past Surgical History / Comment(s): 06/2017 Past Anesthesia/Blood Transfusion Reactions: No Reported Reaction Past Psychological History: No Psychological Hx Reported Smoking Status: Current every day smoker Past Alcohol Use History: None Reported Past Drug Use History: None Reported - Past Family History Father Family Medical History: Cancer, Coronary Artery Disease (CAD), Diabetes Mellitus Mother Family Medical History: Coronary Artery Disease (CAD), Myocardial Infarction ([place] ) General Exam - General Exam Comments Initial Comments: GENERAL: Patient is well-developed and well-nourished. Patient is nontoxic and well- hydrated and is in mild distress. ENT: Neck is soft and supple. No significant lymphadenopathy is noted. Oropharynx is clear. Moist mucous membranes. Neck has full range of motion without eliciting any pain. EYES: The sclera were anicteric and conjunctiva were pink and moist. Extraocular movements were intact and pupils were equal round and reactive to light. Eyelids were unremarkable. PULMONARY: As his heart rates 110 bpm and irregular. CARDIOVASCULAR: There is a regular rate and rhythm without any murmurs gallops or rubs. ABDOMEN: Soft and nontender with normal bowel sounds. No palpable organomegaly was noted. There is no palpable pulsatile mass. SKIN: Skin is clear with no lesions or rashes and otherwise unremarkable. NEUROLOGIC: Patient is alert and oriented x3. Cranial nerves II through XII are grossly intact. Motor and sensory are also intact. Normal speech, volume and content. Symmetrical smile. MUSCULOSKELETAL: Normal extremities with adequate strength and full range of motion. No lower extremity swelling or edema. No calf tenderness. LYMPHATICS: No significant lymphadenopathy is noted PSYCHIATRIC: Normal psychiatric evaluation. Limitations: no limitations Course Vital Signs 10/08/18 14:20 Temperature 98.8 F Pulse Rate 79 Respiratory 18 Rate Blood Pressure 140/93 O2 Sat by Pulse 98 Oximetry Medical Decision Making - Medical Decision Making EKG shows A. fib at 71 bpm QRS 96 QT interval 380 QTC is 412. Patient's EKG is only a 71 bpm however when I was in the room he was over 100 for the whole 10 minute interview. Disposition Clinical Impression: Atrial fibrillation with rapid ventricular response Disposition: ADMITTED IP TO THIS HOSP Referrals: Champ Swenson MD [Primary Care Provider] - 1-2 days Time of Disposition: 15:13
[2018-10-08] MEDS ORDERED: NITROGLYCERIN SL TABS 0.4 MG TAB SUBLINGUAL PRN (15:20)
[2018-10-08 20:06] LABS: Creatine Kinase 42 U/L (55-170)
[2018-10-08 20:15] LABS: Creatine Kinase MB 0.4 ng/mL (0.0-2.4); Troponin I <0.012 ng/mL (0.000-0.034)
[2018-10-08 20:50] VITALS: BMI 26.4
[2018-10-08] MEDS ORDERED: ACETAMINOPHEN TAB 325 MG TAB PO PRN (21:01)
[2018-10-08] MEDS ORDERED: ONDANSETRON 4 MG/2 ML VIAL IVP PRN (21:01)
[2018-10-08] MEDS ORDERED: MAGNESIUM HYDROXIDE 2,400 MG/10 ML CUP PO PRN (21:01)
[2018-10-08] MEDS ORDERED: LACTULOSE 20 GM/30 ML CUP PO PRN (21:01)
[2018-10-08] MEDS ORDERED: MELATONIN 3 MG TABLET PO PRN (21:01)
[2018-10-08] MEDS ORDERED: ALPRAZolam 0.5 MG TAB PO PRN (21:01)
[2018-10-08] MEDS ORDERED: NALOXONE 0.4 MG/ML 1 ML VIAL IV PRN (21:01)
[2018-10-08] MEDS ORDERED: CALCIUM CARBONATE 500 MG CHEWABLE PO PRN (21:01)
[2018-10-08] MEDS ORDERED: ATORVASTATIN 20 MG TAB PO SCH (21:15)
[2018-10-08] MEDS: APIXABAN 5 MG TAB PO SCH (21:23)
[2018-10-08] MEDS: CARVEDILOL 3.125 MG TAB PO SCH (21:23)
[2018-10-08 23:37] VITALS: RESP 18
[2018-10-09 01:05] LABS: Cholesterol 168 mg/dL (<200); HDL Cholesterol 64 mg/dL (40-60); LDL Cholesterol,Calculated 84 mg/dL (0-99); Triglycerides 102 mg/dL (<150)
[2018-10-09 01:11] LABS: Creatine Kinase 43 U/L (55-170)
[2018-10-09 01:24] LABS: Creatine Kinase MB 0.5 ng/mL (0.0-2.4); Troponin I <0.012 ng/mL (0.000-0.034)
[2018-10-09] MEDS: APIXABAN 5 MG TAB PO SCH (07:52)
[2018-10-09] MEDS: CARVEDILOL 3.125 MG TAB PO SCH (07:52)
[2018-10-09] MEDS ORDERED: MAGNESIUM OXIDE 400 MG TAB PO SCH (09:00)
[2018-10-09] MEDS ORDERED: FOLIC ACID 1 MG TAB PO SCH (09:00)
[2018-10-09] MEDS ORDERED: SPIRONOLACTONE 25 MG TAB PO SCH (09:00)
[2018-10-09] MEDS ORDERED: ASPIRIN 325 MG TAB PO SCH (09:00)
[2018-10-09] MEDS ORDERED: SERTRALINE 100 MG TAB PO SCH (09:00)
[2018-10-09] MEDS ORDERED: ASPIRIN 81 MG PO SCH (09:00)
[2018-10-09 09:12] VITALS: TEMP 97.8
[2018-10-09] MEDS ORDERED: CARVEDILOL 3.125 MG TAB PO STA (11:17)
[2018-10-09 11:49] VITALS: BP 128/69; PULSE 85
--- NOTE | 2018-10-09 11:56 | P.DS ---
Providers Date of admission: 10/08/18 15:20 Attending physician: Darby Sam Consults: 10/08/18 15:20 Consult Physician Urgent Consulting Provider: [facility] Consult Reason/Comments: A. fib with rapid ventricular response Do you want consulting provider notified?: Yes Primary care physician: Champ Swenson [facility] Course: Please refer to my HPI for further details Plan - Discharge Summary Discharge Rx Participant: No New Discharge Prescriptions: New Carvedilol [Coreg] 6.25 mg PO BID-W/MEALS #60 tab Discontinued Carvedilol [Coreg] 3.125 mg PO BID No Action Apixaban [Eliquis] 5 mg PO BID tab Aspirin 81 mg PO DAILY Magnesium Oxide [Mag-Ox] 400 mg PO DAILY #90 tab Spironolactone [Aldactone] 25 mg PO DAILY #90 tab Sertraline [Zoloft] 100 mg PO DAILY Losartan [Cozaar] 25 mg PO DAILY@1500 Folic Acid 0.8 mg PO DAILY ALPRAZolam [Xanax] 0.5 mg PO HS PRN PRN Reason: Insomnia Atorvastatin [Lipitor] 20 mg PO HS Discharge Medication List Apixaban [Eliquis] 5 mg PO BID tab 06/26/17 [Rx] Aspirin 81 mg PO DAILY 06/26/17 [Rx] Magnesium Oxide [Mag-Ox] 400 mg PO DAILY #90 tab 06/26/17 [Rx] Spironolactone [Aldactone] 25 mg PO DAILY #90 tab 06/26/17 [Rx] ALPRAZolam [Xanax] 0.5 mg PO HS PRN 10/08/18 [History] Atorvastatin [Lipitor] 20 mg PO HS 10/08/18 [History] Folic Acid 0.8 mg PO DAILY 10/08/18 [History] Losartan [Cozaar] 25 mg PO DAILY@1500 10/08/18 [History] Sertraline [Zoloft] 100 mg PO DAILY 10/08/18 [History] Carvedilol [Coreg] 6.25 mg PO BID-W/MEALS #60 tab 10/09/18 [Rx] Follow up Appointment(s)/Referral(s): Toi Noel MD [STAFF PHYSICIAN] - 2 Weeks Champ Swenson MD [Primary Care Provider] - 3 Days Discharge Disposition: HOME SELF-CARE
--- NOTE | 2018-10-09 11:56 | P.HPIM ---
History of Present Illness Patient is an 67-year-old gentleman came in with lightheadedness and palpitations found to be in atrial fibrillation all his symptoms started after drinking a pot of coffee. Patient is presently in A. fib but rate controlled, patient was given IV Cardizem which was subsequently discontinued. Patient has poor ejection fraction of 20% in the past which improved to 35% patient is presently euvolemic denied any orthopnea or paroxysmal nocturnal dyspnea denied any chest pain at this time. Patient was evaluated cardiology increasing the dose of Coreg and patient will be discharged today. Patient denied any fever chills cough runny nose no signs or symptoms of sepsis at this time patient is not dehydrated. No uvula URI like symptoms or symptoms of viral illness. Patient had an ablation procedure in the past. Review of Systems REVIEW OF SYSTEMS: CONSTITUTIONAL: No fever, no malaise, no fatigue. HEENT: No recent visual problems or hearing problems. Denied any sore throat. CARDIOVASCULAR: No chest pain, orthopnea, PND, , no syncope. PULMONARY: No shortness of breath, no cough, no hemoptysis. GASTROINTESTINAL: No diarrhea, no nausea, no vomiting, no abdominal pain. NEUROLOGICAL: No headaches, no weakness, no numbness. HEMATOLOGICAL: Denies any bleeding or petechiae. GENITOURINARY: Denies any burning micturition, frequency, or urgency. MUSCULOSKELETAL/RHEUMATOLOGICAL: Denies any joint pain, swelling, or any muscle pain. ENDOCRINE: Denies any polyuria or polydipsia. The rest of the 14-point review of systems is negative. Past Medical History Past Medical History: Hypertension Additional Past Medical History / Comment(s): Hypertension, alcoholism and smoker History of Any Multi-Drug Resistant Organisms: None Reported Past Surgical History: Cardiac Ablation, Orthopedic Surgery Additional Past Surgical History / Comment(s): 06/2017 Past Anesthesia/Blood Transfusion Reactions: No Reported Reaction Past Psychological History: No Psychological Hx Reported Smoking Status: Current every day smoker Past Alcohol Use History: None Reported Additional Past Alcohol Use History / Comment(s): pt started smoking 40 years ago, 1 ppd. patient was a drinker of a 6 pack per day but has quit drinking any alcohol. He lives at home with his . Past Drug Use History: None Reported - Past Family History Father Family Medical History: Cancer, Coronary Artery Disease (CAD), Diabetes Mellitus Mother Family Medical History: Coronary Artery Disease (CAD), Myocardial Infarction ([place] ) Medications and Allergies Home Medications Medication Instructions Recorded Confirmed Type Apixaban [Eliquis] 5 mg PO BID tab 06/26/17 10/08/18 Rx Aspirin 81 mg PO DAILY 06/26/17 10/08/18 Rx Magnesium Oxide [Mag-Ox] 400 mg PO DAILY #90 tab 06/26/17 10/08/18 Rx Spironolactone [Aldactone] 25 mg PO DAILY #90 tab 06/26/17 10/08/18 Rx ALPRAZolam [Xanax] 0.5 mg PO HS PRN 10/08/18 10/08/18 History Atorvastatin [Lipitor] 20 mg PO HS 10/08/18 10/08/18 History Folic Acid 0.8 mg PO DAILY 10/08/18 10/08/18 History Losartan [Cozaar] 25 mg PO DAILY@1500 10/08/18 10/08/18 History Sertraline [Zoloft] 100 mg PO DAILY 10/08/18 10/08/18 History Carvedilol [Coreg] 6.25 mg PO BID-W/MEALS #60 tab 10/09/18 Rx Allergies Allergy/AdvReac Type Severity Reaction Status Date / Time No Known Allergies Allergy Verified 10/08/18 15:56 Physical Exam Vitals: Vital Signs Temp Pulse Pulse Resp BP BP Pulse Ox 10/09/18 11:48 85 18 128/69 98 10/09/18 07:50 97.8 F 76 18 103/64 95 10/09/18 04:00 98.2 F 88 18 111/70 98 10/08/18 23:37 90 18 119/73 97 10/08/18 20:00 97.5 F L 70 18 135/91 97 10/08/18 19:00 82 16 97/66 96 10/08/18 18:30 75 16 106/81 97 10/08/18 18:00 89 13 98/71 98 10/08/18 17:30 92 19 112/83 98 10/08/18 17:00 84 23 94/69 98 10/08/18 16:30 77 12 110/78 98 10/08/18 16:00 81 7 L 108/76 98 10/08/18 15:30 97.5 F L 78 69 18 106/86 140/92 98 10/08/18 15:00 76 12 113/77 98 10/08/18 14:30 75 17 127/88 99 10/08/18 14:23 140/93 99 10/08/18 14:20 98.8 F 79 18 140/93 98 Intake and Output 10/08/18 10/09/18 10/09/18 22:59 06:59 14:59 Intake Total 480 240 Balance 480 240 Intake: Oral 480 240 Other: Voiding Method Toilet Toilet # Voids 2 1 Weight 90.718 kg PHYSICAL EXAMINATION: GENERAL: The patient is alert and oriented x3, not in any acute distress. Well developed, well nourished. HEENT: Pupils are round and equally reacting to light. EOMI. No scleral icterus. No conjunctival pallor. Normocephalic, atraumatic. No pharyngeal erythema. No thyromegaly. CARDIOVASCULAR: S1 and S2 present. No murmurs, rubs, or gallops. PULMONARY: Chest is clear to auscultation, no wheezing or crackles. ABDOMEN: Soft, nontender, nondistended, normoactive bowel sounds. No palpable organomegaly. MUSCULOSKELETAL: No joint swelling or deformity. EXTREMITIES: No cyanosis, clubbing, or pedal edema. NEUROLOGICAL: Gross neurological examination did not reveal any focal deficits. SKIN: No rashes. Results Labs: Abnormal Lab Results - Last 24 Hours (Table) 10/08/18 10/09/18 10/09/18 Range/Units 18:56 00:33 00:33 Total Creatine Kinase 42 L 43 L (55-170) U/L HDL Cholesterol 64 H (40-60) mg/dL Thrombosis Risk Factor Assmnt - Choose All That Apply Any of the Below Risk Factors Present?: Yes Each Factor Represents 1 point: Obesity (BMI >25) Other Risk Factors: No Thrombosis Risk Factor Assessment Total Risk Factor Score: 1 Thrombosis Risk Factor Assessment Level: Low Risk Assessment and Plan Plan: Atrial fibrillation with rapid ventricular rate: Presently rate controlled patient has chronic A. 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
--- NOTE | 2018-10-09 13:53 | P.CRDCN ---
History of Present Illness Consult date: 10/09/18 Reason for Consult (text): atrial fibrillation with RVR Chief complaint: palpitations, lightheadedness, shortness of breath History of present illness: This is a 57-year-old male patient of Dr. Noel with past medical history of atrial fibrillation status post ablation,hypertension, tobacco use and dependence, and remote history of alcohol abuse. The patient states that yesterday he drank a full pot of coffee. He usually drinks a couple cups of coffee and is gradually increasing amount that he drinks. He also did not eat yesterday and while shopping with his , developed palpitations, lightheadedness and shortness of breath. Patient went to [facility] where he was started on a Cardizem drip and then transferred to [facility] emergency center. Upon arrival, his rate was controlled on Cardizem drip was shut off. Patient is normally on Coreg 3.125 mg for rate control and eliquis. He states he has been taking his medications as directed. He does have an appointment with Dr. Noel in 2 weeks.EKG is atrial fibrillation at 100. Troponins are negative on 2 draws. Triglycerides 102, cholesterol 168, LDL 84, HDL 64. Upon examination, patient states that his symptoms have all resolved. Review of Systems All systems: negative Constitutional: Reports fatigue, Denies chills, Denies fever, Denies poor appetite, Denies weakness, Denies weight loss Eyes: denies blurred vision, denies pain Ears, nose, mouth and throat: Denies headache, Denies sore throat, Denies vertigo Cardiovascular: Reports dyspnea on exertion, Reports lightheadedness, Reports palpitations, Reports shortness of breath, Denies chest pain Respiratory: Denies cough Gastrointestinal: Denies abdominal pain, Denies diarrhea, Denies nausea, Denies vomiting Musculoskeletal: Denies myalgias Integumentary: Denies pruritus, Denies rash Neurological: Denies numbness, Denies weakness Psychiatric: Denies anxiety, Denies depression Endocrine: Denies fatigue, Denies weight change Past Medical History Past Medical History: Hypertension Additional Past Medical History / Comment(s): Hypertension, alcoholism and smoker History of Any Multi-Drug Resistant Organisms: None Reported Past Surgical History: Cardiac Ablation, Orthopedic Surgery Additional Past Surgical History / Comment(s): 06/2017 Past Anesthesia/Blood Transfusion Reactions: No Reported Reaction Past Psychological History: No Psychological Hx Reported Smoking Status: Current every day smoker Past Alcohol Use History: None Reported Additional Past Alcohol Use History / Comment(s): pt started smoking 40 years ago, 1 ppd. patient was a drinker of a 6 pack per day but has quit drinking any alcohol. He lives at home with his . Past Drug Use History: None Reported - Past Family History Father Family Medical History: Cancer, Coronary Artery Disease (CAD), Diabetes Mellitus Mother Family Medical History: Coronary Artery Disease (CAD), Myocardial Infarction ([place] ) Medications and Allergies Home Medications Medication Instructions Recorded Confirmed Type Apixaban [Eliquis] 5 mg PO BID tab 06/26/17 10/08/18 Rx Aspirin 81 mg PO DAILY 06/26/17 10/08/18 Rx Magnesium Oxide [Mag-Ox] 400 mg PO DAILY #90 tab 06/26/17 10/08/18 Rx Spironolactone [Aldactone] 25 mg PO DAILY #90 tab 06/26/17 10/08/18 Rx ALPRAZolam [Xanax] 0.5 mg PO HS PRN 10/08/18 10/08/18 History Atorvastatin [Lipitor] 20 mg PO HS 10/08/18 10/08/18 History Folic Acid 0.8 mg PO DAILY 10/08/18 10/08/18 History Losartan [Cozaar] 25 mg PO DAILY@1500 10/08/18 10/08/18 History Sertraline [Zoloft] 100 mg PO DAILY 10/08/18 10/08/18 History Carvedilol [Coreg] 6.25 mg PO BID-W/MEALS #60 tab 10/09/18 Rx Allergies Allergy/AdvReac Type Severity Reaction Status Date / Time No Known Allergies Allergy Verified 10/08/18 15:56 Physical Exam Vitals: Vital Signs Temp Pulse Pulse Resp BP BP Pulse Ox 10/09/18 07:50 97.8 F 76 18 103/64 95 10/09/18 04:00 98.2 F 88 18 111/70 98 10/08/18 23:37 90 18 119/73 97 10/08/18 20:00 97.5 F L 70 18 135/91 97 10/08/18 19:00 82 16 97/66 96 10/08/18 18:30 75 16 106/81 97 10/08/18 18:00 89 13 98/71 98 10/08/18 17:30 92 19 112/83 98 10/08/18 17:00 84 23 94/69 98 10/08/18 16:30 77 12 110/78 98 10/08/18 16:00 81 7 L 108/76 98 10/08/18 15:30 97.5 F L 78 69 18 106/86 140/92 98 10/08/18 15:00 76 12 113/77 98 10/08/18 14:30 75 17 127/88 99 10/08/18 14:23 140/93 99 10/08/18 14:20 98.8 F 79 18 140/93 98 Intake and Output 10/08/18 10/09/18 10/09/18 22:59 06:59 14:59 Intake Total 480 240 Balance 480 240 Intake: Oral 480 240 Other: Voiding Method Toilet Toilet # Voids 2 1 Weight 90.718 kg Gen: This is a 57-year-old male. He is sitting up in bed and appears to be comfortable and in no acute distress. HEENT: Head is atraumatic, normocephalic. Pupils equal, round. Sclerae is anicteric. conjunctiva pink. Extremities mouth are moist. NECK: Supple. No JVD. No lymphadenopathy. No thyromegaly. LUNGS: Clear to auscultation. No wheezes or rhonchi. No intercostal retractions. HEART: irregular rate and rhythm. No murmur. ABDOMEN: Soft. Bowel sounds are present. No masses. No tenderness. EXTREMITIES: No pedal edema. No calf tenderness. NEUROLOGICAL: Patient is awake, alert and oriented x3. Cranial nerves 2 through 12 are grossly intact. Results Cardiac Enzymes 10/08/18 10/09/18 Range/Units 18:56 00:33 CK-MB (CK-2) 0.4 0.5 (0.0-2.4) ng/mL Troponin I <0.012 <0.012 (0.000-0.034) ng/mL Lipids 10/09/18 Range/Units 00:33 Triglycerides 102 (<150) mg/dL Cholesterol 168 (<200) mg/dL HDL Cholesterol 64 H (40-60) mg/dL Current Medications Generic Name Dose Route Start Last Admin Trade Name Freq PRN Reason Stop Dose Admin Acetaminophen 650 mg 10/08/18 21:01 Tylenol Tab PO Q6HR PRN Mild Pain or Fever > 100.5 Alprazolam 0.5 mg 10/08/18 21:01 10/08/18 21:23 Xanax PO 0.5 mg HS PRN Administration Insomnia Apixaban 5 mg 10/08/18 21:15 10/09/18 07:52 Eliquis PO 5 mg BID SAMIR Administration Aspirin 81 mg 10/09/18 09:00 10/09/18 07:51 Aspirin PO 81 mg DAILY [facility] Administration Atorvastatin Calcium 20 mg 10/08/18 21:15 10/08/18 21:23 Lipitor PO 20 mg HS [facility] Administration Calcium Carbonate/Glycine 500 mg 10/08/18 21:01 Tums PO Q4HR PRN Dyspepsia Carvedilol 3.125 mg 10/08/18 21:15 10/09/18 07:52 Coreg PO 3.125 mg BID [facility] Administration Folic Acid 1 mg 10/09/18 09:00 10/09/18 07:51 Folic Acid PO 1 mg DAILY [facility] Administration Lactulose 20 gm 10/08/18 21:01 Cephulac PO DAILY PRN Constipation Losartan Potassium 25 mg 10/09/18 15:00 Cozaar PO DAILY@1500 [facility] Magnesium Hydroxide 2,400 mg 10/08/18 21:01 Milk Of Magnesia PO DAILY PRN Constipation Magnesium Oxide 400 mg 10/09/18 09:00 10/09/18 07:51 Mag-Ox PO 400 mg DAILY [facility] Administration Melatonin 3 mg 10/08/18 21:01 Melatonin PO HS PRN Insomnia Naloxone HCl 0.2 mg 10/08/18 21:01 Narcan IV Q2M PRN Opioid Reversal Nitroglycerin 0.4 mg 10/08/18 15:20 Nitrostat SUBLINGUAL Q5M PRN Chest Pain Ondansetron HCl 4 mg 10/08/18 21:01 Zofran IVP Q8HR PRN Nausea And Vomiting Sertraline HCl 100 mg 10/09/18 09:00 10/09/18 07:51 Zoloft PO 100 mg DAILY [facility] Administration Spironolactone 25 mg 10/09/18 09:00 10/09/18 07:51 Aldactone PO 25 mg DAILY SAMIR Administration Intake and Output 10/08/18 10/09/18 10/09/18 22:59 06:59 14:59 Intake Total 480 240 Balance 480 240 Intake: Oral 480 240 Other: Voiding Method Toilet Toilet # Voids 2 1 Weight 90.718 kg Assessment and Plan Plan: 1. paroxysmal atrial fibrillation, currently afebrile with controlled rate. 2. hypertension. 3. hyperlipidemia. 4. tobacco use and dependence. 5. history of alcohol abuse. Plan: increase Coreg to 6.25 mg twice daily. Patient will be given 1 dose prior to discharge. patient has been counseled regarding tobacco cessation and regarding appropriate use of caffeine. Patient has been cleared for discharge from cardiology. Nurse Practitioner note has been reviewed, I agree with a documented findings and plan of care. Patient was seen and examined.
[2018-10-09] MEDS ORDERED: LOSARTAN 25 MG TAB PO SCH (15:00)
[2018-10-09] MEDS ORDERED: CARVEDILOL 6.25 MG TAB PO SCH (17:30)
== END 2018-10-09 12:27 | disposition home or self-care (01) | DRG 309 ==
LOC: EC 14:16 → 3SCARD 15:20
PROVIDERS: ADMIT Internal Medicine; ATTEND Internal Medicine
DX: I48.2 Chronic atrial fibrillation (principal); I50.22 Chronic systolic (congestive) heart failure; Z79.01 Long term (current) use of anticoagulants; E78.5 Hyperlipidemia, unspecified; F17.210 Nicotine dependence, cigarettes, uncomplicated; I11.0 Hypertensive heart disease with heart failure; I42.6 Alcoholic cardiomyopathy; Z79.82 Long term (current) use of aspirin; Z79.899 Other long term (current) drug therapy; Z82.49 Family history of ischemic heart disease and other diseases of the circulatory system; Z83.3 Family history of diabetes mellitus; F10.21 Alcohol dependence, in remission
CPT/HCPCS: 80061; 82550; 82553; 84484; 93005

== ENCOUNTER 2018-12-01 11:47 | Day surgery (SDC) | payer OTHER ==
[~2018-12-01 11:47] MED LIST: SODIUM CHLORIDE 0.9% 1,000 ML IV SCH
[2018-12-01 12:21] LABS: Basophils # (A) 0.1 k/uL (0-0.2); Basophils % (A) 1 %; Eosinophils # (A) 0.3 k/uL (0-0.7); Eosinophils % (A) 4 %; HCT 41.7 % (39.0-53.0); HGB 14.4 gm/dL (13.0-17.5); Lymphocytes # (A) 2.5 k/uL (1.0-4.8); Lymphocytes % (A) 33 %; MCH 29.9 pg (25.0-35.0); MCHC 34.7 g/dL (31.0-37.0); MCV 86.3 fL (80.0-100.0); Mean Platelet Volume 6.4; Monocytes # (A) 0.7 k/uL (0-1.0); Monocytes % (A) 10 %; Neutrophils # (A) 3.8 k/uL (1.3-7.7); Neutrophils % (A) 50 %; Platelet Count 289 k/uL (150-450); RBC 4.83 m/uL (4.30-5.90); RDW 12.5 % (11.5-15.5); WBC 7.7 k/uL (3.8-10.6)
[2018-12-01] MEDS ORDERED: SUCCINYLCHOLINE CHLORIDE 100 MG/5 ML SYR IV ONE (12:22)
[2018-12-01] MEDS ORDERED: PHENYLEPHRINE-0.9% NACL SYG 1 MG/10 ML SYRINGE ONE (12:22)
[2018-12-01] MEDS ORDERED: ISOPROTERENOL 250 MCG/1.25 ML SYR IV ONE (12:22)
[2018-12-01] MEDS ORDERED: PROPOFOL 10 MG/ML 20 ML VIAL IV ONE (12:22)
[2018-12-01] MEDS ORDERED: LIDOCAINE 1% INJ 10MG/ML (20 ML MDV) ONE ×2 (12:22→13:09)
[2018-12-01] MEDS ORDERED: HEPARIN SODIUM,PORCINE 10,000 UNIT/ML 1 ML VIAL ONE (12:22)
[2018-12-01] MEDS ORDERED: ATROPINE SULFATE 0.4 MG/ML 1 ML VIAL ONE (12:22)
[2018-12-01] MEDS ORDERED: MIDAZOLAM 2 MG/2 ML VIAL ONE (12:22)
[2018-12-01] MEDS ORDERED: PROTAMINE SULFATE 10 MG/ML 5 ML VIAL IV ONE (12:22)
[2018-12-01] MEDS ORDERED: fentaNYL (PF) 50 MCG/ML 2 ML AMP ONE (12:22)
[2018-12-01 12:35] LABS: Anion Gap 9 mmol/L; Blood Urea Nitrogen 18 mg/dL (9-20); Carbon Dioxide 25 mmol/L (22-30); Chloride 106 mmol/L (98-107); Glucose 92 mg/dL (74-99); Potassium 4.3 mmol/L (3.5-5.1); Sodium 140 mmol/L (137-145)
[2018-12-01] MEDS ORDERED: LIDOCAINE 1% INJ 10MG/ML (20 ML MDV) SQ ONE (13:08)
[2018-12-01] MEDS ORDERED: HEPARIN SOD,PORK IN 0.45% NACL 25,000 UNIT in 0.45% NACL 1 250ML.BAG IV ONE (13:21)
[2018-12-01] MEDS ORDERED: ACETAMINOPHEN TAB 325 MG TAB PO PRN (14:53)
[2018-12-01] MEDS ORDERED: IOPAMIDOL-370 100ML BTL INJ ONE (14:53)
[2018-12-01] MEDS ORDERED: ACETAMINOPHEN IV (For NPO) 1,000 MG in EMPTY BAG 1 BAG IVPB ONE (14:53)
[2018-12-01] MEDS ORDERED: HYDROcodone/APAP 5-325MG 1 EACH TAB PO PRN (14:53)
[2018-12-01] MEDS ORDERED: ALPRAZolam 0.5 MG TAB PO PRN (14:54)
--- NOTE | 2018-12-01 15:22 | P.PCN ---
Preoperative Diagnosis: Diagnosis Atrial fibrillation, symptomatic, refractory to therapy underlying sick sinus syndrome Nonischemic cardio myopathy Stable CHF Result Successful pulmonary vein isolation of all veins using cryo-ablation Complete entrance block in all 4 veins confirmed No evidence for phrenic nerve injury Esophageal deflection NO Electrical cardioversion with a synchronized shock across the chest NO Procedure details Patient was brought to the EP lab in a fasting state. Written informed consent was obtained prior to the procedure. Procedure performed under general anesthesia After initial muscle relaxant use, muscle relaxants were not given thereafter in order to assess phrenic nerve during procedure. Patient prepped and draped as per protocol Full cryo-set up with standard preparation of the cryoablation tools done. Femoral Venous access obtained on the right and left groins Venous and arterial Sheaths placed. Diagnostic catheters for the high right atrium, phrenic nerve stimulation and pacing, His bundle, RV and coronary sinus placed Intracardiac echo catheter placed. Long sheath placed in the right atrium Left and right transseptal catheterization performed under intracardiac echo guidance. Intravenous heparin with aCT above 300 Later, catheter positioning and balloon positioning in the left atrium, under intracardiac echo guidance Comprehensive diagnostic EP study with Drug infusion Coronary sinus pacing and recording Baseline measurements Sinus cycle length 679 ms, OH interval 165 ms QRS 125 ms and QT interval 382 ms AH 56 ms, HV 54 ms Atrial pacing performed from the high right atrium and the coronary sinus RV pacing Isuprel used Sinus recovery times at 600 ms was 1016 ms. AV node Wenckebach block to 90 ms VA Wenckebach block 410 ms Transseptal catheterization performed RA pressure 16/8/12 LA pressure 22/12/16 Transseptal catheterization performed with standard sheath. The cryoablation sheath was then placed with an over the wire exchange without any acute complications. All 4 pulmonary veins were isolated in the following sequence: Left superior followed by left inferior followed by right superior followed by right inferior The cryo-ablation balloon was placed at the os of each vein 1.5 mL of IV dye was injected to confirm an occluded vein Goal during cryoablation was to achieve complete occlusion of the pulmonary vein , achieve -30C at 30 seconds and achieve -40C at 60 seconds and a time to affect of less than 60-90 seconds, . If not the balloon was repositioned to obtain this result After completion of Cryoblation with durations from 180-240 seconds, entrance block was confirmed with the Attain circular catheter in a roving fashion around the antrum of the pulmonary veins Phrenic nerve pacing was performed from the SVC, right innominate vein area and diaphragm voltage was monitored. Diaphragmatic contractions were also monitored manually for strength of contraction. Parameter goals for each cryo freeze -30 C by 30 seconds -40 degrees C by 60 seconds Minimum between minus 40-55C Thaw time greater than 10 seconds Balloon visualized by intracardiac echo The esophagus was intubated. Esophageal Temperature monitoring with a CIRCA catheter formed. Esophageal deflection for hypothermia of the esophagus below 32C Left superior pulmonary vein/common left 4 minute followed by 60 seconds and then a 2 minute carinal lesion just outside the roof of the left superior vein at the junction of the left atrium and the left common loss Complete isolation in the first 60 seconds of the first cryoablation Left inferior pulmonary vein 4 minute cryoablation him a complete isolation Right superior pulmonary vein, during phrenic nerve pacing 4 minute cryoablation complete isolation Right inferior pulmonary vein, during phrenic nerve pacing 4 minute cryoablation complete isolation At the end of the procedure the Achieve catheter was once again used to check for entrance block Phrenic nerve stimulation was performed to confirm diaphragmatic stimulation the end of the procedure Cine fluoroscopy was performed at the very end of the procedure to confirm movement of both diaphragms with inspiration and expiration At the end of the procedure the patient was extubated Heparin was reversed Venous sheaths were removed and hemostasis assured Procedures performed (PVI - CRYO Ablation) Invasive hemodynamic monitoring while general anesthesia, right femoral arterial line for monitoring and sampling Comprehensive diagnostic EP study CS pacing and recording Left and right transseptal catheterization Catheter the mapping of the tachycardia (NOT 3D mapping) Intracardiac echocardiography Pulmonary vein isolation with transseptal and comprehensive EPS, [id number] Drug Infusion [id number] Anesthesia: GETA Disposition: same day
[2018-12-01] MEDS: CARVEDILOL 6.25 MG TAB PO SCH (16:58)
[2018-12-01 17:19] VITALS: BMI 27.5
[2018-12-01] MEDS: FAMOTIDINE 20 MG TAB PO SCH (18:54)
[2018-12-01] MEDS: COLCHICINE 0.6 MG EACH PO SCH ×2 (18:54→20:47)
[2018-12-01] MEDS: APIXABAN 5 MG TAB PO SCH (20:46)
[2018-12-01] MEDS ORDERED: ATORVASTATIN 20 MG TAB PO SCH (21:00)
--- NOTE | 2018-12-02 07:28 | P.DS ---
Providers Attending physician: Toi Noel Primary care physician: [facility] Course: Patient is doing well. No chest discomfort no dizziness lightheadedness or palpitations Resting comfortably in bed. Did Go to the bathroom. Last eye there was a bit of oozing from the right groin but this morning there is no oozing no swelling. Mild tenderness in the venous site area on the right side Sutures removed both sides Normal heart sounds no murmurs or gallops no rub Breath sounds are clear no rhonchi no crackles no adventitious sounds Abdomen soft Extremities warm pulses distally are without palpable Impression Severe nonischemic at a myopathy which has improved to about 45% Paroxysmal atrial fibrillation, symptomatic Sick Sinus Syndrome Status post successful cryoablation of the pulmonary veins yesterday Suggest Ambulate in the hallways If stable from a cardiovasc standpoint and groins are stable then he will be discharged home clear 4 PM No changes in medications Follow-up in the office for a groin check within 2 weeks and keep follow-up appointment Dr. Quintana in January Patient Condition at Discharge: Stable Plan - Discharge Summary Discharge Rx Participant: No New Discharge Prescriptions: Continue Apixaban [Eliquis] 5 mg PO BID tab Magnesium Oxide [Mag-Ox] 400 mg PO DAILY #90 tab Sertraline [Zoloft] 100 mg PO QAM Losartan [Cozaar] 25 mg PO DAILY@1500 Folic Acid 0.8 mg PO DAILY ALPRAZolam [Xanax] 0.5 mg PO HS PRN PRN Reason: Insomnia Atorvastatin [Lipitor] 20 mg PO HS Carvedilol [Coreg] 6.25 mg PO BID-W/MEALS #60 tab Spironolactone [Aldactone] 25 mg PO QAM Aspirin 81 mg PO QAM Discharge Medication List Apixaban [Eliquis] 5 mg PO BID tab 06/26/17 [Rx] Magnesium Oxide [Mag-Ox] 400 mg PO DAILY #90 tab 06/26/17 [Rx] ALPRAZolam [Xanax] 0.5 mg PO HS PRN 10/08/18 [History] Atorvastatin [Lipitor] 20 mg PO HS 10/08/18 [History] Folic Acid 0.8 mg PO DAILY 10/08/18 [History] Losartan [Cozaar] 25 mg PO DAILY@1500 10/08/18 [History] Sertraline [Zoloft] 100 mg PO QAM 10/08/18 [History] Carvedilol [Coreg] 6.25 mg PO BID-W/MEALS #60 tab 10/09/18 [Rx] Aspirin 81 mg PO QAM 11/29/18 [History] Spironolactone [Aldactone] 25 mg PO QAM 11/29/18 [History] Follow up Appointment(s)/Referral(s): Toi Noel MD [STAFF PHYSICIAN] - 2 Weeks (Groin check within 1-2 weeks) Activity/Diet/Wound Care/Special Instructions: Post EP study - Ablation instructions 1. Keep access sites dry for 2 days. 2. No heavy lifting or straining for 2 days. 3. Avoid bending the hips repeatedly for 2 days. 4. You may go up and down stairs slowly Call if the following is noted 1. Bleeding, increasing swelling or pain at the access sites. 2. Increasing chest discomfort, especially upon taking a deep breath. 3. Increasing shortness of breath, at rest or with exertion. 4. Undue cough / phlegm 5. Difficulty or pain while swallowing. 6. Pain or change in color in the extremities. 7. Fever, chills, rigors. 8. Increasing headache or neurologic symptoms. 9. Dizziness, fainting, palpitations No changes in medications Discharge home by 4 PM today he feels relatively stable and groins stable Patient to ambulate in the hallways starting this morning, after breakfast Discharge Disposition: HOME SELF-CARE
--- NOTE | 2018-12-02 07:31 | P.PRLE ---
RE: Chace Jones Dear Dr. Leela Mas underwent successful cryoablation of the pulmonary veins for management of atrial fibrillation. Complete isolation of all 4 pulmonary veins was performed and hopefully this results in a significant reduction in his episodes of atrial fibrillation. His left ventricular ejection fraction was about 45% which represents a significant improvement since last few years and he is an appropriate medical treatment as well as ELIQUIS for stroke prevention and I will continue all his medications unchanged at this time Thank you for entrusting me with the care of the patient Warm regards Sincerely Toi Noel
[2018-12-02] MEDS: FAMOTIDINE 20 MG TAB PO SCH (08:01)
[2018-12-02] MEDS: APIXABAN 5 MG TAB PO SCH (08:01)
[2018-12-02] MEDS: COLCHICINE 0.6 MG EACH PO SCH (08:02)
[2018-12-02] MEDS: CARVEDILOL 6.25 MG TAB PO SCH (08:02)
[2018-12-02 08:46] VITALS: RESP 18
[2018-12-02] MEDS ORDERED: SPIRONOLACTONE 25 MG TAB PO SCH (09:00)
[2018-12-02] MEDS ORDERED: ASPIRIN 81 MG PO SCH (09:00)
[2018-12-02] MEDS ORDERED: FOLIC ACID 1 MG TAB PO SCH (09:00)
[2018-12-02] MEDS ORDERED: MAGNESIUM OXIDE 400 MG TAB PO SCH (09:00)
[2018-12-02] MEDS ORDERED: SERTRALINE 100 MG TAB PO SCH (09:00)
[2018-12-02 12:09] VITALS: BP 142/79; PULSE 67; TEMP 97.3
[2018-12-02] MEDS ORDERED: LOSARTAN 25 MG TAB PO SCH (15:00)
[2018-12-02] MEDS ORDERED: COLCHICINE 0.6 MG EACH PO SCH (18:00)
== END 2018-12-02 15:45 | disposition home or self-care (01) ==
LOC: CATHEP 11:47 → 1SOBS 15:09 → CATHEP 12-02 15:45
PROVIDERS: ATTEND Internal Medicine Clinical Cardiac Electrophysiology
DX: I48.0 Paroxysmal atrial fibrillation (principal); I49.5 Sick sinus syndrome; I11.0 Hypertensive heart disease with heart failure; I50.9 Heart failure, unspecified; I48.92 Unspecified atrial flutter; I42.8 Other cardiomyopathies; Z79.899 Other long term (current) drug therapy; Z82.49 Family history of ischemic heart disease and other diseases of the circulatory system; F10.10 Alcohol abuse, uncomplicated; Z79.01 Long term (current) use of anticoagulants; Z79.82 Long term (current) use of aspirin; F17.210 Nicotine dependence, cigarettes, uncomplicated
CPT/HCPCS: 85347; 93623; 93662; 93609; 93656; 80048; 85025; C1769 ×4; C1894 ×3; C1730 ×2; C1759; C1893; C1733; C1766; J2250; J2720; J0461; J1644 ×2; J2001; J3010; J0131; J2370; J0330; J2704; Q9967